=== PATIENT | female | born 1970 | race Caucasian/White ===

== ENCOUNTER 2017-08-18 21:54 | Inpatient (IN) | payer OTHER ==
[~2017-08-18] VITALS: Ht 160 cm; Wt 75.2 kg
[~2017-08-18 21:54] MED LIST: GLC/500 PO; GLIP5TAB11 PO; IBUP-103 PO; METH4PAK PO
[2017-08-18] MEDS ORDERED: MoRPHine SULFATE 4 MG/ML 1 ML CARP\\VIAL ONE (22:14)
[2017-08-18] MEDS ORDERED: SODIUM CHLORIDE 0.9% 1000ML 1,000 ML IV STA (22:14)
[2017-08-18] MEDS ORDERED: ASPIRIN 324 MG CHEW ONE (22:14)
[2017-08-18] MEDS ORDERED: ASPIRIN 81 MG CHEW PO STA (22:14)
[2017-08-18] MEDS ORDERED: MoRPHine SULFATE 4 MG/ML 1 ML CARP\\VIAL IV STA (22:14)
[2017-08-18] MEDS ORDERED: NITROGLYCERIN 0.4 MG SL PER TAB CHARGE ONE (22:15)
[2017-08-18] MEDS ORDERED: NITROGLYCERIN 0.4 MG SL PER TAB CHARGE SL PRN ×2 (22:15→23:45)
[2017-08-18] MEDS ORDERED: ONDANSETRON INJ 2 MG/ML 2 ML VIAL ONE ×2 (22:19→22:34)
--- NOTE | 2017-08-18 22:20 | EMERGENCY ROOM VISIT NOTE ---
History Report prepared by Donaldo: Elijah Alegre Under the Supervision of: Dr. Jerel Vines D.O. First contact with patient: 22:13 Chief Complaint: CHEST PAIN Stated Complaint: CHEST PAINS, VOMITTING History of Present Illness The patient is a 47 year old female who presents to the Emergency Room with complaints of worsening chest pain beginning 6 hours ago. She currently rates her discomfort a 10/10 in severity. The patient states she was making dinner when her pain began. She reports it slowly worsened throughout the night, and she became short of breath. The patient states she has a history of diabetes, hypertension, and smoking. The patient reports her father of a heart attack. She notes she did not take anything for her symptoms, and she is not allergic to anything. Source of History: patient Onset: 6 hours ago Position: chest Symptom Intensity: 10/10 Timing: worsening Associated Symptoms: + SOB Review of Systems See HPI for pertinent positives and negatives. A total of ten systems were reviewed and were otherwise negative. Past Medical & Surgical Medical Problems: (1) Diabetes (2) HTN (hypertension) Family History FH: heart attack FATHER Social History Smoking Status: Current Every Day Smoker Marital Status: single Housing Status: lives with family Current/Historical Medications Unable to Obtain Active Prescriptions or Reported Meds Allergies Coded Allergies: No Known Allergies (Unverified , 08/18/17) Physical Exam Vital Signs Date Time Temp Pulse Resp B/P (MAP) Pulse Ox O2 Delivery O2 Flow Rate FiO2 08/18/17 22:45 85 23 101/74 97 Nasal Cannula 2.0 08/18/17 22:40 84 21 110/70 97 Nasal Cannula 2.0 08/18/17 22:35 80 15 104/67 98 Nasal Cannula 2.0 08/18/17 22:30 83 15 139/73 98 Nasal Cannula 2.0 08/18/17 22:25 79 25 127/80 98 Nasal Cannula 2.0 08/18/17 22:23 83 25 121/95 99 Nasal Cannula 2.0 08/18/17 22:19 97 08/18/17 22:18 92 25 160/99 97 Nasal Cannula 2.0 08/18/17 22:17 98 Nasal Cannula 2.0 08/18/17 22:07 100 Room Air 08/18/17 22:07 100 Room Air 08/18/17 22:07 36.8 100 20 161/101 100 Room Air Physical Exam GENERAL: Awake, alert, well-appearing, moaning in distress. HENT: Normocephalic, atraumatic. Oropharynx unremarkable. EYES: Normal conjunctiva. Sclera non-icteric. NECK: Supple. No nuchal rigidity. FROM. No JVD. RESPIRATORY: Clear to auscultation. CARDIAC: Regular rate, normal rhythm. Extremities warm and well perfused. Pulses equal. ABDOMEN: Soft, non-distended. No tenderness to palpation. No rebound or guarding. No masses. RECTAL: Deferred. MUSCULOSKELETAL: Chest examination reveals no tenderness. The back is symmetrical on inspection without obvious abnormality. There is no CVA tenderness to palpation. No joint edema. LOWER EXTREMITIES: Calves are equal size bilaterally and non-tender. No edema. No discoloration. NEURO: Normal sensorium. No sensory or motor deficits noted. SKIN: No rash or jaundice noted. Medical Decision & Procedures ER Provider Diagnostic Interpretation: X-ray: Per my interpretation, radiologist review. CHEST ONE VIEW PORTABLE CLINICAL HISTORY: PORTABLE chest pain COMPARISON STUDY: No previous studies for comparison. FINDINGS: The bones soft tissues and hemidiaphragms are normal. The cardiomediastinal silhouette is normal. The lungs are clear. The pulmonary vasculature is normal. IMPRESSION: Negative chest. The above report was generated using voice recognition software. It may contain grammatical, syntax or spelling errors. Electronically signed by: Braulio Flores M.D. 08/18/2017 10:45 PM Dictated Date/Time: 08/18/2017 10:45 PM Laboratory Results 08/18/17 22:15 Red Blood Count 4.78, Mean Corpuscular Volume 82.8, Mean Corpuscular Hemoglobin 29.3, Mean Corpuscular Hemoglobin Concent 35.4, Mean Platelet Volume 10.1, Neutrophils (%) (Auto) 71.0, Lymphocytes (%) (Auto) 23.9, Monocytes (%) (Auto) 3.9, Eosinophils (%) (Auto) 0.7, Basophils (%) (Auto) 0.2, Neutrophils # (Auto) 9.61, Lymphocytes # (Auto) 3.24, Monocytes # (Auto) 0.53, Eosinophils # (Auto) 0.10, Basophils # (Auto) 0.03 08/18/17 22:15 Test 08/18/17 22:14 08/18/17 22:15 08/18/17 22:23 08/18/17 22:25 White Blood Count 13.55 K/uL (4.8-10.8) Red Blood Count 4.78 M/uL (4.2-5.4) Hemoglobin 14.0 g/dL (12.0-16.0) Hematocrit 39.6 % (37-47) Mean Corpuscular Volume 82.8 fL (80-100) Mean Corpuscular Hemoglobin 29.3 pg (25-34) Mean Corpuscular Hemoglobin Concent 35.4 g/dl (32-36) Platelet Count 271 K/uL (130-400) Mean Platelet Volume 10.1 fL (7.4-10.4) Neutrophils (%) (Auto) 71.0 % Lymphocytes (%) (Auto) 23.9 % Monocytes (%) (Auto) 3.9 % Eosinophils (%) (Auto) 0.7 % Basophils (%) (Auto) 0.2 % Neutrophils # (Auto) 9.61 K/uL (1.4-6.5) Lymphocytes # (Auto) 3.24 K/uL (1.2-3.4) Monocytes # (Auto) 0.53 K/uL (0.11-0.59) Eosinophils # (Auto) 0.10 K/uL (0-0.5) Basophils # (Auto) 0.03 K/uL (0-0.2) RDW Standard Deviation 38.0 fL (36.4-46.3) RDW Coefficient of Variation 12.7 % (11.5-14.5) Immature Granulocyte % (Auto) 0.3 % Immature Granulocyte # (Auto) 0.04 K/uL (0.00-0.02) Nucleated RBC Absolute Count (auto) 0.02 K/uL (0-0) Nucleated Red Blood Cells % 0.1 % Prothrombin Time 10.0 SECONDS (9.0-12.0) Prothromb Time International Ratio 0.9 (0.9-1.1) Activated Partial Thromboplast Time 25.3 SECONDS (21.0-31.0) Partial Thromboplastin Ratio 1.0 Est Creatinine Clear Calc Drug Dose 69.3 ml/min Estimated GFR () 82.1 Estimated GFR (Non- 70.8 BUN/Creatinine Ratio 12.7 (10-20) Calcium Level 9.3 mg/dl (8.5-10.1) Magnesium Level 2.0 mg/dl (1.8-2.4) Total Bilirubin 0.2 mg/dl (0.2-1) Direct Bilirubin < 0.1 mg/dl (0-0.2) Aspartate Amino Transf (AST/SGOT) 8 U/L (15-37) Alanine Aminotransferase (ALT/SGPT) 20 U/L (12-78) Alkaline Phosphatase 149 U/L (45-117) Total Creatine Kinase 64 U/L (26-192) Creatine Kinase MB 1.2 ng/ml (0.5-3.6) Creatine Kinase MB Ratio 1.9 (0-3.0) Total Protein 8.4 gm/dl (6.4-8.2) Albumin 3.7 gm/dl (3.4-5.0) Lipase 159 U/L (73-393) Bedside Troponin I 0.050 ng/ml (0-0.045) Bedside Hemoglobin 15.0 g/dl (12.0-16.0) Bedside Hematocrit 44 % (37-47) Bedside Sodium 135 mEq/L (135-144) Bedside Potassium 3.9 mEq/L (3.3-5.0) Bedside Chloride 95 mEq/L (101-112) Bedside Total CO2 28 mEq/l (24-31) Anion Gap 18.0 mmol/L (16-25) Bedside Blood Urea Nitrogen 12 mg/dl (7-18) Bedside Creatinine 0.7 mg/dl (0.6-1.3) Bedside Glucose (other) 421 mg/dl (70-99) Bedside Ionized Calcium (Brian) 1.16 mmol/l (1.12-1.32) Test 08/18/17 23:00 Laboratory results reviewed by me Medications Administered Medications (Trade) Dose Ordered Sig/Russ Route Start Time Stop Time Status Last Admin Dose Admin Sodium Chloride 1,000 ml @ 999 mls/hr Q1H1M STAT IV 08/18/17 22:14 08/18/17 23:14 DC 08/18/17 22:14 999 MLS/HR Morphine Sulfate (MoRPHine SULFATE INJ) 4 mg STK-MED ONCE .ROUTE 08/18/17 22:14 08/18/17 22:15 DC 08/18/17 22:14 4 MG Aspirin (Aspirin Chew) 324 mg STK-MED ONCE .ROUTE 08/18/17 22:14 08/18/17 22:15 DC 08/18/17 22:14 324 MG Nitroglycerin (Nitrostat Tab) 1.2 mg STK-MED ONCE .ROUTE 08/18/17 22:15 08/18/17 22:16 DC 08/18/17 22:15 1.2 MG Nitroglycerin (Nitrostat Tab) 0.4 mg PRN PRN SL 08/18/17 22:15 09/17/17 22:14 08/18/17 22:27 0.4 MG Ondansetron HCl (Zofran Inj) 4 mg STK-MED ONCE .ROUTE 08/18/17 22:19 08/18/17 22:20 DC 08/18/17 22:23 4 MG Miscellaneous Information (Nursing Verbal Med Order) 1 ea ONE ONCE N/A 08/18/17 22:30 08/18/17 22:31 DC 08/18/17 22:28 1 EA Heparin Sodium (Porcine) (Heparin Iv Bolus) 10,000 unit STK-MED ONCE .ROUTE 08/18/17 22:34 08/18/17 22:35 DC 08/18/17 22:34 8,000 UNIT Ondansetron HCl (Zofran Inj) 4 mg STK-MED ONCE .ROUTE 08/18/17 22:34 08/18/17 22:35 DC 08/18/17 22:36 4 MG Midazolam HCl (Versed Inj) 2 mg STK-MED ONCE .ROUTE 08/18/17 22:34 08/18/17 22:35 DC 08/18/17 22:34 1 MG Fentanyl Citrate (Fentanyl Inj) 100 mcg STK-MED ONCE .ROUTE 08/18/17 22:34 08/18/17 22:35 DC 08/18/17 22:34 25 MCG ECG Indication: chest pain Rate (beats per minute): 83 Rhythm: normal sinus Findings: ST elevation (precordial leads), other (reciprocal changes in leads II, III, and AVF: consistent with anteroseptal [place]) ED Course 2212: The patient was evaluated in room A01. A complete history and physical exam was performed. 2214 Ordered Morphine Sulfate 4mg IV, Aspirin 324 mg PO, Sodium Chloride 1000 ml @ 999 mls/hr IV 2215: Ordered Nitroglycerin 0.4mg SL, Nitroglycerin 1.2mg SL 221: Ordered Ondansetron HCl 4mg IV. Reevaluated the patient. Her pain is still as severe as before. 223: I discussed the patient's case with Dr. Olvera, Cardiology. He will evaluate to the patient. 223: Ordered Ondansetron HCl 4mg IV 2258: I discussed the patient's case with Dr. Reed [facility]. The patient will be evaluated for further management and care. Medical Decision Differential diagnoses include but are not limited to; angina, acute coronary syndrome, acute [place], thoracic dissection, anxiety. STEMI alert was called, case is discussed with Dr. Olvera will take the patient cardiac labor and delivery registered nurse. Patient was given aspirin nitroglycerin morphine and Zofran. Patient continued have 10 out of 10 pain has an EKG is consistent with anteroseptal [place]. This case was also discussed with the [facility] for admission Consults Time Called: 2216 Consulting Physician: Dr. Olvera, Cardiology Returned Call: [phone] I discussed the patient's case with Dr. Olvera Cardiology. He will evaluate to the patient. Additional Consults: Time Called: 2240 Consulted Physician: Dr. Reed [facility] Returned Call: [phone] Additional Comments: I discussed the patient's case with Dr. Reed [facility]. The patient will be evaluated for further management and care. Impression Primary Impression: Acute myocardial infarction Critical Care I have personally spent greater than 35 minutes of critical care time in the direct management of this patient. This includes bedside care, interpretation of diagnostic studies, and testing, discussion with consultants, patient, and family members, and other required patient management activities. This 35 minutes is in excess of all separately billable procedures. Scribe Attestation The scribe's documentation has been prepared under my direction and personally reviewed by me in its entirety. I confirm that the note above accurately reflects all work, treatment, procedures, and medical decision making performed by me. Departure Information Dispostion Being Evaluated By Hospitalist Prescriptions Unable to Obtain Active Prescriptions or Reported Meds Referrals Scar Ricks D.O. (PCP) Patient Instructions My [facility]
[2017-08-18] MEDS ORDERED: NURSING VERBAL MED ORDER ONE (22:30)
[2017-08-18 22:31] LABS: BASO % 0.2 %; BASO ABS # 0.03 K/uL (0-0.2); EOS % 0.7 %; HEMATOCRIT 39.6 % (37-47); IG# 0.04 K/uL (0.00-0.02); LYMPH % 23.9 %; LYMPH ABS # 3.24 K/uL (1.2-3.4); MEAN CELL VOLUME 82.8 fL (80-100); MEAN CORPUSCULAR HEMOGLOBIN 29.3 pg (25-34); MEAN CORPUSCULAR HGB CONC 35.4 g/dl (32-36); MEAN PLATELET VOLUME 10.1 fL (7.4-10.4); MONO % 3.9 %; MONO ABS # 0.53 K/uL (0.11-0.59); NEUT ABS # 9.61 K/uL (1.4-6.5); NUCLEATED RED BLOOD CELL ABS 0.02 K/uL (0-0); PLATELET COUNT 271 K/uL (130-400); RED CELL DISTRIBUTION WIDTH CV 12.7 % (11.5-14.5); WHITE BLOOD COUNT 13.55 K/uL (4.8-10.8)
[2017-08-18] MEDS ORDERED: NITROGLYCERIN/D5W 100MCG/ML 20ML SYR ONE (22:33)
[2017-08-18] MEDS ORDERED: NiCARDipine HCL INJ 2.5 MG/ML 10 ML AMP ONE (22:33)
[2017-08-18] MEDS ORDERED: FENTANYL CITRATE INJ 50 MCG/1 ML 2 ML VIAL ONE (22:34)
[2017-08-18] MEDS: HEPARIN SOD (PORCINE) 1000 UNIT/ML 10 ML VIAL ONE ×2 (22:34→23:23)
[2017-08-18] MEDS ORDERED: MIDAZOLAM HCL 1 MG/ML 2ML VIAL ONE (22:34)
[2017-08-18 22:38] LABS: ISTAT CREATININE 0.7 mg/dl (0.6-1.3); ISTAT IONIZED CALCIUM 1.16 mmol/l (1.12-1.32); ISTAT POTASSIUM 3.9 mEq/L (3.3-5.0)
[2017-08-18 22:42] LABS: INR 0.9 (0.9-1.1); PTT PATIENT 25.3 SECONDS (21.0-31.0)
--- NOTE | 2017-08-18 22:47 | DIAGNOSTIC IMAGING REPORT ---
CHEST ONE VIEW PORTABLE CLINICAL HISTORY: PORTABLE chest pain COMPARISON STUDY: No previous studies for comparison. FINDINGS: The bones soft tissues and hemidiaphragms are normal. The cardiomediastinal silhouette is normal. The lungs are clear. The pulmonary vasculature is normal. IMPRESSION: Negative chest. The above report was generated using voice recognition software. It may contain grammatical, syntax or spelling errors. Electronically signed by: Braulio Flores M.D. 08/18/2017 10:45 PM Dictated Date/Time: 08/18/2017 10:45 PM
--- NOTE | 2017-08-18 22:50 | Procedure Note ---
Pre-Mod Sedation Assessment General Date of Moderate Sedation: Aug 18, 2017. Vital Signs: Vital Signs Past 12 Hours Date Time Temp Pulse Resp B/P (MAP) Pulse Ox O2 Delivery O2 Flow Rate FiO2 08/18/17 22:23 83 25 121/95 99 Nasal Cannula 2.0 08/18/17 22:19 97 08/18/17 22:18 92 25 160/99 97 Nasal Cannula 2.0 08/18/17 22:17 98 Nasal Cannula 2.0 08/18/17 22:07 100 Room Air 08/18/17 22:07 100 Room Air 08/18/17 22:07 36.8 100 20 161/101 100 Room Air Review Cardiovascular: regular rate, rhythm, no edema Abdomen: normal bowel sounds, non tender Lungs: chest non-tender, lungs clear Airway Class: III Pre-Sedation Airway Assessment Oral Cavity: WNL Able to Visualize Vocal Cords: No Short Thick Neck: No Hx of Sleep Apnea: No Smoking Status: Current Every Day Smoker Mallampati Classification: Class III ASA Classification: Class IV Procedure Planning Contraindications-for Mod Sed: None Yes Notes The planned sedation has been discussed with the patient and consent obtained. I have identified the patient, determined the appropriateness of sedation and have assessed the patient immediately prior to the procedure. All medicine(s) and interventions are by my order.
[2017-08-18 23:02] LABS: ALBUMIN 3.7 gm/dl (3.4-5.0); ALKALINE PHOSPHATASE 149 U/L (45-117); ALT/SGPT 20 U/L (12-78); AST/SGOT 8 U/L (15-37); BLOOD UREA NITROGEN 12 mg/dl (7-18); CALCIUM 9.3 mg/dl (8.5-10.1); CARBON DIOXIDE 27 mmol/L (21-32); CKMB 1.2 ng/ml (0.5-3.6); CREATININE 0.95 mg/dl (0.60-1.20); GLUCOSE 426 mg/dl (70-99); LIPASE 159 U/L (73-393); POTASSIUM 3.9 mmol/L (3.5-5.1); SODIUM 133 mmol/L (136-145); TOTAL PROTEIN 8.4 gm/dl (6.4-8.2)
[2017-08-18] MEDS ORDERED: TICAGRELOR 90 MG TAB PO ONE (23:34)
[2017-08-18] MEDS ORDERED: ONDANSETRON INJ 2 MG/ML 2 ML VIAL IV PRN (23:45)
[2017-08-18] MEDS ORDERED: SODIUM CHLORIDE 0.9% 1000ML 1,000 ML IV SCH (23:45)
[2017-08-18] MEDS ORDERED: ACETAMINOPHEN 325 MG TAB PO PRN (23:45)
[2017-08-18 23:56] VITALS: BP 127/81; PULSE 92; O2SAT 96; BMI 28.5
--- NOTE | 2017-08-18 23:58 | NUR ---
A/I&D: PT ADMITTED TO ICU S/P HEART ALERT TO ICU 107. EKG OBTAINED, PT REPORTS CP IMPROVED. PRIMARY RN AND PA AT BEDSIDE. FAMILY COMPLETING PAPERWORK. MONITOR ATTACHED, VITAL SIGNS STABLE. D/C PLANS TO BE DETERMINED
[2017-08-18 23:59] VITALS: BP 127/81; PULSE 92; O2SAT 96
[2017-08-19] VITALS (47 sets, daily range): BP systolic 63–128; BP diastolic 22–82; PULSE 67–98; TEMP 36.5–36.8; O2SAT 92–99; BMI 28.9
[2017-08-19] MEDS ORDERED: INSULIN IV INFUSION PROTOCOL STA (00:01)
--- NOTE | 2017-08-19 00:03 | Critical Care Consultation ---
Critical Care Consultation Date of Consultation: Aug 19, 2017. Attending Physician: Dr. Brennan Graves Reason for Consultation: Heart Alert, 1 CR to LAD History of Present Illness Attending Physician: Dr. Maggi Campbellclementina Cotter is a 47yo female with a history of smoking, HTN, and poorly controlled DM who presented to the ED with 10/10 chest pain since making dinner about 6 hrs prior to arrival. Pt stated she had felt strange all day with an upset stomach; she describes as a "ball right here"; here being in the epigastric area. She stated she began sweating but felt cold. She notes some tingling of her left arm, but didn't notice if much at the time. The pain intensified over the course of the night until she started to feel short of breath. Pt denied taking any medications to alleviate the pain as she thought it had to do with something that she ate. She does report that her father at 72 of an NV. Pt was treated in the ED with morphine, 324mg ASA, Nitroglycerin and 1 L Normal Saline bolus. She complained of nausea and also received Zofran x 2 with little relief. EKG demonstrated ST elevations in the precordial leads with reciprocal changes in II, III, & AVF. Troponin was bumped at 0.05 and pt was taken to crime lab analyst by Dr. Olvera and received 1 CR stent for 100% occlusion to the proximal LAD. Pt was loaded with Brilinta and cath'd with a right radial approach. No complications with the procedure were reported to me per Dr. Olvera. Pt arrived in the unit with only continued complaints of upset stomach. She denied chest pain, pressure, or palpitations. Pt states she follows with a of [place]. She states that she had previously been treated for her DM with Metformin and then later with insulin during a . She currently takes nothing for either her DM or HTN. Pt states she continues to smoke 1 -2 cigarettes per day. Pt denied change in vision, lightheadedness, or headache. She denies recent illness, malaise, or current fever. She does continue to feel cold, requiring multiple blankets and having chills. She denies cough, dyspnea, shortness of breath, continuing chest pain, or palpitations. She continues with epigastric pain without vomiting. She denies changes in urine or bowel habits. Past Medical/Surgical History Medical Problems: AMI (acute myocardial infarction) Diabetes HTN (hypertension) Tobacco Abuse Surgical Hx: Cholecystectomy Tooth Extraction (Dentures) Family History FH: congestive heart failure MOTHER FH: heart attack FATHER ( 72 AMI) Hypertension FATHER Kidney disease MOTHER Social History Smoking Status: Current Every Day Smoker (1 -2 cigs/ day x 15 yrs) Smokeless Tobacco Use: No Alcohol Use: none Drug Use: none Marital Status: single Housing Status: lives with family Allergies Coded Allergies: No Known Allergies (Unverified , 08/18/17) Home Medications Unable to Obtain Active Prescriptions or Reported Meds Current Inpatient Medications Current Inpatient Medications Medications (Trade) Dose Ordered Sig/Russ Route Start Time Stop Time Status Last Admin Dose Admin Nitroglycerin (Nitrostat Tab) 0.4 mg PRN PRN SL 08/18/17 22:15 09/17/17 22:14 08/18/17 22:27 0.4 MG Nitroglycerin (Nitrostat Tab) 0.4 mg UD PRN SL 08/18/17 23:45 09/17/17 23:44 UNV Sodium Chloride 1,000 ml @ 125 mls/hr Q8H IV 08/18/17 23:45 08/19/17 07:44 UNV Ondansetron HCl (Zofran Inj) 4 mg Q6H PRN IV 08/18/17 23:45 09/17/17 23:44 UNV Aspirin (Ecotrin Tab) 81 mg QAM PO 08/19/17 09:00 09/18/17 08:59 UNV Atorvastatin Calcium (Lipitor Tab) 80 mg QAM PO 08/19/17 09:00 09/18/17 08:59 UNV Metoprolol Tartrate (Lopressor Tab) 12.5 mg Q12 PO 08/19/17 09:00 09/18/17 08:59 UNV Lisinopril (Zestril Tab) 5 mg QAM PO 08/19/17 09:00 09/18/17 08:59 UNV Acetaminophen (Tylenol Tab) 650 mg Q4H PRN PO 08/18/17 23:45 09/17/17 23:44 UNV Ticagrelor (Brilinta Tab) 90 mg BID PO 08/19/17 09:00 12/7/17 08:59 UNV Review of Systems 12 systems reviewed and negative other than previously mentioned in the HPI. Physical Exam Date Time Temp Pulse Resp B/P (MAP) Pulse Ox O2 Delivery O2 Flow Rate FiO2 08/18/17 23:50 74 16 118/75 (89) 98 Room Air 08/18/17 23:45 72 16 119/78 (92) 98 Room Air 08/18/17 23:35 70 16 111/87 (95) 98 Room Air 08/18/17 22:45 85 23 101/74 97 Nasal Cannula 2.0 08/18/17 22:40 84 21 110/70 97 Nasal Cannula 2.0 08/18/17 22:35 80 15 104/67 98 Nasal Cannula 2.0 08/18/17 22:30 83 15 139/73 98 Nasal Cannula 2.0 08/18/17 22:25 79 25 127/80 98 Nasal Cannula 2.0 08/18/17 22:23 83 25 121/95 99 Nasal Cannula 2.0 08/18/17 22:19 97 08/18/17 22:18 92 25 160/99 97 Nasal Cannula 2.0 08/18/17 22:17 98 Nasal Cannula 2.0 08/18/17 22:07 100 Room Air 08/18/17 22:07 100 Room Air 08/18/17 22:07 36.8 100 20 161/101 100 Room Air Vital Signs - as noted Laboratory Data - as noted Physical Exam: General - NAD, resting in bed Eyes - PERRL, EOMI No icterus, gaze conjugate ENT - Mucosa moist, no lesions or candidiasis Neck - Supple, trachea midline, no masses or lymphadenopathy, no JVD or bruits Lungs - No paradoxical chest wall movement, clear to auscultation bilaterally, no wheezes, rales, or rhonchi Heart - Reg rate and rhythm, No murmur, rubs, clicks, or gallops appreciated Abdomen - BS present, no bruits noted, tympanic to percussion, soft, nontender, nondistended, no organomegaly Extremities - No edema, pedal pulses intact Neuro - A&OX4 Strength extremities equal and appropriate bilaterally Reflexes: normal and equal CN:PERRL, EOMI, no facial asymmetry, uvula/tongue midline Laboratory Results Last 24 Hours Test 08/18/17 22:14 08/18/17 22:15 08/18/17 22:23 08/18/17 22:25 White Blood Count 13.55 K/uL Red Blood Count 4.78 M/uL Hemoglobin 14.0 g/dL Hematocrit 39.6 % Mean Corpuscular Volume 82.8 fL Mean Corpuscular Hemoglobin 29.3 pg Mean Corpuscular Hemoglobin Concent 35.4 g/dl Platelet Count 271 K/uL Mean Platelet Volume 10.1 fL Neutrophils (%) (Auto) 71.0 % Lymphocytes (%) (Auto) 23.9 % Monocytes (%) (Auto) 3.9 % Eosinophils (%) (Auto) 0.7 % Basophils (%) (Auto) 0.2 % Neutrophils # (Auto) 9.61 K/uL Lymphocytes # (Auto) 3.24 K/uL Monocytes # (Auto) 0.53 K/uL Eosinophils # (Auto) 0.10 K/uL Basophils # (Auto) 0.03 K/uL RDW Standard Deviation 38.0 fL RDW Coefficient of Variation 12.7 % Immature Granulocyte % (Auto) 0.3 % Immature Granulocyte # (Auto) 0.04 K/uL Nucleated RBC Absolute Count (auto) 0.02 K/uL Nucleated Red Blood Cells % 0.1 % Prothrombin Time 10.0 SECONDS Prothromb Time International Ratio 0.9 Activated Partial Thromboplast Time 25.3 SECONDS Partial Thromboplastin Ratio 1.0 Sodium Level 133 mmol/L Potassium Level 3.9 mmol/L Chloride Level 96 mmol/L Carbon Dioxide Level 27 mmol/L Anion Gap 10.0 mmol/L 18.0 mmol/L Blood Urea Nitrogen 12 mg/dl Creatinine 0.95 mg/dl Est Creatinine Clear Calc Drug Dose 69.3 ml/min Estimated GFR () 82.1 Estimated GFR (Non- 70.8 BUN/Creatinine Ratio 12.7 Random Glucose 426 mg/dl Calcium Level 9.3 mg/dl Magnesium Level 2.0 mg/dl Total Bilirubin 0.2 mg/dl Direct Bilirubin < 0.1 mg/dl Aspartate Amino Transf (AST/SGOT) 8 U/L Alanine Aminotransferase (ALT/SGPT) 20 U/L Alkaline Phosphatase 149 U/L Total Creatine Kinase 64 U/L Creatine Kinase MB 1.2 ng/ml Creatine Kinase MB Ratio 1.9 Total Protein 8.4 gm/dl Albumin 3.7 gm/dl Lipase 159 U/L Beta-Hydroxybutyric Acid 6.68 mg/dL Thyroid Stimulating Hormone (TSH) 0.819 uIu/ml Bedside Troponin I 0.050 ng/ml Bedside Hemoglobin 15.0 g/dl Bedside Hematocrit 44 % Bedside Sodium 135 mEq/L Bedside Potassium 3.9 mEq/L Bedside Chloride 95 mEq/L Bedside Total CO2 28 mEq/l Bedside Blood Urea Nitrogen 12 mg/dl Bedside Creatinine 0.7 mg/dl Bedside Glucose (other) 421 mg/dl Bedside Ionized Calcium (Brian) 1.16 mmol/l Test 08/18/17 23:10 Kaolin Activated Coagulation Time 235 SECONDS Diagnostic Results CHEST ONE VIEW PORTABLE CLINICAL HISTORY: PORTABLE chest pain COMPARISON STUDY: No previous studies for comparison. FINDINGS: The bones soft tissues and hemidiaphragms are normal. The cardiomediastinal silhouette is normal. The lungs are clear. The pulmonary vasculature is normal. IMPRESSION: Negative chest. The above report was generated using voice recognition software. It may contain grammatical, syntax or spelling errors. Electronically signed by: Braulio Flores M.D. 08/18/2017 10:45 PM Dictated Date/Time: 08/18/2017 10:45 PM Assessment & Plan (1) Tobacco abuse (2) AMI (acute myocardial infarction) (3) Diabetes (4) HTN (hypertension) Reason Critically Ill: Patient is an 47-year-old female who is transferred to the ICU s/p 1 CR to the Proximal LAD for STEMI. PLAN: Neuro: * Pain free currently; monitor for pain level and acute changes * A & O x 4, Without unilateral neuro changes Resp: * Supplemental O2 as needed, adq saturations on room air * Monitor on telemetry * 15 yr hx of smoking, order smoking cessation * Smoking Cessation Ordered * Nicoderm Patch ordered if needed CV: * Acute STEMI, Troponin 0.05 * Trend Troponin will continue to increase in setting of cardiac catheterization * 1 CR to the P. LAD * Repeat EKG with chest pain in in AM * ECHO ordered * Begin Post NV cardiac medications * Lisinopril, Atorvastatin, Metoprolol and ASA * Will require antiplatelet therapy * Continue Brilinta now; transition prior to discharge * Monitor on Telemetry Fluids/Renal: * NSS @ 125 currently * BUN/Cr: 12/0.95, Monitor Daily Labs * Replace Electrolytes per protocol * Monitor Urine Output ID: * WBC 13.55 * Afebrile, normotensive * No sign of infection. * Monitor Fever Curve GI/Nutrition: * NPO after midnight for AM labs * Then AHA/ DM 2 diet Heme: * H&H stable 15.0/44 * Coags WNL * Monitor daily labs Endocrine: * Accu-Checks per protocol, * Continue Lantus started by hospital team * Begin Insulin Infusion, Goal 140-180 * A1C Pending * TSH WNL CCT: 38 Minutes; This time is exclusive of all separately billable procedures. Thank you for involving us in the care of this patient. Please refer to Dr. Tay addendum for further recommendations. Call 911 and go to the Emergency Room if: * You have tightness or pain in your chest that does not go away with rest or Nitroglycerin * You are very short of breath even with rest Call your doctor if any of the following symptoms or problems start or get worse: * Shortness of breath or difficulty breathing * Wake up at night short of breath * Chest pain * Cough * Swelling of your hands, fee, or legs * More fatigued or tired with your normal activity * Palpitations - sudden fast heart beats WEIGHT * Weigh yourself every morning after using the bathroom. * Use the same scale. * Wear the same amount of clothing. * Write your weight down on your chart. * Call your doctor if you gain more than 2-3 pounds in 1-2 days. MEDICATIONS * Use this discharge instruction sheet for instructions. * Take your medications at the time your doctor ordered. * Do not skip a dose of your medicines. * If you miss a dose of medicine, take as soon as possible, but DO NOT DOUBLE A DOSE. * Read your medicine information when you get home. * Know all of the side effects of your medicine. * Call your doctor's office if you have any side effects. * Be sure all of your doctors know what medicine and herbs you take (including cold, flu, and herbal medicine). * Pain Medicine: If you do not get relief from your pain, please call your doctor for help. Take the following with you to your follow-up doctor appointments: * Weight Chart * Medication List * List of questions Do not drink excessive alcohol, beer or wine. Addendum: Reviewed her case with staff and examined and interviewed patient. Anterior NV with coronary intervention of the LAD. She is feeling better. Rx tolerated. Exam is stable. Insulin is being titrated. Routine post stent Rx in place. I have not additions/recommendations to add. Brady Tay MD
--- NOTE | 2017-08-19 00:06 | Cardiac Catheterization ---
Procedure Note Procedure Date Aug 18, 2017. Pre-Procedure Diagnosis STEMI AUC Score 9 Post-Procedure Diagnosis Severe CAD, Successful PCI, Normal Intracardiac Pressures Procedure(s) Performed Coronary Angiography, Left Heart Cath, LV Angiography, Drug Eluting Stent Fare Register Repairer Wade Flotation Tender Helper(s) Ori Estimated Blood Loss 15 Medication(s) Fentanyl, Heparin, Nicardipine, Nitroglycerin, Versed, Lidocaine 1% Ticagrelor Summary of Findings Indication: STEMI/Heart Alert Access: 6Fr Right Radial Artery Catheters: [place]; EBU 3.5 guide Findings: LM - Angiographically normal LAD - 100% occluded proximally; post-intervention - only luminal irregularities distally. Circumflex - Large caliber vessel which gives off large OM2. Distal segment small with focal 80-90% stenosis before L-PLB. Distal OM2 small with 90% focal stenosis. RCA - Dominant, moderate caliber, distal luminal irregularities. R-PDA small with moderate diffuse distal disease. LVEDP - 11 LV gram (limited) - LVEF 45%, 1+ MR -- PCI -- Antithrombotic therapy: Heparin, Ticagrelor Procedure: LM cannulated with EBU 3.5 guide Prowater wire passed across lesion into distal vessel Proximal LAD lesion predilated with 2.5 compliant balloon Dilated lesion stented with 3.0 x 18 Xience CR Stent post-dilated with 3.25 noncompliant balloon IC vasodilators administered for spasm Post procedure MARCO ANTONIO 3 flow, stent well expanded with minimal residual stenosis and no apparent cardiac complications. Arterial Closure: TR Band Summary: 1. Anterior STEMI/Occluded proximal LAD 2. Residual small multivessel coronary artery disease - 80-90% distal circumflex - 90% distal OM2 3. Low normal LV function. Normal intracardiac filling pressures. 4. Successful PCI of proximal LAD with 3.0 x 18 Xience CR (post-dilated with 3.25 NC balloon) Recommendations: Admit to ICU for continued monitoring Loaded with Ticagrelor 180mg in pipelines laborer Continue dual-antiplatelet therapy for at least 1 year. Likely switch to clopidogrel prior to discharge. Trend troponins until peak, Check Echo Start beta-migel/NELSON as BP allows High-dose statin Consult cardiac Rehab Medical management of residual CAD. Distal OM2, circumflex appear too small for stenting. Hemodynamics Rest Ao: 98/62/80 Final Ao: 108/57/84 LV: 103/11 Recommendations PCI without planned CABG Specimens None Radiation Exposure (mGy) 2051 Contrast (mls) 130 Fluids (cc crystalloids) 76 Drains None Anesthesia Moderate Procedural Complication(s) None Disposition ICU ACC Data Cardiac Status Clinical evaluation leading to the procedure CAD Presntation: STEMI STEMI or Non-STEMI: Symptom Onset Date/Time: 16:00 Anginal Classification: CCS IV Heart Failure: No, NYHA Class: CCS I Cardiogenic Shock w/in 24Hrs: No Cardiac Arrest w/in 24Hrs: No Imaging studies past 6 months: No Stress studies past 6 months: No Left Ventricular Angiography EF (%): 45% Mitral Regurgitation: 1+ Diagnostic Status: Emergency Closure Device Percutaneous Entry Location: Radial Closure Device: Radial Band Recommendations: PCI without planned CABG PCI Indication: Immediate PCI for STEMI First Noted: First EKG Lesion Segment Name: Proximal LAD Culprit Artery: Yes Stenosis Prior to Rx (%): 100% Chronic Total Occlusion: No IVUS: No FFR: No Pre-Procedure MARCO ANTONIO Flow: 0 Previously Treated Lesion: No Lesion Complexity: Non-High/Non-C Lesion Length (mm): 12 Thrombus Present: Yes Bifurcation Lesion: No Guidewire Across Lesion: Yes Guidewire: Stenosis Post-Procedure (%): 0 Post-Procedure MARCO ANTONIO Flow: 3 Device(s) Deployed: Yes Intraprocedure Events Significant Dissection: No Perforation: No
--- NOTE | 2017-08-19 00:07 | History and Physical ---
History & Physical Date & Time of Service: Aug 18, 2017 at 23:56 Chief Complaint: Chest Pains, Vomiting Primary Care Physician: Scar Ricks D.O. History of Present Illness Source: patient, hospital records, other 47 y/o F Hx DM, HTN, smoker - had intermittent central CP throughout day. Arrived in ER with persistent CP early trini. Initial EKG revealed ant elevations and a heart alert was called. Pt was whisked off to the produce laborer and diagnosed with a proximal LAD occlusion. This was successfully stented. She is presently recovering in the ICU. Denies CP or SOB - c/o some nausea. We are asked to assume management post-cath. It is noted on initial labs that she has had 2 consecutive POCs > 400. Past Medical/Surgical History Medical Problems: (1) Diabetes Status: Chronic (2) HTN (hypertension) Status: Chronic Family History FH: heart attack FATHER CAD Social History Smoking Status: Current Every Day Smoker Marital Status: single Allergies Coded Allergies: No Known Allergies (Unverified , 08/18/17) Home Medications Unable to Obtain Active Prescriptions or Reported Meds Review of Systems Constitutional: No fever, No chills, No sweats Eyes: No worsening of vision ENT: No hearing loss, No unusual epistaxis, No nasal symptoms Respiratory: + shortness of breath, No cough, No sputum, No wheezing Cardiovascular: + chest pain (resolved), No orthopnea, No PND Abdomen: No pain, No nausea, No vomiting Musculoskeletal: No joint pain Genitourinary - Female: No dysuria, No urinary frequency Neurologic: No memory loss Psychiatric: No depression symptoms Endocrine: No fatigue Hematologic / Lymphatic: No abnormal bleeding/bruising Integumentary: No rash Allergic / Immunologic: No environmental allergies Physical Exam Vital Signs Date Time Temp Pulse Resp B/P (MAP) Pulse Ox O2 Delivery O2 Flow Rate FiO2 08/18/17 23:50 74 16 118/75 (89) 98 Room Air 08/18/17 23:45 72 16 119/78 (92) 98 Room Air 08/18/17 23:35 70 16 111/87 (95) 98 Room Air 08/18/17 22:45 85 23 101/74 97 Nasal Cannula 2.0 08/18/17 22:40 84 21 110/70 97 Nasal Cannula 2.0 08/18/17 22:35 80 15 104/67 98 Nasal Cannula 2.0 08/18/17 22:30 83 15 139/73 98 Nasal Cannula 2.0 08/18/17 22:25 79 25 127/80 98 Nasal Cannula 2.0 08/18/17 22:23 83 25 121/95 99 Nasal Cannula 2.0 08/18/17 22:19 97 08/18/17 22:18 92 25 160/99 97 Nasal Cannula 2.0 08/18/17 22:17 98 Nasal Cannula 2.0 08/18/17 22:07 100 Room Air 08/18/17 22:07 100 Room Air 08/18/17 22:07 36.8 100 20 161/101 100 Room Air General Appearance: WD/WN, no apparent distress, + pertinent finding (Pale, middle-aged F - no distress.) Head: normocephalic Eyes: normal inspection ENT: normal ENT inspection, pharynx normal Neck: supple, no JVD Respiratory/Chest: chest non-tender, lungs clear, normal breath sounds Cardiovascular: regular rate, rhythm, no edema, no gallop, no JVD, no murmur, normal peripheral pulses Abdomen/GI: normal bowel sounds, non tender, soft Back: normal inspection, no CVA tenderness, no muscle spasm, normal range of motion Extremities/Musculoskelatal: normal inspection, no calf tenderness Neurologic/Psych: hyperbaric technician II-XII nml as tested, no motor/sensory deficits, alert, oriented x 3 Skin: normal color, warm/dry, no rash Diagnostics Laboratory Results Results Past 24 Hours Test 08/18/17 22:14 08/18/17 22:15 08/18/17 22:23 08/18/17 22:25 Range/Units White Blood Count 13.55 4.8-10.8 K/uL Red Blood Count 4.78 4.2-5.4 M/uL Hemoglobin 14.0 12.0-16.0 g/dL Hematocrit 39.6 37-47 % Mean Corpuscular Volume 82.8 80-100 fL Mean Corpuscular Hemoglobin 29.3 25-34 pg Mean Corpuscular Hemoglobin Concent 35.4 32-36 g/dl Platelet Count 271 130-400 K/uL Mean Platelet Volume 10.1 7.4-10.4 fL Neutrophils (%) (Auto) 71.0 % Lymphocytes (%) (Auto) 23.9 % Monocytes (%) (Auto) 3.9 % Eosinophils (%) (Auto) 0.7 % Basophils (%) (Auto) 0.2 % Neutrophils # (Auto) 9.61 1.4-6.5 K/uL Lymphocytes # (Auto) 3.24 1.2-3.4 K/uL Monocytes # (Auto) 0.53 0.11-0.59 K/uL Eosinophils # (Auto) 0.10 0-0.5 K/uL Basophils # (Auto) 0.03 0-0.2 K/uL RDW Standard Deviation 38.0 36.4-46.3 fL RDW Coefficient of Variation 12.7 11.5-14.5 % Immature Granulocyte % (Auto) 0.3 % Immature Granulocyte # (Auto) 0.04 0.00-0.02 K/uL Nucleated RBC Absolute Count (auto) 0.02 0-0 K/uL Nucleated Red Blood Cells % 0.1 % Prothrombin Time 10.0 9.0-12.0 SECONDS Prothromb Time International Ratio 0.9 0.9-1.1 Activated Partial Thromboplast Time 25.3 21.0-31.0 SECONDS Partial Thromboplastin Ratio 1.0 Sodium Level 133 136-145 mmol/L Potassium Level 3.9 3.5-5.1 mmol/L Chloride Level 96 98-107 mmol/L Carbon Dioxide Level 27 21-32 mmol/L Anion Gap 10.0 18.0 16-25 mmol/L Blood Urea Nitrogen 12 7-18 mg/dl Creatinine 0.95 0.60-1.20 mg/dl Est Creatinine Clear Calc Drug Dose 69.3 ml/min Estimated GFR () 82.1 Estimated GFR (Non- 70.8 BUN/Creatinine Ratio 12.7 10-20 Random Glucose 426 70-99 mg/dl Calcium Level 9.3 8.5-10.1 mg/dl Magnesium Level 2.0 1.8-2.4 mg/dl Total Bilirubin 0.2 0.2-1 mg/dl Direct Bilirubin < 0.1 0-0.2 mg/dl Aspartate Amino Transf (AST/SGOT) 8 15-37 U/L Alanine Aminotransferase (ALT/SGPT) 20 12-78 U/L Alkaline Phosphatase 149 45-117 U/L Total Creatine Kinase 64 26-192 U/L Creatine Kinase MB 1.2 0.5-3.6 ng/ml Creatine Kinase MB Ratio 1.9 0-3.0 Total Protein 8.4 6.4-8.2 gm/dl Albumin 3.7 3.4-5.0 gm/dl Lipase 159 73-393 U/L Beta-Hydroxybutyric Acid 6.68 0.2-2.81 mg/dL Thyroid Stimulating Hormone (TSH) 0.819 0.300-4.500 uIu/ml Bedside Troponin I 0.050 0-0.045 ng/ml Bedside Hemoglobin 15.0 12.0-16.0 g/dl Bedside Hematocrit 44 37-47 % Bedside Sodium 135 135-144 mEq/L Bedside Potassium 3.9 3.3-5.0 mEq/L Bedside Chloride 95 101-112 mEq/L Bedside Total CO2 28 24-31 mEq/l Bedside Blood Urea Nitrogen 12 7-18 mg/dl Bedside Creatinine 0.7 0.6-1.3 mg/dl Bedside Glucose (other) 421 70-99 mg/dl Bedside Ionized Calcium (Brian) 1.16 1.12-1.32 mmol/l EKG Initial EKG with ant elevations / STEMI Impression Assessment and Plan 47 y/o F Hx DM, HTN, smoker - had intermittent central CP throughout day. Arrived in ER with persistent CP early trini. Initial EKG revealed ant elevations and a heart alert was called. Pt was whisked off to the produce laborer and diagnosed with a proximal LAD occlusion. This was successfully stented. She is presently recovering in the ICU. Denies CP or SOB - c/o some nausea. We are asked to assume management post-cath. It is noted on initial labs that she has had 2 consecutive POCs > 400. 1) STEMI - post single CR to prox LAD - Placed on Brilinta, ASA, Statin, full- dose Heparin per cardio 2) DM - hyperglycemia without DKA - sliding scale applied - Lantus provided 3) HTN - cont B migel - Statin Full code - Full dose Heparin Total time for this admit including review of labs, meds, imaging, EKG - discussion with pt and bed bug exterminator - 30 min Level of Care Critical Care Resuscitation Status FULL RESUSCITATION VTE Prophylaxis VTE Risk Assessment Done? Y/N: Yes Risk Level: Moderate Given or contraindicated: Other Anticoagulation
[2017-08-19] MEDS ORDERED: LANTUS PER UNIT CHARGE SC STA (00:15)
[2017-08-19] MEDS ORDERED: MODERATE STRESS LEVEL ONE (00:15)
[2017-08-19] MEDS ORDERED: INSULIN PROTOCOL GOAL RANGE ONE (00:15)
[2017-08-19] MEDS ORDERED: GLUCAGON FOR INJ 1 MG VIAL SQ PRN (00:30)
[2017-08-19] MEDS ORDERED: GLUCOSE 10 TABS/TUBE PO PRN (00:30)
[2017-08-19] MEDS ORDERED: GLUCOSE 40% GEL 15 GM TUBE PO PRN (00:30)
[2017-08-19] MEDS ORDERED: DEXTROSE 50% 50 ML SYR IV PRN (00:30)
--- NOTE | 2017-08-19 00:46 | CARDIOLOGY CONSULTATION ---
DATE OF CONSULTATION: 08/18/2017 REASON FOR CONSULTATION: STEMI/heart alert. REFERRING PHYSICIAN: Dr. Arevalo in the ED. HISTORY OF PRESENT ILLNESS: Mrs. Cotter is a pleasant 47-year-old woman with a history of poorly controlled type 2 diabetes, tobacco abuse who presented today with more than 5 hours of persistent chest pain, and found to have anterior ST elevations on presenting EKG. The patient states she was in her usual state of health up until about 4:00 p.m. on 08/18/2017 when developed substernal chest pain. This pain gradually progressed and was associated with nausea and vomiting. The pain became severe 07/22 and presented to the ED. Upon arrival to the ED, approximately 10:00, the patient was hemodynamically stable. Initial EKG showed ST elevations in V1 and V2 with reciprocal ST depressions in leads 3 and AVF. She received morphine, Zofran and aspirin in ED and a heart alert was activated. In the lab support tech, coronary angiography via the right radial artery showed an occluded proximal LAD. This was treated with 1 drug-eluting stent with good angiographic result. She was noted to have severe residual disease in the distal OM2 and her distal circumflex. These vessels were small and thought not amenable to coronary stenting. PAST MEDICAL HISTORY: Type 2 diabetes on oral medications, reportedly poorly controlled per family. HOME MEDICATIONS: Unknown at time of interview. FAMILY HISTORY: Questionable family history of coronary artery disease in her father. SOCIAL HISTORY: She smokes vaporized device daily. She is single but lives with her partner for more than 9 years. ALLERGIES: No known drug allergies. REVIEW OF SYSTEMS: Not completed in an emergent setting. PHYSICAL EXAMINATION: VITAL SIGNS: Temperature 36.8, pulse 83, blood pressure 125/95. Satting 99% on 2 liters. GENERAL: The patient appeared in acute distress on presentation and was more comfortable post procedure. HEENT: Sclerae anicteric. Oropharynx is clear. LUNGS: Clear to auscultation bilaterally. HEART: Tachycardic, but regular with no appreciable murmurs. ABDOMEN: Soft, obese, nontender. EXTREMITIES: Warm with no significant lower extremity edema. She had intact distal pulses including 2+ radial pulses bilaterally. SKIN: Showed no rashes or lesions. NEUROLOGIC: Grossly nonfocal. PSYCHIATRIC: Alert, oriented and appropriate. LABORATORY DATA: Sodium was 135, potassium 3.9, BUN was 12, creatinine 0.7. Point of care glucose was 421. Point of care troponin was 0.05. White blood cell count 13.5, hemoglobin 14, platelets of 271. UA pending. Chest x-ray showed no acute cardiopulmonary process. IMPRESSION AND PLAN: 1. Anterior ST elevation myocardial infarction, status post primary percutaneous coronary intervention with 1 drug-eluting stent. 2. Residual small vessel coronary artery disease. 3. Poorly controlled diabetes/hyperglycemia. 4. Questionable hypertension. 5. Tobacco use. Mrs. Cotter is here with more than 5 hours of chest pain, found to have an anterior ST elevation and an occluded proximal LAD. She was treated with primary PCI with successful revascularization of her LAD. Post-procedure she was largely chest pain free and hemodynamically and electrically stable. Going forward, the patient will be admitted to the ICU for additional monitoring and diabetes management. She was loaded with ticagrelor in the lab support tech and we will plan to continue on dual antiplatelet therapy for at least the next year. Likely switch to clopidogrel prior to discharge. We will plan to start on metoprolol, lisinopril and high dose atorvastatin. We will trend her troponins until it peak and check an echocardiogram tomorrow. We will continue to follow along the patient while in the hospital. Thank you for consultation.
[2017-08-19] MEDS ORDERED: NovoLIN-R BOLUS FROM BAG IV ONE (01:15)
[2017-08-19] MEDS ORDERED: INSULIN REGULAR 250 UNITS in SODIUM CHLORIDE 0.9% 250ML 250 ML IV SCH (01:30)
--- NOTE | 2017-08-19 02:50 | NUR ---
A- 0001 DR MONTENEGRO AND SUE KOHLI AWARE OF BLOOD SUGAR 418/422. - 30 UNITS LANTUS GIVEN ORDERED. 0030 PT C/O MIDSTERNAL TO UPPER ABD PRESSURE 3/10 - DR MONTES HERE AND MADE AWARE. ~0130 INSULIN GTT STARTED AT 1.8ML/HR AND BOLUS OF 2ML - UNABLE TO BOLUS VIA PUMP - PHARMACY AWARE AND 2 ML INSULIN BOLUS SENT. PT INSTRUCTED ON S/S HYPOGLYCEMIA. TR BAND SITE BEING DEFLATED. SITE IS CLEAR. NO BLEEDING OR OOZING. 0230 BLOOD SUGAR 389 - INSULIN GTT TO 2.2 ML/HR. PT STATES MIDSTERNAL TO UPPER ABD PRESSURE IS 1/10. DENIES N/V. TR BAND SITE INTACT.
--- NOTE | 2017-08-19 04:36 | NUR ---
0330 CSBG 317 - INSULIN GTT TO 2.6ML/HR - NO CHANGE IN STATUS. TR BAND DEFLATED. SITE INTACT, NO BLEEDING. BIOCLUSSIVE W/ 2X2 APPLIED. 0430 CSBG 289 - INSULIN GTT TO 3.1NL/HR - NO CHANGE IN STATUS.
--- NOTE | 2017-08-19 05:53 | NUR ---
A- 0530 CSBG 255 - INSULIN GTT AT 3.1ML/HR - PT IS RESTING QUIETLY. R RADIAL TR BAND SITE INTACT W/ BIOCLUSSIVE AND 2X2, NO BLEEDING FROM SITE. NO CHANGE IN STATUS.
[2017-08-19 06:25] LABS: BASO % 0.1 %; BASO ABS # 0.01 K/uL (0-0.2); HEMATOCRIT 35.8 % (37-47); HEMOGLOBIN 12.5 g/dL (12.0-16.0); IG# 0.04 K/uL (0.00-0.02); LYMPH % 12.9 %; LYMPH ABS # 1.92 K/uL (1.2-3.4); MEAN CELL VOLUME 82.5 fL (80-100); MEAN CORPUSCULAR HEMOGLOBIN 28.8 pg (25-34); MEAN CORPUSCULAR HGB CONC 34.9 g/dl (32-36); MEAN PLATELET VOLUME 9.9 fL (7.4-10.4); MONO % 3.3 %; MONO ABS # 0.49 K/uL (0.11-0.59); NEUT % 83.4 %; NEUT ABS # 12.39 K/uL (1.4-6.5); PLATELET COUNT 233 K/uL (130-400); RED CELL DISTRIBUTION WIDTH CV 12.7 % (11.5-14.5); RED CELL DISTRIBUTION WIDTH SD 38.6 fL (36.4-46.3); WHITE BLOOD COUNT 14.85 K/uL (4.8-10.8)
[2017-08-19 06:25] LABS: HEMOGLOBIN A1C 13.3 % (4.5-5.6)
--- NOTE | 2017-08-19 06:41 | NUR ---
A-0630 CSBG 209 - INSULIN GTT AT 3.1 ML/HR. PT RESTING QUIETLY. NO COMPLAINTS VOICED.
[2017-08-19] MEDS ORDERED: INSULIN ASPART 100 UNITS/ML 3 ML PEN SC SCH (06:45)
[2017-08-19 07:01] LABS: CALCIUM 8.2 mg/dl (8.5-10.1); CREATININE 0.63 mg/dl (0.60-1.20); POTASSIUM 3.8 mmol/L (3.5-5.1)
[2017-08-19 07:27] LABS: PHOSPHORUS 3.2 mg/dl (2.5-4.9)
--- NOTE | 2017-08-19 07:30 | NUR ---
A: PT RESTING IN BED. PT ASSESSMENT CHARTED. PT IN NO DISTRESS. PT NO COMPLAINTS. PT DENIES PAIN. PT DENIES SOB. PT REPORTING NON RATEABLE, NONRADIATING CHEST PRESSURE. PT BREAKFAST HELD UNTIL SEEN BY MD. WILL CONTINUE TO MONITOR .
[2017-08-19] MEDS: NICOTINE 7 MG/24 HR TDSY TD SCH (09:00)
[2017-08-19] MEDS: INSULIN ASPART 100 UNITS/ML 3 ML PEN SC SCH ×4 (09:00→20:04)
[2017-08-19] MEDS: TICAGRELOR 90 MG TAB PO SCH ×2 (09:00→20:06)
[2017-08-19] MEDS: INSULIN GLARGINE SOLOSTAR 100 UNITS/ML 3 ML PEN SC SCH ×2 (09:14→20:09)
--- NOTE | 2017-08-19 09:21 | ECHOCARDIOGRAM REPORT ---
*NOTICE TO RECEIVING REPUBLICAN AGENCY This information is strictly Confidential and protected under [place] law. [place] law prohibits you from making any further disclosure of this information unless further disclosure is expressly permitted by the written consent of the person to whom it pertains or is authorized by law. A general authorization for the release of medical or other information is not sufficient for this purpose. Hospital accepts no responsibility if the information is made available to any other person, INCLUDING THE PATIENT. Interpretation Summary * Name: ENRIQUETA ETIENNE Study Date: 08/19/2017 07:26 AM BP: 100/66 mmHg * [facility] HR: 74 * : 1970 (M/d/yyyy) Gender: Female Height: 63 in * Age: 47 yrs Ethnicity: [place] Weight: 160 lb * Ordering Physician: Mario Olvera * Referring Physician: Self, Referred * Performed By: Katie Burrell RCS * * Reason For Study: AMI * BSA: 1.8 m2 * -- Conclusions -- * 1. Normal LV size and wall thickness. * 2. LVEF 40-45%. Severe hypokinesis involving mid anterior, anteroseptum and septal thornton. Apical akinesis. * 3. Normal RV size and function. * 4. No significant valvular pathology. * 5. Normal estimated PA pressure. Est RA 8 mmHg. * 6. No prior studies for comparison. Procedure Details * A complete two-dimensional transthoracic echocardiogram was performed (2D, M-mode, Doppler and color flow Doppler). Left Ventricle * The left ventricle is grossly normal size. * There is normal left ventricular wall thickness. * Ejection Fraction = 40-45%. * Severe hypokinesis involving mid anterior, anteroseptum and septal thornton. Apical akinesis. Right Ventricle * The right ventricle is grossly normal size. * The right ventricular systolic function is normal as assessed by tricuspid annular plane systolic excursion (TAPSE) (normal >1.5 cm). Atria * The left atrial size is normal. * Right atrial size is normal. * No ASD detected; PFO is not assessed. Mitral Valve * The mitral valve is grossly normal. * There is no mitral valve stenosis. * There is trace mitral regurgitation. Tricuspid Valve * The tricuspid valve is not well visualized, but is grossly normal. * There is no tricuspid stenosis. * There is trace tricuspid regurgitation. Aortic Valve * The aortic valve opens well. * The aortic valve is trileaflet. * No hemodynamically significant valvular aortic stenosis. * There is no significant aortic regurgitation. Pulmonic Valve * The pulmonary valve is inadequately visualized, but the Doppler data is adequate for interpretation. * There is no pulmonic valvular stenosis. * Trace pulmonic valvular regurgitation. Great Vessels * The aortic root and proximal ascending aorta are normal sized. Pericardium/Pleural * There is no pericardial effusion. Great Vessels * IVC < 2.1, <50% change with respiration. Est RA 8 mmHg. * There is no evidence of pulmonary hypertension. The PA systolic pressure is less than 36 mmHg. MMode 2D Measurements and Calculations IVSd 0.95 cm IVSs 1.1 cm LVIDd 4.0 cm LVIDs 2.9 cm LVPWd 0.89 cm LVPWs 1.4 cm IVS/LVPW 1.1 FS 26.9 % EDV(Teich) 70.1 ml ESV(Teich) 32.9 ml EF(Teich) 53.1 % EDV(cubed) 64.1 ml ESV(cubed) 25.0 ml EF(cubed) 61.0 % % IVS thick 17.1 % % LVPW thick 55.0 % LV mass(C)d 113.5 grams LV mass(C)dI 64.5 grams/m\S\2 LV mass(C)s 112.4 grams LV mass(C)sI 63.9 grams/m\S\2 SV(Teich) 37.2 ml SI(Teich) 21.1 ml/m\S\2 SV(cubed) 39.1 ml SI(cubed) 22.2 ml/m\S\2 Ao root diam 2.6 cm Ao root area 5.1 cm\S\2 ACS 1.8 cm LA dimension 3.1 cm LA/Ao 1.2 LVOT diam 1.8 cm LVOT area 2.5 cm\S\2 LVAd ap4 32.4 cm\S\2 LVLd ap4 7.4 cm EDV(MOD-sp4) 114.3 ml EDV(sp4-el) 120.2 ml LVAs ap4 22.2 cm\S\2 LVLs ap4 6.6 cm ESV(MOD-sp4) 61.4 ml ESV(sp4-el) 63.0 ml EF(MOD-sp4) 46.3 % EF(sp4-el) 47.6 % LVAd ap2 28.5 cm\S\2 LVLd ap2 7.2 cm EDV(MOD-sp2) 90.8 ml EDV(sp2-el) 95.2 ml LVAs ap2 19.2 cm\S\2 LVLs ap2 6.3 cm ESV(MOD-sp2) 47.9 ml ESV(sp2-el) 50.1 ml EF(MOD-sp2) 47.2 % EF(sp2-el) 47.4 % LVLd %diff -2.97 % EDV(MOD-bp) 102.9 ml LVLs %diff -6.05 % ESV(MOD-bp) 54.7 ml EF(MOD-bp) 46.8 % SV(MOD-sp4) 52.9 ml SI(MOD-sp4) 30.1 ml/m\S\2 SV(MOD-sp2) 42.9 ml SI(MOD-sp2) 24.4 ml/m\S\2 SV(MOD-bp) 48.2 ml SI(MOD-bp) 27.4 ml/m\S\2 SV(sp4-el) 57.2 ml SI(sp4-el) 32.5 ml/m\S\2 SV(sp2-el) 45.1 ml SI(sp2-el) 25.6 ml/m\S\2 Doppler Measurements and Calculations MV E max attila 68.5 cm/sec MV A max attila 87.4 cm/sec MV E/A 0.78 MV P1/2t max attila 72.5 cm/sec MV P1/2t 100.2 msec MVA(P1/2t) 2.2 cm\S\2 MV dec slope 211.9 cm/sec\S\2 MV dec time 0.21 sec Ao V2 max 100.2 cm/sec Ao max PG 4.0 mmHg Ao max PG (full) 0.88 mmHg ALEX(V,A) 2.2 cm\S\2 ALEX(V,D) 2.2 cm\S\2 LV V1 max PG 3.1 mmHg LV V1 max 88.4 cm/sec PA V2 max 72.5 cm/sec PA max PG 2.1 mmHg
--- NOTE | 2017-08-19 09:25 | NUR ---
A; PT NAUSEA. PT VERY POOR APPETITE. INSULIN DRIP CHARTED. PT ASSESSMENT UNCHANGED. PT IN NO DISTRESS.
[2017-08-19] MEDS ORDERED: INFLUENZA ADMINISTRATION CHARGE ONE (10:00)
[2017-08-19] MEDS ORDERED: PNEUMOCOCCAL POLYSACCHARIDES 25 MCG/0.5 ML VIAL/SYR IM. ONE (10:00)
[2017-08-19] MEDS ORDERED: PNEUMOCOCCAL ADMINISTRATION CHARGE ONE (10:00)
[2017-08-19] MEDS ORDERED: INFLUENZA VIRUS QUAD VACCINE 0.5 ML SYR IM. ONE (10:00)
--- NOTE | 2017-08-19 10:09 | Cardiology Follow-Up ---
Subjective Subjective Date of Service: Aug 19, 2017. Pt evaluation today including: conversation w/ patient, physical exam, chart review, lab review, review of studies, review of inpatient medication list Additional Details: No chest pain or shortness of breath this AM Still nauseated. No pain at access site. Tele reviewed -- no events overnight. Review of Systems Constitutional: No fever ENT: No hearing loss Respiratory: No cough Cardiac: No chest pain Abdomen: + nausea Heme: No abnormal bleeding/bruising Endo: No fatigue Skin: No rash Objective Vital Signs Last Vital Signs Documentation Date Time Temp Pulse Resp B/P (MAP) Pulse Ox O2 Delivery O2 Flow Rate FiO2 08/19/17 09:26 36.7 84 16 105/66 (79) 98 Nasal Cannula 2.0 Physical Exam: General Appearance: no apparent distress Neck: supple, no JVD Respiratory/Chest: chest non-tender, lungs clear, normal breath sounds Cardiovascular: regular rate, rhythm, no murmur Abdomen: normal bowel sounds, soft Extremities: no pedal edema, no calf tenderness, + pertinent finding (right radial artery - no hematoma, ecchymosis. Intact distal sensation. ) Neurologic/Psychiatric: alert, normal mood/affect, oriented x 3 Skin: normal color, warm/dry Assessment and Plan 1. Anterior STEMI s/p PPCI with CR to proximal LAD 2. Residual small vessel CAD 3. Poorly controlled DM/hyperglycemia 4. Hypertension Chest pain free, hemodynamically and electrically stable. LAD distribution wall motion on echo. LVEF 40-45%. No clinical signs of heart failure No access site complications. -- Continue to monitor in ICU on telemetry, trend troponin's until peak -- Continue ASA/Ticagrelor --> will switch to plavix day of discharge. -- Start NELSON/Beta-migel today. -- High-intensity statin -- medical management residual CAD. Will follow. Medications: Current Inpatient Medications Medications (Trade) Dose Ordered Sig/Russ Route Start Time Stop Time Status Last Admin Dose Admin Nitroglycerin (Nitrostat Tab) 0.4 mg UD PRN SL 08/18/17 23:45 09/17/17 23:44 Ondansetron HCl (Zofran Inj) 4 mg Q6H PRN IV 08/18/17 23:45 09/17/17 23:44 08/19/17 09:11 4 MG Aspirin (Ecotrin Tab) 81 mg QAM PO 08/19/17 09:00 09/18/17 08:59 Atorvastatin Calcium (Lipitor Tab) 80 mg QAM PO 08/19/17 09:00 09/18/17 08:59 Metoprolol Tartrate (Lopressor Tab) 12.5 mg Q12 PO 08/19/17 09:00 09/18/17 08:59 Lisinopril (Zestril Tab) 5 mg QAM PO 08/19/17 09:00 09/18/17 08:59 Acetaminophen (Tylenol Tab) 650 mg Q4H PRN PO 08/18/17 23:45 09/17/17 23:44 Ticagrelor (Brilinta Tab) 90 mg BID PO 08/19/17 09:00 09/18/17 08:59 Glucose (Glucose 40% Gel) 15-30 GRAMS 15 GRAMS... UD PRN PO 08/19/17 00:30 09/18/17 00:29 Glucose (Glucose Chew Tab) 4-8 Tablets 4 Tabl... UD PRN PO 08/19/17 00:30 09/18/17 00:29 Dextrose (Dextrose 50% 50ML Syringe) 25-50ML OF 50% DW IV FOR... UD PRN IV 08/19/17 00:30 09/18/17 00:29 Glucagon (Glucagon Inj) 1 mg UD PRN SQ 08/19/17 00:30 09/18/17 00:29 Insulin Aspart (novoLOG ASPART) SLIDING SCALE PCHS SC 08/19/17 09:00 09/18/17 08:59 Nicotine (Nicoderm Cq 7 Mg Patch) 1 patch QAM TD 08/19/17 09:00 09/18/17 08:59 Miscellaneous (Remove Nicoderm Patch) 1 ea HS N/A 08/19/17 21:00 09/18/17 20:59 Insulin Human Regular 250 units/ Sodium Chloride 252.5 ml @ 0 mls/hr Q24H IV 08/19/17 01:30 09/18/17 01:29 08/19/17 01:53 1.8 MLS/HR Insulin Glargine (Lantus Solostar Pen) 10 units BID SC 08/19/17 09:00 09/18/17 08:59 08/19/17 09:14 10 UNITS Influenza Virus Vaccine Quadrival (Flucelvax Quad Vaccine) 0.5 ml ONCE ONCE IM. 08/19/17 10:00 08/19/17 10:01 UNV Pneumococcal Polysaccharide Vaccine (Pneumovax-23 Inj) 25 mcg ONCE ONCE IM. 08/19/17 10:00 08/19/17 10:01 UNV Lab Results: 08/19/17 06:09 Red Blood Count 4.34, Mean Corpuscular Volume 82.5, Mean Corpuscular Hemoglobin 28.8, Mean Corpuscular Hemoglobin Concent 34.9, Mean Platelet Volume 9.9, Neutrophils (%) (Auto) 83.4, Lymphocytes (%) (Auto) 12.9, Monocytes (%) (Auto) 3.3, Eosinophils (%) (Auto) 0.0, Basophils (%) (Auto) 0.1, Neutrophils # (Auto) 12.39, Lymphocytes # (Auto) 1.92, Monocytes # (Auto) 0.49, Eosinophils # (Auto) 0.00, Basophils # (Auto) 0.01 08/19/17 06:09 Test 08/18/17 22:15 08/18/17 22:23 08/18/17 22:25 08/18/17 23:10 Nucleated RBC Absolute Count (auto) 0.02 K/uL (0-0) Nucleated Red Blood Cells % 0.1 % Prothrombin Time 10.0 SECONDS (9.0-12.0) Prothromb Time International Ratio 0.9 (0.9-1.1) Activated Partial Thromboplast Time 25.3 SECONDS (21.0-31.0) Partial Thromboplastin Ratio 1.0 Estimated Average Glucose 335 mg/dl Hemoglobin A1c 13.3 % (4.5-5.6) Total Bilirubin 0.2 mg/dl (0.2-1) Direct Bilirubin < 0.1 mg/dl (0-0.2) Aspartate Amino Transf (AST/SGOT) 8 U/L (15-37) Alanine Aminotransferase (ALT/SGPT) 20 U/L (12-78) Alkaline Phosphatase 149 U/L (45-117) Total Creatine Kinase 64 U/L (26-192) Creatine Kinase MB 1.2 ng/ml (0.5-3.6) Creatine Kinase MB Ratio 1.9 (0-3.0) Total Protein 8.4 gm/dl (6.4-8.2) Albumin 3.7 gm/dl (3.4-5.0) Lipase 159 U/L (73-393) Beta-Hydroxybutyric Acid 6.68 mg/dL (0.2-2.81) Thyroid Stimulating Hormone (TSH) 0.819 uIu/ml (0.300-4.500) Bedside Troponin I 0.050 ng/ml (0-0.045) Bedside Hemoglobin 15.0 g/dl (12.0-16.0) Bedside Hematocrit 44 % (37-47) Bedside Sodium 135 mEq/L (135-144) Bedside Potassium 3.9 mEq/L (3.3-5.0) Bedside Chloride 95 mEq/L (101-112) Bedside Total CO2 28 mEq/l (24-31) Bedside Blood Urea Nitrogen 12 mg/dl (7-18) Bedside Creatinine 0.7 mg/dl (0.6-1.3) Bedside Glucose (other) 421 mg/dl (70-99) Bedside Ionized Calcium (Brian) 1.16 mmol/l (1.12-1.32) Kaolin Activated Coagulation Time 235 SECONDS (94-140) Test 08/19/17 06:09 08/19/17 09:54 White Blood Count 14.85 K/uL (4.8-10.8) Red Blood Count 4.34 M/uL (4.2-5.4) Hemoglobin 12.5 g/dL (12.0-16.0) Hematocrit 35.8 % (37-47) Mean Corpuscular Volume 82.5 fL (80-100) Mean Corpuscular Hemoglobin 28.8 pg (25-34) Mean Corpuscular Hemoglobin Concent 34.9 g/dl (32-36) Platelet Count 233 K/uL (130-400) Mean Platelet Volume 9.9 fL (7.4-10.4) Neutrophils (%) (Auto) 83.4 % Lymphocytes (%) (Auto) 12.9 % Monocytes (%) (Auto) 3.3 % Eosinophils (%) (Auto) 0.0 % Basophils (%) (Auto) 0.1 % Neutrophils # (Auto) 12.39 K/uL (1.4-6.5) Lymphocytes # (Auto) 1.92 K/uL (1.2-3.4) Monocytes # (Auto) 0.49 K/uL (0.11-0.59) Eosinophils # (Auto) 0.00 K/uL (0-0.5) Basophils # (Auto) 0.01 K/uL (0-0.2) RDW Standard Deviation 38.6 fL (36.4-46.3) RDW Coefficient of Variation 12.7 % (11.5-14.5) Immature Granulocyte % (Auto) 0.3 % Immature Granulocyte # (Auto) 0.04 K/uL (0.00-0.02) Anion Gap 8.0 mmol/L (3-11) Est Creatinine Clear Calc Drug Dose 105.2 ml/min Estimated GFR () 122.9 Estimated GFR (Non- 106.1 BUN/Creatinine Ratio 19.6 (10-20) Calcium Level 8.2 mg/dl (8.5-10.1) Phosphorus Level 3.2 mg/dl (2.5-4.9) Magnesium Level 2.0 mg/dl (1.8-2.4) Troponin I 84.400 ng/ml (0-0.045) Triglycerides Level 175 mg/dl (0-150) Cholesterol Level 233 mg/dl (0-200) HDL Cholesterol 56 mg/dl LDL Cholesterol, Calculated 142 mg/dl VLDL Cholesterol, Calculated 35 mg/dl Cholesterol/HDL Ratio 4.2 Bedside Glucose 149 mg/dl (70-90) Date/Time Source Procedure Growth Status 08/19/17 00:00 Nasal MRSA DNA Surveillance Screen - Final Specimen Negative for MRSA by DNA Probe Complete
--- NOTE | 2017-08-19 11:00 | NUR ---
A: PT RESTING IN BED. PT ASSESSMENT CHARTED. PT IN NO DISTRESS. PT NO COMPLAINTS. PT DENIES NAUSEA. PT IN NO DISTRESS. WILL CONTINUE TO MONITOR.
--- NOTE | 2017-08-19 11:41 | NUR ---
Consult received re: Diabetic diet education/poor Diabetic control. Please refer to linked assessment Addendum: 08/19/17 at [address] Amended: Links added.
[2017-08-19] MEDS: ATORVASTATIN 40 MG TAB PO SCH (12:08)
[2017-08-19] MEDS: ASPIRIN 81 MG ECTAB PO SCH (12:08)
[2017-08-19] MEDS: METOPROLOL TARTRATE 25 MG TAB PO SCH ×2 (12:08→20:07)
--- NOTE | 2017-08-19 12:08 | Progress Note ---
Subjective Date of Service: Aug 19, 2017. Subjective Pt evaluation today including: conversation w/ patient, conversation w/ family , physical exam, chart review, lab review, review of studies, conversation w/ consultant teacher, review of inpatient medication list Sitting up in bed eating lunch, no chest pain, no complaining, on insulin drip because of hyperglycemia Review of Systems Constitutional: No fever, No chills, No sweats, No weight loss, No weakness, No fatigue, No problem reported Eyes: No worsening of vision, No eye pain, No redness, No discharge, No diplopia ENT: No hearing loss, No unusual epistaxis, No nasal symptoms, No sore throat, No tinnitus, No dental problems, No trouble swallowing Respiratory: No cough, No sputum, No wheezing, No shortness of breath, No dyspnea on exertion, No dyspnea at rest, No hemoptysis Cardiac: No chest pain, No orthopnea, No PND, No edema, No claudication, No palpitations Abdomen: No pain, No nausea, No vomiting, No diarrhea, No constipation Musculoskeletal: No joint pain, No muscle pain, No swelling, No calf pain Female : No dysuria, No urinary frequency, No hematuria, No incontinence, No abnormal vaginal bleeding, No vaginal discharge Neurologic: No memory loss, No paralysis, No weakness, No numbness/tingling, No vertigo, No balance problems Psychiatric: No depression symptoms, No anhedonism, No anxiety, No insomnia, No substance abuse Heme: No abnormal bleeding/bruising, No clotting problems, No swollen lymph nodes, No night sweats Endo: No fatigue, No excessive thirst, No excessive urination Skin: No rash, No itch, No new/changing skin lesions, No color change, No bleeding Objective Vital Signs Date Time Temp Pulse Resp B/P (MAP) Pulse Ox O2 Delivery O2 Flow Rate FiO2 08/19/17 11:15 36.5 81 16 104/68 (80) 98 Nasal Cannula 2.0 08/19/17 11:15 Nasal Cannula 2.0 08/19/17 09:26 36.7 84 16 105/66 (79) 98 Nasal Cannula 2.0 08/19/17 07:30 36.7 72 16 115/77 (90) 98 Nasal Cannula 2.0 08/19/17 07:30 Nasal Cannula 2.0 08/19/17 05:31 74 16 100/66 (77) 97 08/19/17 05:00 86 20 120/82 (95) 98 08/19/17 04:30 79 13 103/66 (78) 97 08/19/17 04:00 98 Nasal Cannula 2.0 08/19/17 04:00 85 20 102/66 (78) 97 08/19/17 03:30 36.7 80 13 109/69 (82) 98 08/19/17 03:00 75 12 101/63 (76) 97 08/19/17 02:35 90 20 111/66 (81) 98 Nasal Cannula 2.0 08/19/17 02:10 79 13 112/70 (84) 96 08/19/17 02:01 90 22 120/82 (95) 95 08/19/17 01:50 77 15 112/69 (83) 95 08/19/17 01:40 88 20 121/76 (91) 97 08/19/17 01:30 75 12 104/73 (83) 95 08/19/17 01:21 73 13 105/70 (82) 95 08/19/17 01:11 72 14 117/74 (88) 94 08/19/17 01:05 72 13 92 08/19/17 01:01 36.5 75 11 119/78 (92) 95 08/19/17 00:37 79 16 128/82 (97) 93 Room Air 08/19/17 00:21 86 18 127/77 (94) 98 Room Air 08/18/17 23:59 92 22 127/81 (96) 96 Room Air 08/18/17 23:56 Room Air 08/18/17 23:56 92 22 127/81 (96) 96 Room Air 08/18/17 23:56 92 22 127/81 (96) 96 Room Air 08/18/17 23:50 74 16 118/75 (89) 98 Room Air 08/18/17 23:45 72 16 119/78 (92) 98 Room Air 08/18/17 23:35 70 16 111/87 (95) 98 Room Air 08/18/17 22:45 85 23 101/74 97 Nasal Cannula 2.0 08/18/17 22:40 84 21 110/70 97 Nasal Cannula 2.0 08/18/17 22:35 80 15 104/67 98 Nasal Cannula 2.0 08/18/17 22:30 83 15 139/73 98 Nasal Cannula 2.0 08/18/17 22:25 79 25 127/80 98 Nasal Cannula 2.0 08/18/17 22:23 83 25 121/95 99 Nasal Cannula 2.0 08/18/17 22:19 97 08/18/17 22:18 92 25 160/99 97 Nasal Cannula 2.0 08/18/17 22:17 98 Nasal Cannula 2.0 08/18/17 22:07 100 Room Air 08/18/17 22:07 100 Room Air 08/18/17 22:07 36.8 100 20 161/101 100 Room Air Physical Exam General Appearance: WD/WN, no apparent distress Eyes: normal inspection, PERRL, EOMI, sclerae normal ENT: normal ENT inspection, hearing grossly normal, pharynx normal Neck: supple, no adenopathy, thyroid normal, no JVD, no carotid bruits, trachea midline Respiratory/Chest: chest non-tender, lungs clear, normal breath sounds, no respiratory distress, no accessory muscle use Cardiovascular: regular rate, rhythm, no edema, no gallop, no JVD, no murmur Abdomen: normal bowel sounds, non tender, soft, no organomegaly, no pulsatile mass Extremities: normal range of motion, non-tender, normal inspection, no pedal edema, no calf tenderness, normal capillary refill, pelvis stable Neurologic/Psychiatric: transitional living specialist II-XII nml as tested, no motor/sensory deficits, alert, normal mood/affect, oriented x 3 Skin: normal color, warm/dry, no rash, + pertinent finding (right wrist cath area no obvious tender, pulse good capillary refill was normal, no color changes ) Lymphatic: no adenopathy Laboratory Results Last 24 Hours Test 08/18/17 22:15 08/18/17 22:23 08/18/17 22:25 08/18/17 23:10 White Blood Count 13.55 K/uL Red Blood Count 4.78 M/uL Hemoglobin 14.0 g/dL Hematocrit 39.6 % Mean Corpuscular Volume 82.8 fL Mean Corpuscular Hemoglobin 29.3 pg Mean Corpuscular Hemoglobin Concent 35.4 g/dl Platelet Count 271 K/uL Mean Platelet Volume 10.1 fL Neutrophils (%) (Auto) 71.0 % Lymphocytes (%) (Auto) 23.9 % Monocytes (%) (Auto) 3.9 % Eosinophils (%) (Auto) 0.7 % Basophils (%) (Auto) 0.2 % Neutrophils # (Auto) 9.61 K/uL Lymphocytes # (Auto) 3.24 K/uL Monocytes # (Auto) 0.53 K/uL Eosinophils # (Auto) 0.10 K/uL Basophils # (Auto) 0.03 K/uL RDW Standard Deviation 38.0 fL RDW Coefficient of Variation 12.7 % Immature Granulocyte % (Auto) 0.3 % Immature Granulocyte # (Auto) 0.04 K/uL Nucleated RBC Absolute Count (auto) 0.02 K/uL Nucleated Red Blood Cells % 0.1 % Prothrombin Time 10.0 SECONDS Prothromb Time International Ratio 0.9 Activated Partial Thromboplast Time 25.3 SECONDS Partial Thromboplastin Ratio 1.0 Sodium Level 133 mmol/L Potassium Level 3.9 mmol/L Chloride Level 96 mmol/L Carbon Dioxide Level 27 mmol/L Anion Gap 10.0 mmol/L 18.0 mmol/L Blood Urea Nitrogen 12 mg/dl Creatinine 0.95 mg/dl Est Creatinine Clear Calc Drug Dose 69.3 ml/min Estimated GFR () 82.1 Estimated GFR (Non- 70.8 BUN/Creatinine Ratio 12.7 Random Glucose 426 mg/dl Estimated Average Glucose 335 mg/dl Hemoglobin A1c 13.3 % Calcium Level 9.3 mg/dl Magnesium Level 2.0 mg/dl Total Bilirubin 0.2 mg/dl Direct Bilirubin < 0.1 mg/dl Aspartate Amino Transf (AST/SGOT) 8 U/L Alanine Aminotransferase (ALT/SGPT) 20 U/L Alkaline Phosphatase 149 U/L Total Creatine Kinase 64 U/L Creatine Kinase MB 1.2 ng/ml Creatine Kinase MB Ratio 1.9 Total Protein 8.4 gm/dl Albumin 3.7 gm/dl Lipase 159 U/L Beta-Hydroxybutyric Acid 6.68 mg/dL Thyroid Stimulating Hormone (TSH) 0.819 uIu/ml Bedside Troponin I 0.050 ng/ml Bedside Hemoglobin 15.0 g/dl Bedside Hematocrit 44 % Bedside Sodium 135 mEq/L Bedside Potassium 3.9 mEq/L Bedside Chloride 95 mEq/L Bedside Total CO2 28 mEq/l Bedside Blood Urea Nitrogen 12 mg/dl Bedside Creatinine 0.7 mg/dl Bedside Glucose (other) 421 mg/dl Bedside Ionized Calcium (Brian) 1.16 mmol/l Kaolin Activated Coagulation Time 235 SECONDS Test 08/19/17 00:13 08/19/17 02:33 08/19/17 03:35 08/19/17 04:30 Bedside Glucose 422 mg/dl 389 mg/dl 317 mg/dl 289 mg/dl Test 08/19/17 05:38 08/19/17 06:09 08/19/17 06:34 08/19/17 08:24 Bedside Glucose 255 mg/dl 209 mg/dl 144 mg/dl White Blood Count 14.85 K/uL Red Blood Count 4.34 M/uL Hemoglobin 12.5 g/dL Hematocrit 35.8 % Mean Corpuscular Volume 82.5 fL Mean Corpuscular Hemoglobin 28.8 pg Mean Corpuscular Hemoglobin Concent 34.9 g/dl Platelet Count 233 K/uL Mean Platelet Volume 9.9 fL Neutrophils (%) (Auto) 83.4 % Lymphocytes (%) (Auto) 12.9 % Monocytes (%) (Auto) 3.3 % Eosinophils (%) (Auto) 0.0 % Basophils (%) (Auto) 0.1 % Neutrophils # (Auto) 12.39 K/uL Lymphocytes # (Auto) 1.92 K/uL Monocytes # (Auto) 0.49 K/uL Eosinophils # (Auto) 0.00 K/uL Basophils # (Auto) 0.01 K/uL RDW Standard Deviation 38.6 fL RDW Coefficient of Variation 12.7 % Immature Granulocyte % (Auto) 0.3 % Immature Granulocyte # (Auto) 0.04 K/uL Sodium Level 136 mmol/L Potassium Level 3.8 mmol/L Chloride Level 104 mmol/L Carbon Dioxide Level 24 mmol/L Anion Gap 8.0 mmol/L Blood Urea Nitrogen 12 mg/dl Creatinine 0.63 mg/dl Est Creatinine Clear Calc Drug Dose 105.2 ml/min Estimated GFR () 122.9 Estimated GFR (Non- 106.1 BUN/Creatinine Ratio 19.6 Random Glucose 227 mg/dl Calcium Level 8.2 mg/dl Phosphorus Level 3.2 mg/dl Magnesium Level 2.0 mg/dl Troponin I 84.400 ng/ml Triglycerides Level 175 mg/dl Cholesterol Level 233 mg/dl HDL Cholesterol 56 mg/dl LDL Cholesterol, Calculated 142 mg/dl VLDL Cholesterol, Calculated 35 mg/dl Cholesterol/HDL Ratio 4.2 Test 08/19/17 09:18 08/19/17 09:36 08/19/17 09:54 Bedside Glucose 112 mg/dl 137 mg/dl 149 mg/dl Assessment and Plan 47 y/o F Hx DM, HTN, smoker was admitted on 08/19/2017 because of acute STEMI Per report , patient had intermittent central CP throughout day. Initial EKG revealed ant elevations and a heart alert was called. LHC found proximal LAD occlusion, and was stented. STEMI - post single CR to prox LAD Continue on Brilinta, ASA, Statin, full-dose Heparin per cardio Uncontrolled DM with hyperglycemia without DKA., On insulin drip and diabetic education, possible home with rosana HTN - cont B migel - Statin Full code - Full dose Heparin Discussed with patient and family about condition and care plan answer all the questions Continued [facility] stay due to: multiple IV medications needed Discharge planning: home
[2017-08-19] MEDS: LISINOPRIL 5 MG TAB PO SCH (12:09)
--- NOTE | 2017-08-19 14:25 | NUR ---
DIABETES Pt identified for elevated BG > 300mg/dl via BG report and elevated A1c > 7%. Consult also received for diabetes education. BG 426 on admit. Insulin drip was initiated. A1c 13.3% (eAG 335). Current Meds: Lantus 10units BID (30units was given last PM) and Novolog 1:7 plus CF:20 with BG goal of 140-180. Insulin drip continues to infuse- infusing @ 1.4units/hr. BG values trended down slowly overnight. BG values [phone] today. Please see [facility]: Inpatient Teaching Record (note pad icon) for additional information. Addendum: 08/19/17 at [address] Amended: Links added.
--- NOTE | 2017-08-19 14:54 | NUR ---
Pastoral Care, initial visit with pt and several family members. Pt has no taoism affiliation. Pt adjusting to diagnosis, expresses gratitude for progress, says, "I still have a long way to go." I introduced our service, offered spiritual and emotional support, and assured her of my continuing availability.
[2017-08-19] MEDS ORDERED: [UNRECOGNIZED DRUG - REMARK] ONE (15:00)
--- NOTE | 2017-08-19 15:30 | NUR ---
A: PT RESTING IN BED. PT ASSESSMENT CHARTED. PT IN NO DISTRESS. PT NO COMPLAINTS. PT IN NO DISTRESS. INSULIN DRIP D/C AT 1500. WILL CONTINUE TO MONITOR.
--- NOTE | 2017-08-19 17:10 | NUR ---
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 Delong I phone the [facility] ([phone]) to inquire about copay cost of Lantus Solostar Pen and Novolog Aspart Insulin Pen. The pharmacist runs "dummy scripts" and tells me the copay for Lantus Solostar 30 day supply is $1 and the Novolog Insulin Pen 30 day supply is also $1.
--- NOTE | 2017-08-19 17:55 | NUR ---
A; PT ASSESSMENT CHARTED. PT IN NO DISTRESS. PT NO COMPLAINTS. PT DENIES PAIN. PT DENIES SOB.
--- NOTE | 2017-08-19 20:00 | NUR ---
PT ASSESSMENT COMPLETE. SEE EMR FOR DETAILS. PT RESTING IN BED. VSS. PT DENIES PAIN/SOB. DOES C/O OF STOMACH FEELING "UNCOMFORTABLE", BUT DENIES NAUSEA, NO PAIN NOTED WITH PALPATION. DRESSING TO RIGHT WRIST CATH SITE DRY AND INTACT. PULSES PALPABLE. PT EDUCATION PROVIDED ON DIABETES. PT ABLE TO STATE NORMAL BLOOD SUGARS AND WHAT TO DO FOR LOW AND HIGH BLOOD GLUCOSE LEVELS. PT ALSO ADMINISTERED OWN LANTUS. PT CARE PROVIDED. CALL ROSE WITHIN REACH. WILL CONTINUE TO MONITOR.
[2017-08-19] MEDS: DOCUSATE SODIUM 100 MG CAP PO SCH (21:30)
--- NOTE | 2017-08-19 22:00 | NUR ---
PT ASSESSMENT COMPLETES. SEE EMR FOR DETAILS. PT RESTING IN BED. PT CARE PROVIDED. VSS. CALL ROSE WITHIN REACH. WILL CONTINUE TO MONITOR.
[2017-08-20] VITALS (29 sets, daily range): BP systolic 73–107; BP diastolic 47–73; PULSE 54–96; TEMP 36.6–36.9; O2SAT 95–99; BMI 29.1
--- NOTE | 2017-08-20 00:01 | NUR ---
PT ASSESSMENT COMPLETE. SEE EMR FOR DETAILS. PT RESTING IN BED. VSS. OFFERS NO COMPLAINTS. NO S/S OF DISTRESS NOTED. CALL ROSE WITHIN REACH. WILL CONTINUE TO MONITOR
--- NOTE | 2017-08-20 02:12 | NUR ---
WHILE ROUNDING ON PT, SHE STATED THAT SHE WAS HAVING CHEST PRESSURE. SHE DENIES PAIN. SHE ALSO C/O FEELING "A LITTLE SOB". EKG OBTAINED, SUE FLETCHER AWARE. STAT REPEAT TROPONIN ORDERED. WILL CONTINUE TO MONITOR.
[2017-08-20 03:05] LABS: BASO % 0.1 %; BASO ABS # 0.01 K/uL (0-0.2); EOS % 0.9 %; EOS ABS # 0.11 K/uL (0-0.5); HEMATOCRIT 34.1 % (37-47); HEMOGLOBIN 11.7 g/dL (12.0-16.0); IG# 0.03 K/uL (0.00-0.02); LYMPH % 26.9 %; LYMPH ABS # 3.23 K/uL (1.2-3.4); MEAN CELL VOLUME 84.2 fL (80-100); MEAN CORPUSCULAR HEMOGLOBIN 28.9 pg (25-34); MEAN CORPUSCULAR HGB CONC 34.3 g/dl (32-36); MEAN PLATELET VOLUME 9.8 fL (7.4-10.4); MONO % 6.7 %; NEUT % 65.1 %; NEUT ABS # 7.81 K/uL (1.4-6.5); PLATELET COUNT 208 K/uL (130-400); RED CELL DISTRIBUTION WIDTH CV 13.2 % (11.5-14.5); WHITE BLOOD COUNT 11.99 K/uL (4.8-10.8)
[2017-08-20 03:40] LABS: CALCIUM 8.1 mg/dl (8.5-10.1); CREATININE 0.63 mg/dl (0.60-1.20); POTASSIUM 3.3 mmol/L (3.5-5.1)
[2017-08-20 04:06] LABS: PHOSPHORUS 3.8 mg/dl (2.5-4.9)
--- NOTE | 2017-08-20 04:12 | NUR ---
PT ASSESSMENT COMPLETE. SEE EMR FOR DETAILS. PT RESTING IN BED. VSS. PT STATES THAT CHEST PRESSURE "FEELS BETTER". POTASSIUM LEVEL LOW, REPLACED WITH PO PER ORDERS. TROPONIN TRENDING DOWN. CALL ROSE WITHIN REACH. WILL CONTINUE TO MONITOR.
[2017-08-20] MEDS: POTASSIUM CHLORIDE 10 MEQ TABCR PO SCH ×3 (05:59→13:54)
--- NOTE | 2017-08-20 06:09 | NUR ---
PT RESTING IN BED. VSS. DENIES PAIN. C/O FEELING "TIRED" AND STATES SHE JUST WANTS TO SLEEP. REFUSED AM CARE AT THIS TIME. CALL ROSE WITHIN REACH. WILL CONTINUE TO MONITOR.
--- NOTE | 2017-08-20 07:30 | NUR ---
A: PT RESTING IN BED. PT ASSESSMENT CHARTED. PT IN NO DISTRESS. PT NO COMPLAINTS. PT DENIES PAIN. PT REPORTS FATIGUE AND GENERALIZED WEAKNESS. LOW BP NOTED. WILL CONTINUE TO MONITOR.
[2017-08-20] MEDS: METOPROLOL TARTRATE 25 MG TAB PO SCH ×3 (07:59→21:01)
[2017-08-20] MEDS: LISINOPRIL 5 MG TAB PO SCH (07:59)
[2017-08-20] MEDS: NICOTINE 7 MG/24 HR TDSY TD SCH (07:59)
[2017-08-20] MEDS: ASPIRIN 81 MG ECTAB PO SCH (08:01)
[2017-08-20] MEDS: ATORVASTATIN 40 MG TAB PO SCH (08:01)
[2017-08-20] MEDS: TICAGRELOR 90 MG TAB PO SCH ×2 (08:02→21:02)
[2017-08-20] MEDS: INSULIN ASPART 100 UNITS/ML 3 ML PEN SC SCH ×4 (08:06→21:00)
[2017-08-20] MEDS: INSULIN GLARGINE SOLOSTAR 100 UNITS/ML 3 ML PEN SC SCH ×2 (08:07→21:00)
[2017-08-20] MEDS: DOCUSATE SODIUM 100 MG CAP PO SCH ×2 (08:34→21:01)
--- NOTE | 2017-08-20 09:00 | NUR ---
A: UPDATE TO DR. MONTES. ADVSIED OF CP PRESSURE LAST NIGHT. ADVISED OF LOW BP.
--- NOTE | 2017-08-20 09:30 | NUR ---
A: PT OOB TO BATHROOM AND TO CHAIR. PT NO COMPLAINTS. PT DENIES PAIN. PT DENIES CP/PRESSURE. PT BP IN LEFT ARM LOWER THAN RIGHT ARM. VS CHARTED.
--- NOTE | 2017-08-20 10:35 | Critical Care Progress Note ---
Critical Care Progress Note Date of Service Aug 20, 2017. ICU Day ICU Day Number: [address] Tay Subjective Patient feeling well this morning. Describes intermittent chest discomfort overnight, associated with SOB, but no diaphoresis, nausea/vomiting, palpitations, and discomfort was not similar to pain prior to admission. Symptoms subsided naturally. Patient complaining also of pressure in abdomen present since admission without change. She had nausea but this resolved with anti-emetic. She still has diminished appetite, but is otherwise tolerating diet slowly. She has not had a bowel movement but denies feeling constipated. She is voiding without issue. With regards to her blood pressure, she denies feeling dizzy or lightheaded and but states she has significant fatigue. She was out of bed yesterday, but has not been out of bed today. Management plans were discussed with patient. Objective GENERAL: alert, well appearing, sitting in bed, no acute distress, non-toxic HEAD: NC/AT EYES: Normal sclera and conjunctiva OROPHARYNX: No exudate, no erythema. Lips, buccal mucosa, and tongue normal and mucous membranes are moist NECK: Supple, no adenopathy, non-tender LUNGS: Clear to auscultation. Normal chest wall mechanics, good air entry. No crepitations, crackles, or wheezes. No reproducible chest wall tenderness. HEART: RRR, S1 and S2 normal, no murmurs appreciated ABDOMEN: Soft, non-tender, not distended, normo-active bowel sounds, no masses, no rebound or guarding. SKIN: Warm, pink, dry. No erythema, rashes, or bruising. EXTREMITIES: Grossly normal. Moving all 4 limbs, strength 5/5. No pitting edema. Calves supple. NEURO: Alert, Ox3. No focal deficits. Normal speech. PSYCH: Mood and affect appropriate. Current SOFA Score SOFA Score Response (Comments) Value Platelets (x10) > 150 0 Bilirubin (mg/dL) < 1.2 0 Iuka Coma Score 15 0 Level of Hypotension MAP less than 70 1 Creatinine (mg/dL) < 1.2 0 Total 1 Assessment & Plan Reason Critically Ill: Patient is an 47-year-old female who is transferred to the ICU s/p 1 CR to the proximal LAD for STEMI. PLAN: Neuro: * Pain free currently; monitor for pain level and acute changes * A & Ox3, neurologically intact Resp: * Supplemental O2 as needed, saturating well on room air * Monitor on telemetry * 15 yr hx of smoking: smoking cessation ordered, NicoDerm patch ordered if needed CV: * Acute STEMI s/p 1xDES to proximal LAD * Echo shows LVEF 40-45% with severe hypokinesis involving mid anterior, anteroseptum and septal thornton. Apical akinesis. No significant valvular pathology * Troponin continuing to trend downwards * Repeat EKG with chest pain in in AM * ECHO ordered * Continue post KS cardiac medications * Atorvastatin, Metoprolol and ASA. * Continue antiplatelet therapy * Continue Brilinta now; transition prior to discharge * Hypotension * Lisinopril held today. Continue to monitor * Monitor on Telemetry GI/Nutrition: * AHA/ DM 2 diet * Hatch of pantoprazole 40mg daily * Zofran PRN nausea Fluids/Renal: * IVF discontinued * BUN/Cr: 11/0.63 * K+ low - replete and recheck BMP in PM * Monitor urine output ID: * WBC 11.55 * Afebrile, no sign of infection. * Monitor fever curve Heme: * H&H stable, mild leukocytosis, Coags WNL * Trend CBC Endocrine: * Patient not on any diabetic medication at home. HbA1c 13.3. * Accu-Checks per protocol * Continue Lantus 10mg BID with Novolog coverage * Continue diabetic education * TSH WNL VTE PPx Resident Physician Supervision Note: I was present with Dr. Hall during the history and exam. I discussed the case with the resident and agree with the findings and plan as documented in the note. Any exceptions or clarifications are listed here: [None] Documented By: Brady Tay Consults & Procedures Consultants: Cardiology Body Builder Procedures: Cardiac catheterization 08/18 Data Medications: Current Inpatient Medications Medications (Trade) Dose Ordered Sig/Russ Route Start Time Stop Time Status Last Admin Dose Admin Nitroglycerin (Nitrostat Tab) 0.4 mg UD PRN SL 08/18/17 23:45 09/17/17 23:44 Ondansetron HCl (Zofran Inj) 4 mg Q6H PRN IV 08/18/17 23:45 09/17/17 23:44 08/19/17 09:11 4 MG Aspirin (Ecotrin Tab) 81 mg QAM PO 08/19/17 09:00 09/18/17 08:59 11/8/17 08:01 81 MG Atorvastatin Calcium (Lipitor Tab) 80 mg QAM PO 08/19/17 09:00 09/18/17 08:59 08/20/17 08:01 80 MG Metoprolol Tartrate (Lopressor Tab) 12.5 mg Q12 PO 08/19/17 09:00 09/18/17 08:59 08/20/17 08:36 12.5 MG Lisinopril (Zestril Tab) 5 mg QAM PO 08/19/17 09:00 09/18/17 08:59 08/19/17 12:09 5 MG Acetaminophen (Tylenol Tab) 650 mg Q4H PRN PO 08/18/17 23:45 09/17/17 23:44 Ticagrelor (Brilinta Tab) 90 mg BID PO 08/19/17 09:00 09/18/17 08:59 08/20/17 08:02 90 MG Glucose (Glucose 40% Gel) 15-30 GRAMS 15 GRAMS... UD PRN PO 08/19/17 00:30 09/18/17 00:29 Glucose (Glucose Chew Tab) 4-8 Tablets 4 Tabl... UD PRN PO 08/19/17 00:30 09/18/17 00:29 Dextrose (Dextrose 50% 50ML Syringe) 25-50ML OF 50% DW IV FOR... UD PRN IV 08/19/17 00:30 09/18/17 00:29 Glucagon (Glucagon Inj) 1 mg UD PRN SQ 08/19/17 00:30 09/18/17 00:29 Nicotine (Nicoderm Cq 7 Mg Patch) 1 patch QAM TD 08/19/17 09:00 09/18/17 08:59 Miscellaneous (Remove Nicoderm Patch) 1 ea HS N/A 08/19/17 21:00 09/18/17 20:59 Insulin Glargine (Lantus Solostar Pen) 10 units BID SC 08/19/17 09:00 09/18/17 08:59 08/20/17 08:07 10 UNITS Insulin Aspart (novoLOG ASPART) SLIDING SCALE G... ACHS SC 08/19/17 16:00 09/18/17 15:59 08/20/17 08:06 6 UNITS Docusate Sodium (coLACE CAP) 100 mg BID PO 08/19/17 21:00 09/18/17 20:59 08/20/17 08:34 100 MG Potassium Chloride (Klor-Con M10) 20 meq Q4H PO 08/20/17 05:45 08/20/17 13:46 08/20/17 08:36 20 MEQ Vital Signs: Date Time Temp Pulse Resp B/P (MAP) Pulse Ox O2 Delivery O2 Flow Rate FiO2 08/20/17 07:25 36.6 90 16 88/53 (65) 97 Room Air 2.0 08/20/17 07:25 Room Air 2.0 08/20/17 06:01 76 16 85/56 (66) 97 Room Air 08/20/17 05:00 77 16 99/52 (68) 96 08/20/17 04:01 36.7 71 15 82/49 (60) 96 Room Air 08/20/17 04:00 Room Air 08/20/17 03:01 87 21 89/58 (68) 98 Room Air 08/20/17 02:12 83 20 86/53 (64) 99 08/20/17 02:00 77 15 73/49 (57) 95 08/20/17 01:00 74 16 75/47 (56) 97 08/20/17 00:01 36.7 75 17 83/59 (67) 96 Room Air 08/19/17 23:59 Room Air 08/19/17 23:01 73 16 85/56 (66) 96 Room Air 08/19/17 21:01 85 17 107/55 (72) 96 Room Air 08/19/17 20:01 36.8 88 13 110/58 (75) 97 Room Air 08/19/17 20:00 Room Air 08/19/17 17:54 36.7 89 18 92/65 (74) 98 Room Air 08/19/17 17:01 89 20 92/65 (71) 99 08/19/17 17:00 86 17 99 08/19/17 16:01 67 15 80/55 (64) 96 08/19/17 16:00 67 15 95 08/19/17 15:22 Nasal Cannula 2.0 08/19/17 15:20 36.7 71 18 91/62 (72) 98 Nasal Cannula 2.0 08/19/17 15:01 77 19 97/62 (65) 97 08/19/17 15:01 77 19 97/62 (65) 97 08/19/17 15:00 75 19 98 08/19/17 15:00 75 19 98 08/19/17 14:00 81 17 112/72 (78) 98 08/19/17 14:00 36.7 71 16 112/72 (85) 98 Nasal Cannula 2.0 08/19/17 13:00 88 21 107/67 (89) 99 08/19/17 12:01 85 19 109/65 (83) 98 08/19/17 12:00 81 16 98 08/19/17 11:41 90 24 117/74 (79) 99 08/19/17 11:23 80 16 111/74 (78) 97 08/19/17 11:15 36.5 81 16 104/68 (80) 98 Nasal Cannula 2.0 08/19/17 11:15 Nasal Cannula 2.0 08/19/17 11:02 98 17 63/22 (26) 97 08/19/17 11:00 80 17 97 08/19/17 10:57 84 17 104/68 (73) 98 Laboratory Results: Last 24 Hours Test 08/19/17 11:00 08/19/17 11:53 08/19/17 12:49 08/19/17 13:48 Bedside Glucose 166 mg/dl 153 mg/dl 218 mg/dl Troponin I 85.700 ng/ml Test 08/19/17 13:55 08/19/17 14:54 08/19/17 16:16 08/19/17 18:00 Bedside Glucose 271 mg/dl 224 mg/dl 188 mg/dl Urine Color YELLOW Urine Appearance CLEAR Urine pH 5.5 Urine Specific [place] 1.025 Urine Protein NEG Urine Glucose (UA) 3+ Urine Ketones NEG Urine Occult Blood NEG Urine Nitrite NEG Urine Bilirubin NEG Urine Urobilinogen NEG Urine Leukocyte Esterase NEG Test 08/19/17 20:01 08/19/17 21:58 08/20/17 02:50 08/20/17 06:25 Bedside Glucose 164 mg/dl 106 mg/dl Troponin I 55.600 ng/ml 43.600 ng/ml White Blood Count 11.99 K/uL Red Blood Count 4.05 M/uL Hemoglobin 11.7 g/dL Hematocrit 34.1 % Mean Corpuscular Volume 84.2 fL Mean Corpuscular Hemoglobin 28.9 pg Mean Corpuscular Hemoglobin Concent 34.3 g/dl Platelet Count 208 K/uL Mean Platelet Volume 9.8 fL Neutrophils (%) (Auto) 65.1 % Lymphocytes (%) (Auto) 26.9 % Monocytes (%) (Auto) 6.7 % Eosinophils (%) (Auto) 0.9 % Basophils (%) (Auto) 0.1 % Neutrophils # (Auto) 7.81 K/uL Lymphocytes # (Auto) 3.23 K/uL Monocytes # (Auto) 0.80 K/uL Eosinophils # (Auto) 0.11 K/uL Basophils # (Auto) 0.01 K/uL RDW Standard Deviation 40.0 fL RDW Coefficient of Variation 13.2 % Immature Granulocyte % (Auto) 0.3 % Immature Granulocyte # (Auto) 0.03 K/uL Sodium Level 141 mmol/L Potassium Level 3.3 mmol/L Chloride Level 106 mmol/L Carbon Dioxide Level 28 mmol/L Anion Gap 7.0 mmol/L Blood Urea Nitrogen 11 mg/dl Creatinine 0.63 mg/dl Est Creatinine Clear Calc Drug Dose 105.2 ml/min Estimated GFR () 122.9 Estimated GFR (Non- 106.1 BUN/Creatinine Ratio 16.9 Random Glucose 102 mg/dl Calcium Level 8.1 mg/dl Phosphorus Level 3.8 mg/dl Magnesium Level 2.0 mg/dl Resident Tracking Resident Involvement: Resident Care Provided Care Provided: Adult [facility] Medicine
[2017-08-20] MEDS ORDERED: PANTOprazole SOD 40 MG TAB PO ONE (10:44)
--- NOTE | 2017-08-20 10:52 | NUR ---
DIABETES: Pt seen on f/u for uncontrolled DM. Pt wants to be scheduled for endo appt in [facility] & CDE obtained a Dec appt w/ ADRIAN for her. See DM network & DM discharge interventions for details. Addendum: 08/20/17 at 1054 by Katie Guzman RN Amended: Links added.
--- NOTE | 2017-08-20 11:04 | NUR ---
A: PT RESTING IN CHAIR. PT NO COMPLAINTS. PT REPORTED EARLIER, BRIEF VERTIGO WHEN STANDING. PT DENIES VERTIOG AT REST IN SEATED POSITION. PT ASSESSMENT CHARTED. WILL CONTINUE TO MONITOR.
--- NOTE | 2017-08-20 11:11 | NUR ---
DIABETES discharge suggestions: Click on icon for details. Addendum: 08/20/17 at 1112 by Katie Guzman RN Amended: Links added.
--- NOTE | 2017-08-20 13:34 | NUR ---
A: PT SLEEPING IN BED. PT NO COMPLAINTS. PT IN NO DISTRESS. PT DENIES PAIN. PT DENIES SOB. PT ASSESSMENT UNCHANGED. AWAITING TELE BD TO OPEN.
[2017-08-20 14:12] LABS: CALCIUM 8.6 mg/dl (8.5-10.1); CREATININE 0.88 mg/dl (0.60-1.20); POTASSIUM 4.1 mmol/L (3.5-5.1)
--- NOTE | 2017-08-20 15:00 | NUR ---
Patient assessment completed at this time. Patient resting comfortably in bed without complaints of pain. See EMR for complete assessment details. Sinus rhythm on the monitor. No chest pain. Lungs clear. Shortness of breath. Right radial cath site is covered with a 2x2 and Tegaderm. Dressing is dry and intact with no signs of a hematoma or ecchymosis. Voids, but verbalizes that urine is dark and has a foul odor to it. Right Antecubital IV site. Bed in low position. 2 side rails up. Call zhao within reach. Patient agrees to ring for assistance. Continue to monitor patient.
--- NOTE | 2017-08-20 16:00 | NUR ---
Patient up to bathroom at this time. Patient voided and is currently sitting in bedside chair for supper. Continue to monitor patient.
--- NOTE | 2017-08-20 16:05 | Hospitalist Progress Note ---
Hospitalist Progress Note Date of Service Aug 20, 2017. (Shereen Hurt CRNP) Subjective Pt evaluation today including: conversation w/ patient, physical exam, chart review, lab review, review of inpatient medication list Voiding: no voiding problems Ms. Cotter is feeling better this morning, she did have some chest pain over the night. She is not short of breath and has had no further chest pain today. She is eating well. She feels a pressure in her abdomen but attributes this to muscle fatigue from all of the vomiting around the PA. ROS Constitutional: no chills, aches, sweats or fever Respiratory: no sob,cough, sputum, or wheezing Cardiac: no chest pain, palpitations, edema, orthopnea or lightheadedness GI: no abdominal pain, nausea, vomiting, diarrhea or constipation : no dysuria or hesitancy Extremities: no joint pain or weakness Skin: no rash (Shereen Hurt CRNP) Medications Medications Administered Medications (Trade) Dose Ordered Sig/Russ Route Start Time Stop Time Status Last Admin Dose Admin Sodium Chloride 1,000 ml @ 999 mls/hr Q1H1M STAT IV 08/18/17 22:14 08/18/17 23:14 DC 08/18/17 22:14 999 MLS/HR Morphine Sulfate (MoRPHine SULFATE INJ) 4 mg STK-MED ONCE .ROUTE 08/18/17 22:14 08/18/17 22:15 DC 08/18/17 22:14 4 MG Aspirin (Aspirin Chew) 324 mg STK-MED ONCE .ROUTE 08/18/17 22:14 08/18/17 22:15 DC 08/18/17 22:14 324 MG Nitroglycerin (Nitrostat Tab) 1.2 mg STK-MED ONCE .ROUTE 08/18/17 22:15 08/18/17 22:16 DC 08/18/17 22:15 1.2 MG Nitroglycerin (Nitrostat Tab) 0.4 mg PRN PRN SL 08/18/17 22:15 08/19/17 00:17 DC 08/18/17 22:27 0.4 MG Ondansetron HCl (Zofran Inj) 4 mg STK-MED ONCE .ROUTE 08/18/17 22:19 08/18/17 22:20 DC 08/18/17 22:23 4 MG Miscellaneous Information (Nursing Verbal Med Order) 1 ea ONE ONCE N/A 08/18/17 22:30 08/18/17 22:31 DC 08/18/17 22:28 1 EA Heparin Sodium (Porcine) (Heparin Iv Bolus) 10,000 unit STK-MED ONCE .ROUTE 08/18/17 22:34 08/18/17 22:35 DC 08/18/17 23:23 10,000 UNIT Ondansetron HCl (Zofran Inj) 4 mg STK-MED ONCE .ROUTE 08/18/17 22:34 08/18/17 22:35 DC 08/18/17 22:36 4 MG Midazolam HCl (Versed Inj) 2 mg STK-MED ONCE .ROUTE 08/18/17 22:34 08/18/17 22:35 DC 08/18/17 22:34 1 MG Fentanyl Citrate (Fentanyl Inj) 100 mcg STK-MED ONCE .ROUTE 08/18/17 22:34 08/18/17 22:35 DC 08/18/17 22:34 25 MCG Ticagrelor (Brilinta Tab) 180 mg STK-MED ONCE PO 08/18/17 23:34 08/18/17 23:35 DC 08/18/17 23:34 180 MG Sodium Chloride 1,000 ml @ 125 mls/hr Q8H IV 08/18/17 23:45 08/19/17 07:44 DC 08/19/17 01:08 125 MLS/HR Ondansetron HCl (Zofran Inj) 4 mg Q6H PRN IV 08/18/17 23:45 09/17/17 23:44 08/19/17 09:11 4 MG Aspirin (Ecotrin Tab) 81 mg QAM PO 08/19/17 09:00 09/18/17 08:59 08/20/17 08:01 81 MG Atorvastatin Calcium (Lipitor Tab) 80 mg QAM PO 08/19/17 09:00 09/18/17 08:59 08/20/17 08:01 80 MG Metoprolol Tartrate (Lopressor Tab) 12.5 mg Q12 PO 08/19/17 09:00 09/18/17 08:59 08/20/17 08:36 12.5 MG Lisinopril (Zestril Tab) 5 mg QAM PO 08/19/17 09:00 12/7/17 08:59 08/19/17 12:09 5 MG Ticagrelor (Brilinta Tab) 90 mg BID PO 08/19/17 09:00 09/18/17 08:59 08/20/17 08:02 90 MG Insulin Glargine (Lantus Per Unit) 30 units ONE STAT AL 08/19/17 00:15 08/19/17 00:16 DC 08/19/17 01:09 30 UNITS Insulin Human Regular (Insulin IV Infusion Protocol) 1 ea NOW STAT N/A 08/19/17 00:01 08/19/17 01:19 DC 08/19/17 00:01 1 EA Insulin Aspart (novoLOG ASPART) SLIDING SCALE [facility] 08/19/17 09:00 08/19/17 15:00 DC 08/19/17 12:14 3 UNITS Miscellaneous (Insulin Protocol Goal Range (Other)) 1 ea ONE ONCE N/A 08/19/17 00:15 08/19/17 01:19 DC 08/19/17 00:15 1 EA Miscellaneous (Insulin Protocol Moderate Stress Level) 1 ea ONE ONCE N/A 08/19/17 00:15 08/19/17 01:19 DC 08/19/17 00:15 1 EA Insulin Human Regular (NovoLIN R BOLUS FROM BAG) 2 unit ONE ONCE IV 08/19/17 01:15 08/19/17 01:16 DC 08/19/17 01:15 2 UNIT Insulin Human Regular 250 units/ Sodium Chloride 252.5 ml @ 0 mls/hr Q24H IV 08/19/17 01:30 08/19/17 15:00 DC 08/19/17 01:53 1.8 MLS/HR Insulin Glargine (Lantus Solostar Pen) 10 units BID AL 08/19/17 09:00 09/18/17 08:59 08/20/17 08:07 10 UNITS Miscellaneous (Stop Order) 1 ea TODAY@1500 ONCE N/A 08/19/17 15:00 08/19/17 15:01 DC 08/19/17 14:58 1 EA Insulin Aspart (novoLOG ASPART) SLIDING SCALE G... ACHS AL 08/19/17 16:00 09/18/17 15:59 08/20/17 12:33 11 UNITS Docusate Sodium (coLACE CAP) 100 mg BID PO 08/19/17 21:00 09/18/17 20:59 08/20/17 08:34 100 MG Potassium Chloride (Klor-Con M10) 20 meq Q4H PO 08/20/17 05:45 08/20/17 13:46 DC 08/20/17 13:54 20 MEQ Pantoprazole Sodium (Protonix Tab) 40 mg 1044 ONCE PO 08/20/17 10:44 08/20/17 10:48 DC 08/20/17 12:15 40 MG (Shereen Hurt, ADRIAN) Objective Vital Signs Date Time Temp Pulse Resp B/P (MAP) Pulse Ox O2 Delivery O2 Flow Rate FiO2 08/20/17 13:33 36.7 89 16 83/58 (66) 97 Room Air 08/20/17 11:00 36.7 86 16 87/53 (64) 97 Room Air 08/20/17 11:00 Room Air 08/20/17 11:00 83 18 97/54 (68) 97 08/20/17 10:30 88 27 87/53 (64) 96 08/20/17 10:00 91 24 84/53 (63) 96 08/20/17 09:43 96 12 83/48 (60) 99 08/20/17 09:41 54 18 95/61 (72) 08/20/17 09:01 96 23 91/73 (79) 98 08/20/17 09:00 93 16 96 08/20/17 08:31 84 17 104/51 (68) 96 08/20/17 08:30 83 17 96 08/20/17 08:00 Room Air 08/20/17 08:00 89 15 87/56 (66) 96 08/20/17 07:31 87 19 87/55 (66) 97 08/20/17 07:30 88 21 96 08/20/17 07:25 36.6 90 16 88/53 (65) 97 Room Air 2.0 08/20/17 07:25 Room Air 2.0 08/20/17 07:14 86 15 88/53 (65) 97 08/20/17 07:13 86 22 89/52 (64) 97 08/20/17 07:11 94 20 /51 (34) 98 08/20/17 07:00 79 18 93/58 (70) 96 08/20/17 06:01 76 16 85/56 (66) 97 Room Air 08/20/17 05:00 77 16 99/52 (68) 96 08/20/17 04:01 36.7 71 15 82/49 (60) 96 Room Air 08/20/17 04:00 Room Air 08/20/17 03:01 87 21 89/58 (68) 98 Room Air 08/20/17 02:12 83 20 86/53 (64) 99 08/20/17 02:00 77 15 73/49 (57) 95 08/20/17 01:00 74 16 75/47 (56) 97 08/20/17 00:01 36.7 75 17 83/59 (67) 96 Room Air 08/19/17 23:59 Room Air 08/19/17 23:01 73 16 85/56 (66) 96 Room Air 08/19/17 21:01 85 17 107/55 (72) 96 Room Air 08/19/17 20:01 36.8 88 13 110/58 (75) 97 Room Air 08/19/17 20:00 Room Air 08/19/17 17:54 36.7 89 18 92/65 (74) 98 Room Air 08/19/17 17:01 89 20 92/65 (71) 99 08/19/17 17:00 86 17 99 08/19/17 16:01 67 15 80/55 (64) 96 08/19/17 16:00 67 15 95 (Shereen Hurt CRNP) Physical Exam Notes: General: no distress Eyes: normal inspection, PERLL Respiratory: chest non tender, clear to auscultation, normal breath sounds, no respiratory distress, no accessory muscle use Cardiac: regular rate and rhythm, no rub or gallop, no murmur, no edema, no jvd GI/: active bowel sounds, no abd pain or tenderness, soft, non distended Extremities: normal range of motion, normal strength, non tender Neuro/Psych: alert and oriented x 3, normal mood and affect Skin: normal color, dry (Shereen Hurt CRNP) Laboratory Results Last 24 Hours Test 08/19/17 16:16 08/19/17 18:00 08/19/17 20:01 08/19/17 21:58 Bedside Glucose 188 mg/dl 164 mg/dl Urine Color YELLOW Urine Appearance CLEAR Urine pH 5.5 Urine Specific [place] 1.025 Urine Protein NEG Urine Glucose (UA) 3+ Urine Ketones NEG Urine Occult Blood NEG Urine Nitrite NEG Urine Bilirubin NEG Urine Urobilinogen NEG Urine Leukocyte Esterase NEG Troponin I 55.600 ng/ml Test 08/20/17 02:50 08/20/17 06:25 08/20/17 10:50 08/20/17 13:41 White Blood Count 11.99 K/uL Red Blood Count 4.05 M/uL Hemoglobin 11.7 g/dL Hematocrit 34.1 % Mean Corpuscular Volume 84.2 fL Mean Corpuscular Hemoglobin 28.9 pg Mean Corpuscular Hemoglobin Concent 34.3 g/dl Platelet Count 208 K/uL Mean Platelet Volume 9.8 fL Neutrophils (%) (Auto) 65.1 % Lymphocytes (%) (Auto) 26.9 % Monocytes (%) (Auto) 6.7 % Eosinophils (%) (Auto) 0.9 % Basophils (%) (Auto) 0.1 % Neutrophils # (Auto) 7.81 K/uL Lymphocytes # (Auto) 3.23 K/uL Monocytes # (Auto) 0.80 K/uL Eosinophils # (Auto) 0.11 K/uL Basophils # (Auto) 0.01 K/uL RDW Standard Deviation 40.0 fL RDW Coefficient of Variation 13.2 % Immature Granulocyte % (Auto) 0.3 % Immature Granulocyte # (Auto) 0.03 K/uL Sodium Level 141 mmol/L 138 mmol/L Potassium Level 3.3 mmol/L 4.1 mmol/L Chloride Level 106 mmol/L 104 mmol/L Carbon Dioxide Level 28 mmol/L 28 mmol/L Anion Gap 7.0 mmol/L 6.0 mmol/L Blood Urea Nitrogen 11 mg/dl 17 mg/dl Creatinine 0.63 mg/dl 0.88 mg/dl Est Creatinine Clear Calc Drug Dose 105.2 ml/min 75.5 ml/min Estimated GFR () 122.9 90.0 Estimated GFR (Non- 106.1 77.7 BUN/Creatinine Ratio 16.9 18.8 Random Glucose 102 mg/dl 159 mg/dl Calcium Level 8.1 mg/dl 8.6 mg/dl Phosphorus Level 3.8 mg/dl Magnesium Level 2.0 mg/dl Troponin I 43.600 ng/ml 26.400 ng/ml Bedside Glucose 106 mg/dl 218 mg/dl (Shereen Hurt CRNP) Assessment and Plan 47 y/o F Hx DM, HTN, smoker here for emergent catheterization for anterior STEMI STEMI/ HTN - post single CR to prox LAD - Placed on Brilinta, ASA, Statin, - she will need to switch to plavix for discharge per cardiology - Troponins peaked at 85, trending back down - metoprolol, NELSON DM - hyperglycemia without DKA - A1c 13.3 - insulin drip off - sliding scale and lantus - diabetes education Current smoker - nicotine patch - smoking cessation education Full code DVT prophylaxis - Aspirin (Shereen Hurt CRNP) HADOOP CONSULTANT Physician Supervision Note: I interviewed and examined the patient. Discussed with Shereen Hurt HADOOP CONSULTANT and agree with findings and plan as documented in the note. Any exceptions or clarifications are listed here: None 47year-old avid female presented with ST elevation PA did proceed to cardiac catheterization where she'll drug-eluting stent applied her left anterior descending artery in early mornings of August 20 she had some chest pain has had none since Vitals are reviewed showing low blood pressure cardiac exam is regular lungs are clear extremity without edema ST elevated PA status post intervention will continue antiplatelet agents including Plavix at discharge beta migel NELSON inhibitor Diabetic care seems to be intact patient has good understanding of her diabetic care She has no arrhythmias overnight no further chest pain she'll likely be discharged home with close follow-up with outpatient providers Documented By: Trev Watson (Trev Watson M.D.)
--- NOTE | 2017-08-20 17:48 | NUR ---
Dr. parsons into see patient. No new orders.
--- NOTE | 2017-08-20 18:32 | Cardiology Follow-Up ---
Subjective Subjective Date of Service: Aug 20, 2017. Pt evaluation today including: conversation w/ patient, conversation w/ family , physical exam, chart review, lab review, review of studies, review of inpatient medication list Additional Details: Feeling well this evening. Denies chest pain. Mild abdominal fullness. Tolerating meals. Improved nausea. Tele reviewed -- no events Review of Systems Constitutional: No fever, No chills, No sweats, No weight loss, No weakness, No fatigue, No problem reported Eyes: No worsening of vision, No eye pain, No redness, No discharge, No diplopia ENT: No hearing loss, No unusual epistaxis, No nasal symptoms, No sore throat, No tinnitus, No dental problems, No trouble swallowing Respiratory: No cough, No sputum, No wheezing, No shortness of breath, No dyspnea on exertion, No dyspnea at rest, No hemoptysis Cardiac: No chest pain, No orthopnea, No PND, No edema, No claudication, No palpitations Abdomen: No pain, No nausea, No vomiting, No diarrhea, No constipation Musculoskeletal: No joint pain, No muscle pain, No swelling, No calf pain Female : No dysuria, No urinary frequency, No hematuria, No incontinence, No abnormal vaginal bleeding, No vaginal discharge Neurologic: No memory loss, No paralysis, No weakness, No numbness/tingling, No vertigo, No balance problems Psychiatric: No depression symptoms, No anhedonism, No anxiety, No insomnia, No substance abuse Heme: No abnormal bleeding/bruising, No clotting problems, No swollen lymph nodes, No night sweats Endo: No fatigue, No excessive thirst, No excessive urination Skin: No rash, No itch, No new/changing skin lesions, No color change, No bleeding Objective Vital Signs Last Vital Signs Documentation Date Time Temp Pulse Resp B/P (MAP) Pulse Ox O2 Delivery O2 Flow Rate FiO2 08/20/17 16:00 Room Air 08/20/17 15:10 36.8 94 19 99/63 (75) 98 08/20/17 07:25 2.0 Physical Exam: General Appearance: no apparent distress ENT: normal ENT inspection Neck: no JVD Respiratory/Chest: lungs clear, normal breath sounds Cardiovascular: regular rate, rhythm, no edema, no murmur Abdomen: normal bowel sounds, non tender, soft Extremities: normal inspection, no pedal edema, no calf tenderness, + pertinent finding (no right radial artery access site complications. ) Neurologic/Psychiatric: alert, normal mood/affect, oriented x 3 Skin: normal color, warm/dry, no rash, + pertinent finding (right wrist cath area no obvious tender, pulse good capillary refill was normal, no color changes ) Assessment and Plan 1. Anterior STEMI s/p PPCI with CR to proximal LAD 2. Residual small vessel CAD 3. Mild to moderate LV dysfunction. 4. Poorly controlled DM/hyperglycemia 5. Hypotension Remains chest pain free. Troponin peaked. Well perfused without congestion on exam. Blood sugars improved off insulin drip. -- Continue ASA/Ticagrelor --> will switch to plavix day of discharge. -- Continue current beta-migel -- Agree with holding NELSON for now. Will attempt to start as an outpatient if BP remains low. -- High-intensity statin -- medical management residual CAD From a cardiac standpoint if stable overnight possible discharge tomorrow. Continued [facility] stay due to: multiple IV medications needed Discharge planning: home
--- NOTE | 2017-08-20 20:00 | NUR ---
PT ASSESSMENT COMPLETE. SEE EMR FOR DETAILS. VSS. PT OFFERS NO COMPLAINTS. CALL ROSE WITHIN REACH. WILL CONTINUE TO MONITOR.
[2017-08-21] VITALS (7 sets, daily range): BP systolic 87–116; BP diastolic 54–67; PULSE 77–94; TEMP 36.7–36.9; O2SAT 96–98; BMI 29.1
--- NOTE | 2017-08-21 00:01 | NUR ---
PT ASSESSMENT COMPLETE. SEE EMR FOR DETAILS. VSS. PT OFFERS NO COMPLAINTS. CALL ROSE WITHIN REACH. WILL CONTINUE TO MONITOR.
--- NOTE | 2017-08-21 04:00 | NUR ---
PT ASSESSMENT COMPLETE. SEE EMR FOR DETAILS. VSS. PT OFFERS NO COMPLAINTS. CALL ROSE WITHIN REACH. WILL CONTINUE TO MONITOR.
[2017-08-21 05:32] LABS: BASO % 0.1 %; BASO ABS # 0.01 K/uL (0-0.2); EOS % 1.1 %; HEMATOCRIT 33.4 % (37-47); HEMOGLOBIN 11.3 g/dL (12.0-16.0); IG# 0.01 K/uL (0.00-0.02); LYMPH % 30.5 %; LYMPH ABS # 2.89 K/uL (1.2-3.4); MEAN CORPUSCULAR HEMOGLOBIN 28.8 pg (25-34); MEAN CORPUSCULAR HGB CONC 33.8 g/dl (32-36); MONO % 6.3 %; NEUT % 61.9 %; NEUT ABS # 5.86 K/uL (1.4-6.5); PLATELET COUNT 195 K/uL (130-400); RED CELL DISTRIBUTION WIDTH SD 40.2 fL (36.4-46.3); WHITE BLOOD COUNT 9.47 K/uL (4.8-10.8)
[2017-08-21 05:53] LABS: CALCIUM 8.4 mg/dl (8.5-10.1); CREATININE 0.63 mg/dl (0.60-1.20); POTASSIUM 3.8 mmol/L (3.5-5.1)
[2017-08-21] MEDS: INSULIN ASPART 100 UNITS/ML 3 ML PEN SC SCH ×4 (07:47→20:39)
[2017-08-21] MEDS: INSULIN GLARGINE SOLOSTAR 100 UNITS/ML 3 ML PEN SC SCH ×2 (07:48→20:57)
--- NOTE | 2017-08-21 08:00 | NUR ---
A/ID NOTE: PATIENT FULLY ASSESSED SEE EMR, VSS. PATIENT TOLERATING MEALS. PATIENT UP INDEPENDENTLY IN ROOM. BSG 95 THIS MORNING. PATIENT DENIES PAIN, RIGHT WRIST SITE DRESSING DRY AND INTACT. POSSIBLE DISCHARGE LATER TODAY.
[2017-08-21] MEDS: DOCUSATE SODIUM 100 MG CAP PO SCH ×2 (08:05→20:56)
[2017-08-21] MEDS: ATORVASTATIN 40 MG TAB PO SCH (08:05)
[2017-08-21] MEDS: LISINOPRIL 5 MG TAB PO SCH (08:05)
[2017-08-21] MEDS: ASPIRIN 81 MG ECTAB PO SCH (08:05)
[2017-08-21] MEDS: METOPROLOL TARTRATE 25 MG TAB PO SCH ×2 (08:05→20:56)
[2017-08-21] MEDS: PANTOprazole SOD 40 MG TAB PO SCH (08:05)
[2017-08-21] MEDS: NICOTINE 7 MG/24 HR TDSY TD SCH (08:06)
[2017-08-21] MEDS: TICAGRELOR 90 MG TAB PO SCH ×2 (08:06→20:56)
--- NOTE | 2017-08-21 10:23 | Discharge Instructions ---
Discharge Instructions Date of Service Aug 21, 2017. Admission Reason for Admission: Acute Myocardial Infarction Discharge Discharge Diagnosis / Problem: ST Elevation Myocardial Infarction Discharge Goals Goal(s): Improve disease control, Diagnostic testing Activity Recommendations Activity Limitations: per Instructions/Follow-up section ACTIVITY RECOMMENDATIONS following your heart catheterization: Excess manipulation of the RIGHT wrist should be avoided for the next 24-48 hours. * No lifting over 2 pounds (approximately a 1/2 gallon of milk) with the utilized arm for 24 hours. * Keep the site of the procedure covered with a bandage for 24 hours. * You may shower at this time. However, do not take a tub bath or submerge the puncture site in water for the next 3 days. * Do not operate any motorized equipment until cleared by your eye doctor. SPECIAL CARE INSTRUCTIONS: The site may be slightly bruised and sore following your procedure. Should any of the following occur, contact the Dr. who performed your procedure. 1. Redness/inflammation, swelling, chills, or fever, or colored drainage at procedure site within 3-7 days after your procedure. 2. Coldness, discoloration, ongoing numbness, severe pain, or swelling. Expect mild tingling of hand and tenderness at the puncture site for up to three days. If this persists beyond three days, or other symptoms develop, notify the Dr. who performed your procedure. BLEEDING: If the procedure site on your wrist begins to bleed, do not panic 1. Place 1 or 2 fingers firmly just slightly above the insertion site to stop the bleeding. You may be able to feel your pulse as you hold pressure. 2. Lift your finger after 5 minutes to see if the bleeding has stopped. 3. Once the bleeding has stopped, gently wipe the wrist area clean with a bandage. * If the bleeding from your wrist does not stop after 10 minutes, or if there is a large amount of bleeding or spurting, call 911 (do not drive yourself to the hospital). SKIN IRRITATION: * You may experience some redness and/or swelling in the area where radiation was administered. If any skin irritation occurs, please contact your family physician. . Instructions / Follow-Up Instructions / Follow-Up Activation of Emergency Medical System: Call 911, immediately, if you experience any of the following: Warning Signs and Symptoms of Stroke: * Sudden numbness or weakness of the face, arm or leg, especially on one side of the body * Sudden confusion, trouble speaking or understanding * Sudden trouble seeing in one or both eyes * Sudden trouble walking, dizziness, loss of balance or coordination * Sudden severe headache with no cause Do not delay calling 911 if you experience any warning signs or symptoms of a stroke. Delay in seeking medical attention may affect what treatments can be given to you. Risk Factors for Stroke: You can reduce your chances of stroke by working with your medical provider to adopt a healthy lifestyle. Some specific ways to lower your chance of stroke are: * If you are a smoker, now is the time to stop smoking cigarettes * If you are diabetic, improve the control of your blood sugars * Avoid excessive amounts of alcohol * Control high blood pressure * Lose weight if you are overweight * Be sure to lead an active lifestyle * Eat a healthy diet low in salt, cholesterol and fat You should know about other risk factors for stroke that you are unable to control. These include: * Age 55 years or older * Male gender * Certain racial groups: , or / * Family History of Stroke, Mini stroke or Heart Attack * Sickle Cell Disease Follow Up: It is important for you to keep your follow up appointments with your medical provider. Home Care: * Take your medications exactly as directed. Don't skip doses. * Remember that recovery after a heart attack takes time. Plan to rest for at lease 4-8 weeks while you recover. Then return to normal activity when your doctor says it's okay. * Ask your doctor about joining a heart rehabilitation program. * Tell your doctor if you are feeling depressed. Feelings of sadness are common after a heart attack, but it is important that you speak to someone if you are feeling overwhelmed by these feelings. * If you are having chest pain, call 911 for an ambulance. Do NOT drive yourself to the hospital. * Ask your family members to learn CPR. * Learn to take your own blood pressure and pulse. Keep a record of your results. Ask your doctor when you should seek emergency medical attention. He or she will tell you which blood pressure reading is dangerous. * Take your blood pressure daily and record a log. Lifestyle Changes: * Maintain a healthy weight. Get help to lose any extra pounds. * Cut back on salt. * Limit canned, dried, packaged, and fast foods. * Don't add salt to your food. * Season foods with herbs instead of salt when you cook. * Break the smoking habit. Enroll in a stop-smoking program to improve your chances of success. * Limit fatty foods. * Ask your doctor about having your lipid levels checked regularly. * Build up your activity according to your doctor's recommendation. * Ask your doctor when it's okay to resume sexual activity. * Try to manage stress. Follow Up: It is important for you to keep your follow up appointments with your medical provider. Please check your blood sugars in the morning and evening. Bring a log of your blood sugar values with you to your follow up visit. Call your doctor if your blood sugars are consistently outside of your goal range. Blood Glucose Goal * Before Meals 80-120 * After Meals Less than 160 When to Call Provider * Blood Sugar Less than 70 * Blood Sugar Greater 300 * Can't Keep Food Down * Can't Keep Fluids Down You have appt on 09/30 @ 10:30am in the [facility] office with ADRIAN Scott Call if need to cancel You have an appointment at [facility] today at [address] [place] [id number] Current Hospital Diet Patient's current hospital diet: AHA Diet (Heart Healthy), Diabetes Type 2 Diet Discharge Diet Recommended Diet: AHA Diet (Heart Healthy), Diabetes Type 2 Diet Procedures Procedures Performed: Cardiac catheterization, stent placement Pending Studies Studies pending at discharge: no Laboratory Results Hemoglobin A1c Test 08/18/17 22:15 Range/Units Estimated Average Glucose 335 mg/dl Hemoglobin A1c 13.3 H 4.5-5.6 % Lipid Panel Test 08/19/17 06:09 Range/Units Triglycerides Level 175 H 0-150 mg/dl Cholesterol Level 233 H 0-200 mg/dl HDL Cholesterol 56 mg/dl Cholesterol/HDL Ratio 4.2 LDL Cholesterol, Calculated 142 mg/dl Medical Emergencies . Who to Call and When: Medical Emergencies: If at any time you feel your situation is an emergency, please call 911 immediately. Call 911 immediately or go to your nearest Emergency Room if you experience any of the following: Warning Signs and Symptoms of a Heart Attack * Chest pain that is not relieved by medication * Shortness of breath . Non-Emergent Contact Non-Emergency issues call your: Primary Care Provider, Housing Court Judge Call Non-Emergent contact if: your pain is not controlled, your pain is worsening, your pain is unusual for you, your pain is concerning you, you have any medication questions . . "Provider Documentation" section prepared by Shereen Hurt. . AMI Core Measures Reason no ASA as I/P: Treatment provided - N/A Reason no ASA at D/C: Treatment provided - N/A Reason no statin as I/P: Treatment provided - N/A Reason no statin at D/C: Treatment provided - N/A VTE Core Measure Inpt VTE Proph given/why not?: Other Anticoagulation
[2017-08-21] MEDS ORDERED: INSDGIPEN SC (10:45)
[2017-08-21] MEDS ORDERED: FSTTS SC (10:45)
[2017-08-21] MEDS ORDERED: GLC/500 PO (10:45)
[2017-08-21] MEDS ORDERED: insu (10:45)
[2017-08-21] MEDS ORDERED: LPR25 PO (10:45)
[2017-08-21] MEDS ORDERED: CLOP1TAB5 PO (10:45)
[2017-08-21] MEDS ORDERED: CLOPIDOGREL BISULFATE 300 MG TAB PO STA (10:45)
[2017-08-21] MEDS ORDERED: NTRSLP4 SL (10:45)
[2017-08-21] MEDS ORDERED: LPT40 PO (10:45)
[2017-08-21] MEDS ORDERED: ASPI-320 PO (10:45)
[2017-08-21] MEDS ORDERED: LISI-730 PO (10:45)
--- NOTE | 2017-08-21 11:08 | Cardiology Follow-Up ---
Subjective Subjective Date of Service: Aug 21, 2017. Pt evaluation today including: conversation w/ patient, conversation w/ family , physical exam, chart review, lab review, review of studies, review of inpatient medication list Additional Details: Feeling well. No chest pain. No shortness of breath. Nausea improved. Tele reviewed -- no events. Review of Systems Constitutional: No fever, No chills, No sweats, No weight loss, No weakness, No fatigue, No problem reported Eyes: No worsening of vision, No eye pain, No redness, No discharge, No diplopia ENT: No hearing loss, No unusual epistaxis, No nasal symptoms, No sore throat, No tinnitus, No dental problems, No trouble swallowing Respiratory: No cough, No sputum, No wheezing, No shortness of breath, No dyspnea on exertion, No dyspnea at rest, No hemoptysis Cardiac: No chest pain, No orthopnea, No PND, No edema, No claudication, No palpitations Abdomen: No pain, No nausea, No vomiting, No diarrhea, No constipation Musculoskeletal: No joint pain, No muscle pain, No swelling, No calf pain Female : No dysuria, No urinary frequency, No hematuria, No incontinence, No abnormal vaginal bleeding, No vaginal discharge Neurologic: No memory loss, No paralysis, No weakness, No numbness/tingling, No vertigo, No balance problems Psychiatric: No depression symptoms, No anhedonism, No anxiety, No insomnia, No substance abuse Heme: No abnormal bleeding/bruising, No clotting problems, No swollen lymph nodes, No night sweats Endo: No fatigue, No excessive thirst, No excessive urination Skin: No rash, No itch, No new/changing skin lesions, No color change, No bleeding Objective Vital Signs Last Vital Signs Documentation Date Time Temp Pulse Resp B/P (MAP) Pulse Ox O2 Delivery O2 Flow Rate FiO2 08/21/17 08:00 36.7 91 19 99/57 (71) 96 Room Air 08/20/17 07:25 2.0 Physical Exam: General Appearance: no apparent distress ENT: normal ENT inspection Neck: no JVD Respiratory/Chest: lungs clear, normal breath sounds Cardiovascular: regular rate, rhythm, no edema, no murmur Abdomen: normal bowel sounds, non tender, soft Extremities: normal inspection, no pedal edema, no calf tenderness, + pertinent finding (no right radial artery access site complications. ) Neurologic/Psychiatric: alert, normal mood/affect, oriented x 3 Skin: normal color, warm/dry, no rash, + pertinent finding (right wrist cath area no obvious tender, pulse good capillary refill was normal, no color changes ) Assessment and Plan 1. Anterior STEMI s/p PPCI with CR to proximal LAD 2. Residual small vessel CAD 3. Mild to moderate LV dysfunction. 4. Poorly controlled DM/hyperglycemia 5. Hypotension Remains chest pain free. Feeling well. Well perfused without congestion on exam. Blood sugars stable From a cardiac standpoint OK for discharge today. -- Discharge on dual antiplatelet therapy with aspirin and Plavix. -- will need to be loaded with Plavix before she leaves--give 300 mg x1 prior to discharge then start 75 mg tomorrow -- Continue current beta-migel -- Continue current NELSON -- High-intensity statin -- medical management residual CAD Follow-up with me in 2-3 weeks [facility] Hospital Medicine/ICU team care Continued [facility] stay due to: multiple IV medications needed Discharge planning: home Medications: Current Inpatient Medications Medications (Trade) Dose Ordered Sig/Russ Route Start Time Stop Time Status Last Admin Dose Admin Nitroglycerin (Nitrostat Tab) 0.4 mg UD PRN SL 08/18/17 23:45 09/17/17 23:44 Ondansetron HCl (Zofran Inj) 4 mg Q6H PRN IV 08/18/17 23:45 09/17/17 23:44 08/19/17 09:11 4 MG Aspirin (Ecotrin Tab) 81 mg QAM PO 08/19/17 09:00 09/18/17 08:59 08/21/17 08:05 81 MG Atorvastatin Calcium (Lipitor Tab) 80 mg QAM PO 08/19/17 09:00 09/18/17 08:59 08/21/17 08:05 80 MG Metoprolol Tartrate (Lopressor Tab) 12.5 mg Q12 PO 08/19/17 09:00 09/18/17 08:59 08/21/17 08:05 12.5 MG Lisinopril (Zestril Tab) 5 mg QAM PO 08/19/17 09:00 09/18/17 08:59 08/21/17 08:05 5 MG Acetaminophen (Tylenol Tab) 650 mg Q4H PRN PO 08/18/17 23:45 09/17/17 23:44 Ticagrelor (Brilinta Tab) 90 mg BID PO 08/19/17 09:00 09/18/17 08:59 08/21/17 08:06 90 MG Glucose (Glucose 40% Gel) 15-30 GRAMS 15 GRAMS... UD PRN PO 08/19/17 00:30 09/18/17 00:29 Glucose (Glucose Chew Tab) 4-8 Tablets 4 Tabl... UD PRN PO 08/19/17 00:30 09/18/17 00:29 Dextrose (Dextrose 50% 50ML Syringe) 25-50ML OF 50% DW IV FOR... UD PRN IV 08/19/17 00:30 09/18/17 00:29 Glucagon (Glucagon Inj) 1 mg UD PRN SQ 08/19/17 00:30 09/18/17 00:29 Nicotine (Nicoderm Cq 7 Mg Patch) 1 patch QAM TD 08/19/17 09:00 09/18/17 08:59 Miscellaneous (Remove Nicoderm Patch) 1 ea HS N/A 08/19/17 21:00 09/18/17 20:59 08/20/17 21:03 1 EA Insulin Glargine (Lantus Solostar Pen) 10 units BID SC 08/19/17 09:00 09/18/17 08:59 08/21/17 07:48 10 UNITS Insulin Aspart (novoLOG ASPART) SLIDING SCALE G... ACHS SC 08/19/17 16:00 09/18/17 15:59 08/21/17 07:47 6 UNITS Docusate Sodium (coLACE CAP) 100 mg BID PO 08/19/17 21:00 09/18/17 20:59 08/21/17 08:05 100 MG Pantoprazole Sodium (Protonix Tab) 40 mg QAM PO 08/21/17 09:00 09/20/17 08:59 08/21/17 08:05 40 MG Lab Results: 08/21/17 05:08 Red Blood Count 3.93, Mean Corpuscular Volume 85.0, Mean Corpuscular Hemoglobin 28.8, Mean Corpuscular Hemoglobin Concent 33.8, Mean Platelet Volume 10.0, Neutrophils (%) (Auto) 61.9, Lymphocytes (%) (Auto) 30.5, Monocytes (%) (Auto) 6.3, Eosinophils (%) (Auto) 1.1, Basophils (%) (Auto) 0.1, Neutrophils # (Auto) 5.86, Lymphocytes # (Auto) 2.89, Monocytes # (Auto) 0.60, Eosinophils # (Auto) 0.10, Basophils # (Auto) 0.01 08/21/17 05:08 Test 08/20/17 13:41 08/20/17 20:51 08/21/17 05:08 Troponin I 26.400 ng/ml (0-0.045) Bedside Glucose 155 mg/dl (70-90) White Blood Count 9.47 K/uL (4.8-10.8) Red Blood Count 3.93 M/uL (4.2-5.4) Hemoglobin 11.3 g/dL (12.0-16.0) Hematocrit 33.4 % (37-47) Mean Corpuscular Volume 85.0 fL (80-100) Mean Corpuscular Hemoglobin 28.8 pg (25-34) Mean Corpuscular Hemoglobin Concent 33.8 g/dl (32-36) Platelet Count 195 K/uL (130-400) Mean Platelet Volume 10.0 fL (7.4-10.4) Neutrophils (%) (Auto) 61.9 % Lymphocytes (%) (Auto) 30.5 % Monocytes (%) (Auto) 6.3 % Eosinophils (%) (Auto) 1.1 % Basophils (%) (Auto) 0.1 % Neutrophils # (Auto) 5.86 K/uL (1.4-6.5) Lymphocytes # (Auto) 2.89 K/uL (1.2-3.4) Monocytes # (Auto) 0.60 K/uL (0.11-0.59) Eosinophils # (Auto) 0.10 K/uL (0-0.5) Basophils # (Auto) 0.01 K/uL (0-0.2) RDW Standard Deviation 40.2 fL (36.4-46.3) RDW Coefficient of Variation 13.0 % (11.5-14.5) Immature Granulocyte % (Auto) 0.1 % Immature Granulocyte # (Auto) 0.01 K/uL (0.00-0.02) Anion Gap 6.0 mmol/L (3-11) Est Creatinine Clear Calc Drug Dose 105.5 ml/min Estimated GFR () 122.9 Estimated GFR (Non- 106.1 BUN/Creatinine Ratio 23.8 (10-20) Calcium Level 8.4 mg/dl (8.5-10.1)
--- NOTE | 2017-08-21 12:00 | NUR ---
A NOTE: PATIENT SEND FOR MRI OF BRAIN. PATIENT STATED SHE HAD VISUAL CHANGES. STILL WAITING FOR RESULTS.
--- NOTE | 2017-08-21 12:34 | DIAGNOSTIC IMAGING REPORT ---
Brain MRI WITHOUT CONTRAST HISTORY: black spot left eye vision, numbness left hand TECHNIQUE: Utilizing 1.5 Araceli magnet axial DWI, sagittal T1 FLAIR, axial T2, and ADC maps of the brain were obtained without intravenous contrast. Additional sequences were unable to be obtained as the patient terminated the examination only. COMPARISON STUDY: None. FINDINGS: A 5 mm focus of restricted diffusion within the left cerebellar hemisphere and within the right occipital lobe consistent with acute infarcts. Small retention cysts within the floor the right maxillary sinus. The orbits are unremarkable. The mastoid air cells are clear. The major vascular flow-voids at the skull base are well-maintained. The ventricles and sulci are within normal limits for age. Scattered foci of T2 hyperintensity seen within the white matter of the supratentorial brain. There is no definite mass, hematoma, midline shift. The midline structures are intact. IMPRESSION: 1. Punctate acute infarcts seen within the left cerebellar hemisphere and right occipital lobe. 2. Scattered foci of T2 hyperintensity seen within the white matter of the supratentorial brain. This is slightly greater than expected for age. This could be due to microvascular ischemic change but may also be seen in the setting of multiple sclerosis, Lyme disease, or a vasculitis. 3. Of note, the patient was unable to complete the entire examination Electronically signed by: Candido Martinez M.D. 08/21/2017 12:33 PM Dictated Date/Time: 08/21/2017 12:25 PM
--- NOTE | 2017-08-21 12:39 | NUR ---
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 Tay Ricks TODAY at 4 pm in the [facility]. *This store is located at [address] [place] [address] in [place]. The phone number is [phone]. Please, follow up on FridayAugust 27 at 2:[address] Rodrigo Ricks. *If you need to change this appointment you can call his office at [phone]. Please, follow up at The [facility] Cardiology Office with Dr. Mario Olvera on FridaySeptember 02 at 11:00 am (arrive at 10:40 am). *This office is located in [address] of The [facility] building next to this [facility]. If you need to change this appointment you can call the office at [phone]." Addendum: 08/22/17 at 1353 by Lia Monzon SERV Follow up appointment made w/ neurology and info entered onto the AR instructions - "Please, follow up at The [facility] Neurology Office with Malathi Orozco PA-C on FridaySeptember 12 at 10:00 am (arrive 9:45 am). *This office is located in [address] of The [facility] at [address] in [place]. If you need to change this appointment you can call the office at [phone]."
[2017-08-21] MEDS ORDERED: PHARMACIST DISCHARGE MED REC CONSULT PRN (13:00)
[2017-08-21] MEDS ORDERED: LORAZEPAM 0.5 MG TAB PO SCH (14:30)
--- NOTE | 2017-08-21 14:30 | Hospitalist Progress Note ---
Hospitalist Progress Note Date of Service Aug 21, 2017. (Shereen Hurt ., ADRIAN) Subjective Pt evaluation today including: conversation w/ patient, physical exam, chart review, lab review, review of studies, conversation w/ financial sales consultant, review of inpatient medication list I was going over Ms. Cotter's discharge this morning when she mentioned she had a black spot in her left vision. She had also had some transient left hand numbness that had since resolved. Symptoms had started about five hours previous to her mentioning it. MRI showed two punctuate infarcts. ROS Constitutional: no chills, aches, sweats or fever Respiratory: no sob,cough, sputum, or wheezing Cardiac: no chest pain, palpitations, edema, orthopnea or lightheadedness GI: no abdominal pain, nausea, vomiting, diarrhea or constipation : no dysuria or hesitancy Extremities: see HPI Skin: no rash (Shereen Hurt .ADRIAN) Medications Medications Administered Medications (Trade) Dose Ordered Sig/Russ Route Start Time Stop Time Status Last Admin Dose Admin Sodium Chloride 1,000 ml @ 999 mls/hr Q1H1M STAT IV 08/18/17 22:14 08/18/17 23:14 DC 08/18/17 22:14 999 MLS/HR Morphine Sulfate (MoRPHine SULFATE INJ) 4 mg STK-MED ONCE .ROUTE 08/18/17 22:14 08/18/17 22:15 DC 08/18/17 22:14 4 MG Aspirin (Aspirin Chew) 324 mg STK-MED ONCE .ROUTE 08/18/17 22:14 08/18/17 22:15 DC 08/18/17 22:14 324 MG Nitroglycerin (Nitrostat Tab) 1.2 mg STK-MED ONCE .ROUTE 08/18/17 22:15 08/18/17 22:16 DC 08/18/17 22:15 1.2 MG Nitroglycerin (Nitrostat Tab) 0.4 mg PRN PRN SL 08/18/17 22:15 08/19/17 00:17 DC 08/18/17 22:27 0.4 MG Ondansetron HCl (Zofran Inj) 4 mg STK-MED ONCE .ROUTE 08/18/17 22:19 08/18/17 22:20 DC 08/18/17 22:23 4 MG Miscellaneous Information (Nursing Verbal Med Order) 1 ea ONE ONCE N/A 08/18/17 22:30 08/18/17 22:31 DC 08/18/17 22:28 1 EA Heparin Sodium (Porcine) (Heparin Iv Bolus) 10,000 unit STK-MED ONCE .ROUTE 08/18/17 22:34 08/18/17 22:35 DC 08/18/17 23:23 10,000 UNIT Ondansetron HCl (Zofran Inj) 4 mg STK-MED ONCE .ROUTE 08/18/17 22:34 08/18/17 22:35 DC 08/18/17 22:36 4 MG Midazolam HCl (Versed Inj) 2 mg STK-MED ONCE .ROUTE 08/18/17 22:34 08/18/17 22:35 DC 08/18/17 22:34 1 MG Fentanyl Citrate (Fentanyl Inj) 100 mcg STK-MED ONCE .ROUTE 08/18/17 22:34 08/18/17 22:35 DC 08/18/17 22:34 25 MCG Ticagrelor (Brilinta Tab) 180 mg STK-MED ONCE PO 08/18/17 23:34 08/18/17 23:35 DC 08/18/17 23:34 180 MG Sodium Chloride 1,000 ml @ 125 mls/hr Q8H IV 08/18/17 23:45 08/19/17 07:44 DC 08/19/17 01:08 125 MLS/HR Ondansetron HCl (Zofran Inj) 4 mg Q6H PRN IV 08/18/17 23:45 09/17/17 23:44 08/19/17 09:11 4 MG Aspirin (Ecotrin Tab) 81 mg QAM PO 08/19/17 09:00 09/18/17 08:59 08/21/17 08:05 81 MG Atorvastatin Calcium (Lipitor Tab) 80 mg QAM PO 08/19/17 09:00 09/18/17 08:59 08/21/17 08:05 80 MG Metoprolol Tartrate (Lopressor Tab) 12.5 mg Q12 PO 08/19/17 09:00 09/18/17 08:59 08/21/17 08:05 12.5 MG Lisinopril (Zestril Tab) 5 mg QAM PO 08/19/17 09:00 09/18/17 08:59 08/21/17 08:05 5 MG Ticagrelor (Brilinta Tab) 90 mg BID PO 08/19/17 09:00 08/21/17 13:44 DC 08/21/17 08:06 90 MG Insulin Glargine (Lantus Per Unit) 30 units ONE STAT SC 08/19/17 00:15 08/19/17 00:16 DC 08/19/17 01:09 30 UNITS Insulin Human Regular (Insulin IV Infusion Protocol) 1 ea NOW STAT N/A 08/19/17 00:01 08/19/17 01:19 DC 08/19/17 00:01 1 EA Insulin Aspart (novoLOG ASPART) SLIDING SCALE PCOSS HEALTH 08/19/17 09:00 08/19/17 15:00 DC 08/19/17 12:14 3 UNITS Miscellaneous (Insulin Protocol Goal Range (Other)) 1 ea ONE ONCE N/A 08/19/17 00:15 08/19/17 01:19 DC 08/19/17 00:15 1 EA Miscellaneous (Insulin Protocol Moderate Stress Level) 1 ea ONE ONCE N/A 08/19/17 00:15 08/19/17 01:19 DC 08/19/17 00:15 1 EA Miscellaneous (Remove Nicoderm Patch) 1 ea HS N/A 08/19/17 21:00 09/18/17 20:59 08/20/17 21:03 1 EA Insulin Human Regular (NovoLIN R BOLUS FROM BAG) 2 unit ONE ONCE IV 08/19/17 01:15 08/19/17 01:16 DC 08/19/17 01:15 2 UNIT Insulin Human Regular 250 units/ Sodium Chloride 252.5 ml @ 0 mls/hr Q24H IV 08/19/17 01:30 08/19/17 15:00 DC 08/19/17 01:53 1.8 MLS/HR Insulin Glargine (Lantus Solostar Pen) 10 units BID SC 08/19/17 09:00 09/18/17 08:59 08/21/17 07:48 10 UNITS Miscellaneous (Stop Order) 1 ea TODAY@1500 ONCE N/A 08/19/17 15:00 08/19/17 15:01 DC 08/19/17 14:58 1 EA Insulin Aspart (novoLOG ASPART) SLIDING SCALE G... ACHS SC 08/19/17 16:00 09/18/17 15:59 08/21/17 12:25 8 UNITS Docusate Sodium (coLACE CAP) 100 mg BID PO 08/19/17 21:00 09/18/17 20:59 08/21/17 08:05 100 MG Potassium Chloride (Klor-Con M10) 20 meq Q4H PO 08/20/17 05:45 08/20/17 13:46 DC 08/20/17 13:54 20 MEQ Pantoprazole Sodium (Protonix Tab) 40 mg QAM PO 08/21/17 09:00 09/20/17 08:59 08/21/17 08:05 40 MG Pantoprazole Sodium (Protonix Tab) 40 mg 1044 ONCE PO 08/20/17 10:44 08/20/17 10:48 DC 08/20/17 12:15 40 MG (Shereen Hurt CRNP) Objective Vital Signs Date Time Temp Pulse Resp B/P (MAP) Pulse Ox O2 Delivery O2 Flow Rate FiO2 08/21/17 12:00 Room Air 08/21/17 12:00 36.7 94 20 116/67 (83) 96 Room Air 08/21/17 08:00 36.7 91 19 99/57 (71) 96 Room Air 08/21/17 08:00 Room Air 08/21/17 04:04 36.8 90 16 91/58 (69) 96 Room Air 08/21/17 04:00 Room Air 08/20/17 23:59 Room Air 08/20/17 23:22 36.7 91 16 84/59 (67) 98 Room Air 08/20/17 21:10 36.9 94 17 107/68 (81) 96 Room Air 08/20/17 20:00 Room Air 08/20/17 16:00 Room Air 08/20/17 15:10 36.8 94 19 99/63 (75) 98 Room Air (Shereen Hurt CRNP) Physical Exam Notes: General: no distress Eyes: normal inspection, PERLL, normal visual hood, EOMI Respiratory: chest non tender, clear to auscultation, normal breath sounds, no respiratory distress, no accessory muscle use Cardiac: regular rate and rhythm, no rub or gallop, no murmur, no edema, no jvd GI/: active bowel sounds, no abd pain or tenderness, soft, non distended Extremities: normal range of motion, normal strength, non tender Neuro/Psych: alert and oriented x 3, normal mood and affect, equal bilateral strength, equal sensation Skin: normal color, dry (Shereen Hurt CRNP) Laboratory Results Last 24 Hours Test 08/20/17 16:01 08/20/17 20:51 08/21/17 05:08 08/21/17 11:24 Bedside Glucose 119 mg/dl 155 mg/dl 255 mg/dl White Blood Count 9.47 K/uL Red Blood Count 3.93 M/uL Hemoglobin 11.3 g/dL Hematocrit 33.4 % Mean Corpuscular Volume 85.0 fL Mean Corpuscular Hemoglobin 28.8 pg Mean Corpuscular Hemoglobin Concent 33.8 g/dl Platelet Count 195 K/uL Mean Platelet Volume 10.0 fL Neutrophils (%) (Auto) 61.9 % Lymphocytes (%) (Auto) 30.5 % Monocytes (%) (Auto) 6.3 % Eosinophils (%) (Auto) 1.1 % Basophils (%) (Auto) 0.1 % Neutrophils # (Auto) 5.86 K/uL Lymphocytes # (Auto) 2.89 K/uL Monocytes # (Auto) 0.60 K/uL Eosinophils # (Auto) 0.10 K/uL Basophils # (Auto) 0.01 K/uL RDW Standard Deviation 40.2 fL RDW Coefficient of Variation 13.0 % Immature Granulocyte % (Auto) 0.1 % Immature Granulocyte # (Auto) 0.01 K/uL Sodium Level 138 mmol/L Potassium Level 3.8 mmol/L Chloride Level 105 mmol/L Carbon Dioxide Level 27 mmol/L Anion Gap 6.0 mmol/L Blood Urea Nitrogen 15 mg/dl Creatinine 0.63 mg/dl Est Creatinine Clear Calc Drug Dose 105.5 ml/min Estimated GFR () 122.9 Estimated GFR (Non- 106.1 BUN/Creatinine Ratio 23.8 Random Glucose 95 mg/dl Calcium Level 8.4 mg/dl (Shereen Hurt CRNP) Assessment and Plan 47 y/o F Hx DM, HTN, smoker here for emergent catheterization for anterior STEMI. 08/21 developed spot in her left eye vision and transient left hand numbness. MRI showed two punctuate lesions in the right occipital and left cerebellar regions. STEMI/ HTN - post single CR to prox LAD - Placed on Brilinta, ASA, Statin, - she will need to switch to plavix for discharge per cardiology - Troponins peaked at 85, trending back down - metoprolol, NELSON - already administered this morning, will hold NELSON for tomorrow morning in attempt to keep pressures higher for post CVA perfusion CVA - MRI as above - Per neurology - carotid dopplers and MRA head - Per cardiology - repeat echo with bubble study - stroke protocol - PT/OT DM - hyperglycemia without DKA - A1c 13.3 - insulin drip off - sliding scale and lantus - will d/c with metformin and lantus - diabetes education Current smoker - nicotine patch - smoking cessation education Full code DVT prophylaxis - Aspirin (Shereen Hurt ., ADRIAN) MANAGER EVENT Physician Supervision Note: I interviewed and examined the patient. Discussed with Shereen Hurt MANAGER EVENT and agree with findings and plan as documented in the note. Any exceptions or clarifications are listed here: None Patient presented with an STEMI, status post drug-eluting stent to the LAD glucose intolerance and poor diabetic control. Prior to leaving she informed Shereen Hurt about visual impairment and some subjective arm weakness MRI confirms small stroke which likely embolic from catheterization procedure could also be from her diabetic disease. We'll have the patient remain in the hospital from continue monitoring neurologic consult and further vascular evaluation. Her current vital signs are stable Her subjective hand numbness has resolved bedside ophthalmologic interrogation is challenging sign cardiac exam is regular lungs are clear [place] imaging shows 2 distinct lesions which are consistent with an embolic source We'll patient remain in the hospital continue antiplatelet agents secondary risk modification and statin agents with the pending neurology consultation will eventually refer for outpatient ophthalmology both for her stroke visual field loss and diabetic eye care Documented By: Trev Watson (Trev Watson M.D.)
--- NOTE | 2017-08-21 15:11 | DIAGNOSTIC IMAGING REPORT ---
ULTRASOUND OF THE CAROTID ARTERIES CLINICAL HISTORY: Stroke. COMPARISON STUDY: No priors. TECHNIQUE: Real-time, grayscale, and color Doppler sonography of the carotid arteries is performed. Images are reviewed in the transverse and longitudinal planes. FINDINGS: The carotid arteries are patent bilaterally and demonstrate antegrade flow. There is minimal atherosclerotic plaque identified. Normal doppler arterial waveforms are seen throughout. Velocity measurements are listed below. Common carotid peak systolic velocity (cm/sec): RIGHT: 75 LEFT: 115 ICA proximal peak systolic velocity (cm/sec): RIGHT: 118 LEFT: 76 ICA mid peak systolic velocity (cm/sec): RIGHT: 103 LEFT: 104 ICA distal peak systolic velocity (cm/sec): RIGHT: 93 LEFT: 94 ICA/CC peak systolic ratio: RIGHT: 1.5 LEFT: 0.9 Antegrade flow was shown in the vertebral arteries. The external carotid arteries are patent. IMPRESSION: 1. There is no sonographic evidence of hemodynamically significant stenosis in the right or left carotid arterial system. 2. Antegrade flow is shown in the vertebral arteries. Electronically signed by: Rogelio De Santiago M.D. 08/21/2017 3:10 PM Dictated Date/Time: 08/21/2017 3:08 PM
--- NOTE | 2017-08-21 15:21 | NUR ---
DIABETES Diabetes Follow-up. BG 426 on admit. Insulin drip was initiated. Pt transitioned to SC insulin on 08/19. A1c 13.3% (eAG 335). Current Meds: Lantus 10units BID and Novolog 1:7 plus CF:20 with BG goal of 140-180. Fasting BG 95 this AM. BG 255 pre-lunch. No surprise as pt reports eating pancakes and cereal for breakfast. Other values [phone] yesterday. Please see [facility]: Inpatient Teaching Record (note pad icon) for additional info. OUTPATIENT RECOMMENDATIONS: 1. Lantus once daily in AM. 2. Metformin 500mg daily. Titrate by 500mg weekly, as tolerated, to goal of 1000mg BID. 3. Call PCP with persistent hyper/hypoglycemia. 4. Follow-up with Endo on 09/30. PRESCRIPTIONS NEEDED 1. OneTouch Verio test strips to SMBG 2x/day. 2. OneTouch Delica lancets to SMBG 2x/day. 3. BD Nilam insulin pen needles. Addendum: 08/21/17 at [address] Amended: Links added.
--- NOTE | 2017-08-21 15:24 | NUR ---
Case Management: Consult received as patient now for r/o CVA; Have met with patient at bedside. Patient is alert and oriented, resides at home with her significant other Tay and three children. Patient reports independence for all activities at baseline. She denies the use of home oxygen or assistive device. She also denies active services. Did discuss diabetes management with patient (diabetic education consultation was placed). Patient denies financial concerns regarding new medications and states that she feels she will be able to manage injections. Upon discharge patient plans to return home with self care and has denied all needs. Case management will follow.
--- NOTE | 2017-08-21 15:30 | NUR ---
A; PT RESTING IN BED. PT ASSESSMENT CHARTED. PT IN NO DISTRESS. PT NO COMPLAINTS. PT REPORTING BLACK DOT IN THE MIDDLE OF LEFT EYE. NIH SCORE IS A ZERO. WILL CONTINUE TO MONITOR .
[2017-08-21] MEDS ORDERED: PERFLUTREN LIPID MICROSPHERE (DEFINITY) IV ONE (15:32)
--- NOTE | 2017-08-21 17:20 | NUR ---
A: PT WENT FOR MRA. PRE-TREATMENT OF PO 0.5MG ATIVAN GIVEN.
--- NOTE | 2017-08-21 18:12 | ECHOCARDIOGRAM REPORT ---
*NOTICE TO RECEIVING DEMOCRAT AGENCY This information is strictly Confidential and protected under [place] law. [place] law prohibits you from making any further disclosure of this information unless further disclosure is expressly permitted by the written consent of the person to whom it pertains or is authorized by law. A general authorization for the release of medical or other information is not sufficient for this purpose. Hospital accepts no responsibility if the information is made available to any other person, INCLUDING THE PATIENT. Interpretation Summary * Name: ENRIQUETA ETIENNE Study Date: 08/21/2017 02:49 PM BP: 116/67 mmHg * Patient Location: .MSICU\S\E107\S\1 HR: 94 * : 1970 (M/d/yyyy) Gender: Female Height: 63 in * Age: 47 yrs Ethnicity: CA Weight: 164 lb * Ordering Physician: Shereen Hurt * Referring Physician: Self, Referred * Performed By: Crystal Coy RDCS * * Reason For Study: CEREBRAL ISCHEMIA/ EMBOLUS * BSA: 1.8 m2 * Mild left ventricular systolic dysfunction. * Apical akinesis of the left ventricle. Hypokinesis of the mid anterior, anterior septal, and anterior LV segments. * Normal right ventricular size and systolic function. * Normal chamber dimensions. * No significant valvular abnormalities. * No evidence of intracardiac shunt. * No conclusive evidence of a cardioembolic source. Procedure Details * A saline contrast injection was performed to assess for cardiac shunting. * The injection was performed through an intravenous line in the left arm. * The attending nurse who injected the saline contrast was HAMMAD GARCIA RN. * A total of 20 cc of agitated saline was given. * A contrast injection of Definity was performed to improve assessment of LV function. * Contrast was injected into an intravenous site in the left arm. * One vial of Definity ultrasound contrast was diluted in normal saline to a total volume of 10 ml. A total of '2' ml of solution was administered during imaging. * Lot # [id number] of Definity utilized for procedure. * Expiration date SEP 29. * The attending nurse who injected the contrast agent was HAMMAD GARCIA RN. Left Ventricle * The left ventricle is normal in size. * Apical echoes consistent with trabeculae are noted. Cannot rule out associated thrombi. * There is normal left ventricular wall thickness. * Ejection Fraction = 45-50%. * Left ventricular systolic function is mildly reduced. * There is apical akinesis. * Mid anterior, septal, and anteroseptal hypokinesis. Right Ventricle * The right ventricle is normal size. * The right ventricular systolic function is normal as assessed by tricuspid annular plane systolic excursion (TAPSE) (normal >1.5 cm). Atria * The left atrial size is normal. * Right atrial size is normal. * Injection of contrast documented no interatrial shunt. Mitral Valve * The mitral valve is normal. * There is no mitral valve stenosis. * There is no mitral regurgitation noted. Tricuspid Valve * The tricuspid valve is not well visualized, but is grossly normal. * There is no tricuspid stenosis. * Significant tricuspid regurgitation is absent. Aortic Valve * The aortic valve is trileaflet. * The aortic valve opens well. * Aortic stenosis is absent. * No aortic regurgitation is present. Pulmonic Valve * The pulmonic valve is not well visualized. * The pulmonary valve is inadequately visualized, but the Doppler data is adequate for interpretation. * There is no pulmonic valvular stenosis. * There is no pulmonic valvular regurgitation. Great Vessels * The aortic root is normal size. Pericardium/Pleural * There is no pericardial effusion. Great Vessels * Normal inferior vena cava diameter and respiratory variation suggests normal central venous pressure. MMode 2D Measurements and Calculations IVSd 1.0 cm IVSs 1.3 cm LVIDd 3.9 cm LVIDs 2.9 cm LVPWd 1.0 cm LVPWs 1.3 cm IVS/LVPW 0.97 FS 25.5 % EDV(Teich) 67.8 ml ESV(Teich) 33.3 ml EF(Teich) 50.8 % EDV(cubed) 61.4 ml ESV(cubed) 25.4 ml EF(cubed) 58.6 % % IVS thick 30.7 % % LVPW thick 28.8 % LV mass(C)d 128.0 grams LV mass(C)dI 72.0 grams/m\S\2 LV mass(C)s 124.7 grams LV mass(C)sI 70.1 grams/m\S\2 SV(Teich) 34.4 ml SI(Teich) 19.4 ml/m\S\2 SV(cubed) 36.0 ml SI(cubed) 20.3 ml/m\S\2 Ao root diam 2.7 cm Ao root area 5.8 cm\S\2 LA dimension 3.2 cm LA/Ao 1.2 LVAd ap4 29.1 cm\S\2 LVLd ap4 7.5 cm EDV(MOD-sp4) 95.5 ml EDV(sp4-el) 95.4 ml LVAs ap4 19.3 cm\S\2 LVLs ap4 6.1 cm ESV(MOD-sp4) 50.9 ml ESV(sp4-el) 51.9 ml EF(MOD-sp4) 46.7 % EF(sp4-el) 45.6 % LVAd ap2 27.9 cm\S\2 LVLd ap2 7.0 cm EDV(MOD-sp2) 94.6 ml EDV(sp2-el) 95.0 ml LVAs ap2 19.2 cm\S\2 LVLs ap2 6.2 cm ESV(MOD-sp2) 49.4 ml ESV(sp2-el) 50.4 ml EF(MOD-sp2) 47.8 % EF(sp2-el) 47.0 % LVLd %diff -8.11 % EDV(MOD-bp) 98.3 ml LVLs %diff 2.2 % ESV(MOD-bp) 50.5 ml EF(MOD-bp) 48.7 % SV(MOD-sp4) 44.6 ml SI(MOD-sp4) 25.1 ml/m\S\2 SV(MOD-sp2) 45.2 ml SI(MOD-sp2) 25.5 ml/m\S\2 SV(MOD-bp) 47.9 ml SI(MOD-bp) 26.9 ml/m\S\2 SV(sp4-el) 43.6 ml SI(sp4-el) 24.5 ml/m\S\2 SV(sp2-el) 44.7 ml SI(sp2-el) 25.1 ml/m\S\2 Doppler Measurements and Calculations MV E max attila 89.8 cm/sec MV A max attila 72.1 cm/sec MV E/A 1.2 MV dec time 0.18 sec Ao V2 max 108.7 cm/sec Ao max PG 4.7 mmHg Ao max PG (full) 0.26 mmHg LV V1 max PG 4.5 mmHg LV V1 max 105.7 cm/sec
--- NOTE | 2017-08-21 18:15 | DIAGNOSTIC IMAGING REPORT ---
MRA HEAD WITHOUT CONTRAST CLINICAL HISTORY: 47 years-old Female presenting with black spot in left visual field, concern for stroke, recent myocardial infarction. TECHNIQUE: MR angiography of the head was performed without the use of intravenous contrast using 3-D [id number] technique. 3-D volumetric and/or maximum intensity projection (MIP) images were subsequently reconstructed for review. IV contrast: None. COMPARISON: Correlation made to MR brain performed earlier the same day. FINDINGS: Anterior circulation demonstrates patent intracranial portions of the internal carotid arteries. Slight irregularity of the paraclinoid segment of the left internal carotid artery (series 3 image 106), which is felt to most likely be due to tortuosity in this region rather than a blister aneurysm. Bilateral ophthalmic arteries patent at their origins and proximal course. Bilateral anterior and middle cerebral arteries patent. Anterior communicating artery patent. Posterior circulation demonstrates a left dominant vertebral artery. Bilateral posterior inferior cerebellar arteries, anterior inferior cerebellar arteries, superior cerebellar arteries, and posterior cerebral arteries patent. Right posterior commuting artery aplastic. Patent left posterior commuting artery. No convincing evidence of aneurysm, significant stenosis, or focal vessel occlusion. IMPRESSION: 1. No significant stenosis, aneurysm, or focal vessel occlusion. Electronically signed by: Brady Pope M.D. 08/21/2017 6:14 PM Dictated Date/Time: 08/21/2017 6:06 PM
[2017-08-21] MEDS ORDERED: CLOPIDOGREL BISULFATE 300 MG TAB PO ONE (21:00)
--- NOTE | 2017-08-21 21:46 | NUR ---
A/ID: PT ARRIVED TO UNIT AROUND THIS TIME A ROOM CHANGE. ASSESSMENT COMPLETED SEE DOCUMENTATION FOR DETAILS. GOWN CHANGED AND MONITOR APPLIED. NIH COMPLETED AND WAS SCORED A 0. PT STATES SHE CAN STILL SEE THE "BLACK DOT" IN HER LEFT EYE. NO OTHER COMPLAINTS. CALL ROSE WITHIN REACH. PENDING DISCHARGE.
[2017-08-22] VITALS (8 sets, daily range): BP systolic 86–100; BP diastolic 61–67; PULSE 75–89; TEMP 36.6–36.8; O2SAT 93–100
--- NOTE | 2017-08-22 00:01 | NUR ---
A: NO ACUTE ASSESSMENT CHANGES, CALL ROSE WITHIN REACH.
--- NOTE | 2017-08-22 04:00 | NUR ---
A: NO ACUTE ASSESSMENT CHANGES, CALL ROSE WITHIN REACH.
--- NOTE | 2017-08-22 07:31 | NUR ---
Case Management: At baseline patient resides at home with her significant other Tay and three children. Patient reports independence for all activities at baseline. She denies the use of home oxygen or assistive device. She also denies active services. Did discuss diabetes management with patient (diabetic education consultation was placed). Patient denies financial concerns regarding new medications and states that she feels she will be able to manage injections. Upon discharge patient plans to return home with self care and has denied all needs. PT/OT orders now in place - will review recommendations when available. Patient moved to room 237-1. Unit mattress spring encaser to follow.
--- NOTE | 2017-08-22 08:00 | NUR ---
Pt resting in bed comfortably. A/O x4. Denies any issues. Sinus on monitor. Lungs clear on RA. Refer to EMR for pre parole counseling aide and vitals. Call zhao within reach. Will continue to monitor.
[2017-08-22] MEDS: ASPIRIN 81 MG ECTAB PO SCH (08:22)
[2017-08-22] MEDS: DOCUSATE SODIUM 100 MG CAP PO SCH (08:22)
[2017-08-22] MEDS: METOPROLOL TARTRATE 25 MG TAB PO SCH (08:23)
[2017-08-22] MEDS: ATORVASTATIN 40 MG TAB PO SCH (08:23)
[2017-08-22] MEDS: PANTOprazole SOD 40 MG TAB PO SCH (08:24)
[2017-08-22] MEDS: TICAGRELOR 90 MG TAB PO SCH (08:24)
[2017-08-22] MEDS: INSULIN ASPART 100 UNITS/ML 3 ML PEN SC SCH ×3 (08:27→17:38)
[2017-08-22] MEDS: INSULIN GLARGINE SOLOSTAR 100 UNITS/ML 3 ML PEN SC SCH (08:27)
[2017-08-22] MEDS: NICOTINE 7 MG/24 HR TDSY TD SCH (08:28)
[2017-08-22] MEDS ORDERED: CLOPIDOGREL BISULFATE 75 MG TAB PO SCH (09:00)
--- NOTE | 2017-08-22 09:19 | Neurology Consultation ---
Neurology Consultation Date of Consultation: Aug 22, 2017. Attending Physician: Rj Delong MD, PhD Primary Care Physician: Scar Ricks D.O. Reason for Consultation: Stroke History of Present Illness Source: patient, hospital records The patient is a 47-year-old female with a chief complaint of vision loss. The patient reports that she awoke yesterday morning and perceived a dark spot in her vision, with the left eye, inferomedially. This vision disturbance has persisted and has not significantly changed. She is not aware of any particular aggravating or mitigating factors. The patient also reports associated numbness of the entire left hand extending to the wrist that was present upon awakening yesterday morning. This particular symptom resolved within about 30 minutes. She does not recall experiencing any associated weakness or loss of dexterity of the hand. She does not recall experiencing any associated numbness of the face or leg. She denies headache, vertigo, or change in speech or swallowing. The patient had presented to the emergency department on August 18 with chest pain and was diagnosed with a myocardial infarction. She underwent cardiac catheterization and deployment of the stent to the left anterior descending artery. She has had a regular cardiac rhythm. Echocardiography reveals apical akinesis and hypokinesis of several left ventricular segments. Ejection fraction 45-50%. A definitive cardioembolic source could not be determined, however. I reviewed the images as well as the radiologist's interpretation of the brain MRI completed yesterday. There is evidence of an acute punctate infarct within the right occipital lobe, shah-white junction. There is a small acute infarct within the left cerebellar hemisphere as well. There is also evidence of chronic microvascular ischemic disease. A carotid ultrasound is unremarkable. An MRA of the head is unremarkable. The left vertebral artery is dominant. Family History Family history notable for coronary artery disease and DE in the father Social History Smoking Status: Current every day smoker Smokeless Tobacco Use: No Alcohol Use: none Drug Use: none Marital Status: single Housing Status: lives with family Allergies Coded Allergies: No Known Allergies (Unverified , 08/18/17) Current Inpatient Medications Current Inpatient Medications Medications (Trade) Dose Ordered Sig/Russ Route Start Time Stop Time Status Last Admin Dose Admin Nitroglycerin (Nitrostat Tab) 0.4 mg UD PRN SL 08/18/17 23:45 09/17/17 23:44 Ondansetron HCl (Zofran Inj) 4 mg Q6H PRN IV 08/18/17 23:45 09/17/17 23:44 08/19/17 09:11 4 MG Aspirin (Ecotrin Tab) 81 mg QAM PO 08/19/17 09:00 09/18/17 08:59 08/22/17 08:22 81 MG Atorvastatin Calcium (Lipitor Tab) 80 mg QAM PO 08/19/17 09:00 09/18/17 08:59 08/22/17 08:23 80 MG Metoprolol Tartrate (Lopressor Tab) 12.5 mg Q12 PO 08/19/17 09:00 09/18/17 08:59 08/22/17 08:23 12.5 MG Lisinopril (Zestril Tab) 5 mg QAM PO 08/19/17 09:00 09/18/17 08:59 Future Hold 08/21/17 08:05 5 MG Acetaminophen (Tylenol Tab) 650 mg Q4H PRN PO 08/18/17 23:45 09/17/17 23:44 Glucose (Glucose 40% Gel) 15-30 GRAMS 15 GRAMS... UD PRN PO 08/19/17 00:30 09/18/17 00:29 Glucose (Glucose Chew Tab) 4-8 Tablets 4 Tabl... UD PRN PO 08/19/17 00:30 09/18/17 00:29 Dextrose (Dextrose 50% 50ML Syringe) 25-50ML OF 50% DW IV FOR... UD PRN IV 08/19/17 00:30 09/18/17 00:29 Glucagon (Glucagon Inj) 1 mg UD PRN SQ 08/19/17 00:30 09/18/17 00:29 Nicotine (Nicoderm Cq 7 Mg Patch) 1 patch QAM TD 08/19/17 09:00 09/18/17 08:59 08/22/17 08:28 1 PATCH Miscellaneous (Remove Nicoderm Patch) 1 ea HS N/A 08/19/17 21:00 09/18/17 20:59 08/20/17 21:03 1 EA Insulin Glargine (Lantus Solostar Pen) 10 units BID SC 08/19/17 09:00 09/18/17 08:59 08/22/17 08:27 10 UNITS Insulin Aspart (novoLOG ASPART) SLIDING SCALE G... ACHS SC 08/19/17 16:00 09/18/17 15:59 08/22/17 08:27 3 UNITS Docusate Sodium (coLACE CAP) 100 mg BID PO 08/19/17 21:00 09/18/17 20:59 08/22/17 08:22 100 MG Pantoprazole Sodium (Protonix Tab) 40 mg QAM PO 08/21/17 09:00 09/20/17 08:59 08/22/17 08:24 40 MG Miscellaneous Information (Pharmacist Discharge Med Rec Consult) 1 ea UD PRN N/A 08/21/17 13:00 09/20/17 12:59 Ticagrelor (Brilinta Tab) 90 mg BID PO 08/21/17 21:00 09/20/17 20:59 08/22/17 08:24 90 MG Review of Systems Constitutional: No fever or chills Eyes: As per history of present illness ENT: No vertigo or hearing loss Cardiovascular no chest pain or palpitations at this time, otherwise as per history of present illness Respiratory: No coughing wheezing or shortness of breath Neurological: As per history of present illness Musculoskeletal: No myalgias or arthralgias A full 10 point review of systems was obtained from this patient with pertinent positives and negatives as described in history of present illness and otherwise listed above. All remaining systems reviewed and are negative. Physical Exam Vital Signs (Past 24 Hrs): Date Time Temp Pulse Resp B/P (MAP) Pulse Ox O2 Delivery O2 Flow Rate FiO2 08/22/17 08:04 36.6 88 18 86/61 (69) 93 Room Air 08/22/17 04:00 36.6 81 17 95/63 (74) 97 Room Air 08/22/17 04:00 Room Air 08/21/17 23:59 Room Air 08/21/17 23:28 80 98/66 (77) 08/21/17 23:25 36.9 77 16 92/54 (67) 98 Room Air 08/21/17 20:00 36.7 85 20 87/56 (66) 96 Room Air 08/21/17 20:00 Room Air 08/21/17 16:00 36.7 85 20 95/64 (74) 96 Room Air 08/21/17 16:00 Room Air 08/21/17 12:00 Room Air 08/21/17 12:00 36.7 94 20 116/67 (83) 96 Room Air The patient is a well-developed well-nourished middle-aged female. She is sitting up comfortably in bed. The patient is alert and oriented to person place and time. Recent and remote memory intact. Attention and concentration normal. Patient exhibits a normal spontaneous speech pattern and age appropriate fund of knowledge. Visual hood full to confrontation. Visual acuity normal. Pupils equal round reactive to light and accommodation. Eye movements normal. Facial sensation intact bilaterally. There is no facial droop or asymmetry. Hearing intact to finger rub bilaterally. Palate elevates to midline. Shoulder shrug strength intact. Tongue protrudes to midline. Sensory examination reveals a mild deficit to vibration at the ankles bilaterally. Other modalities including light touch, temperature, and proprioception are intact throughout. Deep tendon reflexes are diminished for the arms and legs in a symmetric fashion. Plantar responses downgoing bilaterally. There is no dysdiadochokinesia or dysmetria finger to nose or heel to l[place] bilaterally. Ophthalmoscopic examination reveals normal-appearing optic disks and posterior segments. No papilledema or hemorrhages. Carotid pulses normal bilaterally, no bruits to auscultation. Gait and station not tested due to safety concerns. Muscle strength and tone normal for the arms and legs bilaterally. No atrophy. No abnormal movements appreciated. Laboratory Results Past 24 Hours: Test 08/22/17 06:50 Bedside Glucose 110 mg/dl (70-90) Impression This is a 47-year-old female who awoke yesterday morning with a small inferomedial field loss to the left eye and associated numbness of the left hand. Her numbness has resolved although the visual field loss has persisted. A brain MRI completed yesterday does reveal a small, acute, punctate infarct within the right occipital lobe at the shah-white junction and another small acute punctate infarct within the left cerebellar hemisphere. I suspect her persistent visual field loss is related to the acute right occipital lobe infarct. However, I'm unable to completely exclude ischemic damage to the left retina. I do not find any evidence of ataxia or other signs on her neurological examination that would relate to the small acute left cerebellar infarct. The resolved left hand numbness may have been due to a resolved small ischemic focus within the right parietal lobe. There is no associated ischemic injury on MRI, however, that would explain this symptom. The etiology of this patient's acute embolic stroke is not completely certain. The event occurred several days after cardiac catheterization with deployment of the stent to the LAD in the context of myocardial infarction. She does have an akinetic apex and several hypokinetic left ventricular segments on echocardiography. The event could be considered either a complication of cardiac catheterization (although delayed) or possibly cardioembolic due to cardiac akinesia/hypokinesia with thrombus formation. However, a cardioembolic event seems to be the more likely of the 2 scenarios. Plan Case discussed with Dr. Olvera, cardiology. Given the probability that the recent embolic stroke is cardioembolic and due to akinesis/hypokinesis of the left ventricle, anticoagulation is recommended. This patient will need to have an outpatient evaluation with ophthalmology to more fully assess her retinas and visual hood. I've no further immediate recommendations. Please contact me if I may be of further assistance.
--- NOTE | 2017-08-22 09:56 | Cardiology Follow-Up ---
Subjective Subjective Date of Service: Aug 22, 2017. Pt evaluation today including: conversation w/ patient, conversation w/ family , physical exam, chart review, lab review, review of studies, conversation w/ vocational rehab consultant, review of inpatient medication list Additional Details: Feeling well. No chest pain. No shortness of breath overnight. Left hand numbness/weakness has improved. Still sees dark in visual field. No other new concerns Tele reviewed-sinus rhythm, no events overnight Review of Systems Constitutional: No fever, No chills, No sweats, No weight loss, No weakness, No fatigue, No problem reported Eyes: No worsening of vision, No eye pain, No redness, No discharge, No diplopia ENT: No hearing loss, No unusual epistaxis, No nasal symptoms, No sore throat, No tinnitus, No dental problems, No trouble swallowing Respiratory: No cough, No sputum, No wheezing, No shortness of breath, No dyspnea on exertion, No dyspnea at rest, No hemoptysis Cardiac: No chest pain, No orthopnea, No PND, No edema, No claudication, No palpitations Abdomen: No pain, No nausea, No vomiting, No diarrhea, No constipation Musculoskeletal: No joint pain, No muscle pain, No swelling, No calf pain Female : No dysuria, No urinary frequency, No hematuria, No incontinence, No abnormal vaginal bleeding, No vaginal discharge Neurologic: No memory loss, No paralysis, No weakness, No numbness/tingling, No vertigo, No balance problems Psychiatric: No depression symptoms, No anhedonism, No anxiety, No insomnia, No substance abuse Heme: No abnormal bleeding/bruising, No clotting problems, No swollen lymph nodes, No night sweats Endo: No fatigue, No excessive thirst, No excessive urination Skin: No rash, No itch, No new/changing skin lesions, No color change, No bleeding Objective Vital Signs Last Vital Signs Documentation Date Time Temp Pulse Resp B/P (MAP) Pulse Ox O2 Delivery O2 Flow Rate FiO2 08/22/17 08:04 36.6 88 18 86/61 (69) 93 Room Air 08/22/17 08:00 2.0 Physical Exam: General Appearance: no apparent distress ENT: normal ENT inspection Neck: no JVD Respiratory/Chest: lungs clear, normal breath sounds Cardiovascular: regular rate, rhythm, no edema, no murmur Abdomen: normal bowel sounds, non tender, soft Extremities: normal inspection, no pedal edema, no calf tenderness, + pertinent finding (no right radial artery access site complications. ) Neurologic/Psychiatric: alert, normal mood/affect, oriented x 3 Skin: normal color, warm/dry, no rash Assessment and Plan 1. Anterior STEMI s/p PPCI with CR to proximal LAD 2. Residual small vessel CAD 3. Apical akinesis LV dysfunction 4. Suspected cardioembolic CVA 5. Poorly controlled diabetes 6. Hypertension Patient transient left numbness/weakness yesterday and persistent visual field defect Brain MRI showed bilateral acute punctate infarcts Concern for cardioembolic source and LV thrombus in the setting apical akinesis/ LAD distribution wall motion abnormality Reviewed patient's echocardiogram from yesterday. No clear thrombus could not definitively rule out--> would recommend treating as if LV thrombus with anticoagulation. --plan to start Eliquis 5 milligrams b.i.d. likely for the next 3 months. --continue dual antiplatelet therapy--switch ticagrelor to clopidogrel, give 75 milligrams today --continue current beta-migel, high-intensity statin --in the setting of relatively low blood pressures, recent CVA okay to hold lisinopril. Will plan to restart at some point as an outpatient -- medical management residual CAD From a cardiac standpoint okay for discharge today and can follow-up with me in 2-3 weeks Continued [facility] stay due to: multiple IV medications needed Discharge planning: home Medications: Current Inpatient Medications Medications (Trade) Dose Ordered Sig/Russ Route Start Time Stop Time Status Last Admin Dose Admin Nitroglycerin (Nitrostat Tab) 0.4 mg UD PRN SL 08/18/17 23:45 09/17/17 23:44 Ondansetron HCl (Zofran Inj) 4 mg Q6H PRN IV 08/18/17 23:45 09/17/17 23:44 08/19/17 09:11 4 MG Aspirin (Ecotrin Tab) 81 mg QAM PO 08/19/17 09:00 09/18/17 08:59 08/22/17 08:22 81 MG Atorvastatin Calcium (Lipitor Tab) 80 mg QAM PO 08/19/17 09:00 09/18/17 08:59 08/22/17 08:23 80 MG Metoprolol Tartrate (Lopressor Tab) 12.5 mg Q12 PO 08/19/17 09:00 09/18/17 08:59 08/22/17 08:23 12.5 MG Lisinopril (Zestril Tab) 5 mg QAM PO 08/19/17 09:00 09/18/17 08:59 Future Hold 08/21/17 08:05 5 MG Acetaminophen (Tylenol Tab) 650 mg Q4H PRN PO 08/18/17 23:45 09/17/17 23:44 Glucose (Glucose 40% Gel) 15-30 GRAMS 15 GRAMS... UD PRN PO 08/19/17 00:30 09/18/17 00:29 Glucose (Glucose Chew Tab) 4-8 Tablets 4 Tabl... UD PRN PO 08/19/17 00:30 09/18/17 00:29 Dextrose (Dextrose 50% 50ML Syringe) 25-50ML OF 50% DW IV FOR... UD PRN IV 08/19/17 00:30 09/18/17 00:29 Glucagon (Glucagon Inj) 1 mg UD PRN SQ 08/19/17 00:30 09/18/17 00:29 Nicotine (Nicoderm Cq 7 Mg Patch) 1 patch QAM TD 08/19/17 09:00 09/18/17 08:59 08/22/17 08:28 1 PATCH Miscellaneous (Remove Nicoderm Patch) 1 ea HS N/A 08/19/17 21:00 09/18/17 20:59 08/20/17 21:03 1 EA Insulin Glargine (Lantus Solostar Pen) 10 units BID SC 08/19/17 09:00 09/18/17 08:59 08/22/17 08:27 10 UNITS Insulin Aspart (novoLOG ASPART) SLIDING SCALE G... ACHS SC 08/19/17 16:00 09/18/17 15:59 08/22/17 08:27 3 UNITS Docusate Sodium (coLACE CAP) 100 mg BID PO 08/19/17 21:00 09/18/17 20:59 08/22/17 08:22 100 MG Pantoprazole Sodium (Protonix Tab) 40 mg QAM PO 08/21/17 09:00 09/20/17 08:59 08/22/17 08:24 40 MG Miscellaneous Information (Pharmacist Discharge Med Rec Consult) 1 ea UD PRN N/A 08/21/17 13:00 09/20/17 12:59 Ticagrelor (Brilinta Tab) 90 mg BID PO 08/21/17 21:00 09/20/17 20:59 08/22/17 08:24 90 MG Lab Results: Test 08/22/17 06:50 Bedside Glucose 110 mg/dl (70-90)
[2017-08-22] MEDS ORDERED: APIXABAN 2.5 MG TAB PO ONE (11:30)
--- NOTE | 2017-08-22 12:52 | NUR ---
Pt resting in bed comfortably.A/O x4. Denies any issues. Sinus on monitor. Lungs clear on RA. 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 Will continue to monitor.
[2017-08-22] MEDS ORDERED: ASPI-320 PO (15:42)
[2017-08-22] MEDS ORDERED: LPT40 PO (15:42)
[2017-08-22] MEDS ORDERED: APIX1TAB3 PO (15:42)
[2017-08-22] MEDS ORDERED: GLC/500 PO (15:42)
[2017-08-22] MEDS ORDERED: LPR25 PO (15:42)
[2017-08-22] MEDS ORDERED: CLOP1TAB5 PO (15:42)
[2017-08-22] MEDS ORDERED: PANT40TA PO (15:47)
--- NOTE | 2017-08-22 16:10 | Discharge Summary ---
Discharge Summary Date of Service Aug 22, 2017. (Shereen Hurt CRNP) Discharge Summary Admission Date: Aug 18, 2017 at 23:50 Discharge Date: Aug 21, 2017 Discharge Disposition: Home Principal Diagnosis: STEMI, CVA Problems/Secondary Diagnoses: DMII Procedures: Carotid US IMPRESSION: 1. There is no sonographic evidence of hemodynamically significant stenosis in the right or left carotid arterial system. 2. Antegrade flow is shown in the vertebral arteries. Head MRA IMPRESSION: 1. No significant stenosis, aneurysm, or focal vessel occlusion. Brain MRI IMPRESSION: 1. Punctate acute infarcts seen within the left cerebellar hemisphere and right occipital lobe. 2. Scattered foci of T2 hyperintensity seen within the white matter of the supratentorial brain. This is slightly greater than expected for age. This could be due to microvascular ischemic change but may also be seen in the setting of multiple sclerosis, Lyme disease, or a vasculitis. 3. Of note, the patient was unable to complete the entire examination CXR IMPRESSION: Negative chest. (Shereen Hurt CRNP) Problems/Secondary Diagnoses: HTN hyperlipidemia acute systolic CHF 2nd to acute MN Procedures: echocardiogram #1: -- Conclusions -- * 1. Normal LV size and wall thickness. * 2. LVEF 40-45%. Severe hypokinesis involving mid anterior, anteroseptum and septal thornton. Apical akinesis. * 3. Normal RV size and function. * 4. No significant valvular pathology. * 5. Normal estimated PA pressure. Est RA 8 mmHg. * 6. No prior studies for comparison. echocardiogram #2: * Mild left ventricular systolic dysfunction. * Apical akinesis of the left ventricle. Hypokinesis of the mid anterior, anterior septal, and anterior LV segments. * Normal right ventricular size and systolic function. * Normal chamber dimensions. * No significant valvular abnormalities. * No evidence of intracardiac shunt. * No conclusive evidence of a cardioembolic source. cardiac catheterization - Mario Olvera MD Findings: LM - Angiographically normal LAD - 100% occluded proximally; post-intervention - only luminal irregularities distally. Circumflex - Large caliber vessel which gives off large OM2. Distal segment small with focal 80-90% stenosis before L-PLB. Distal OM2 small with 90% focal stenosis. RCA - Dominant, moderate caliber, distal luminal irregularities. R-PDA small with moderate diffuse distal disease. LVEDP - 11 LV gram (limited) - LVEF 45%, 1+ MR -- PCI -- Antithrombotic therapy: Heparin, Ticagrelor Procedure: LM cannulated with EBU 3.5 guide Prowater wire passed across lesion into distal vessel Proximal LAD lesion predilated with 2.5 compliant balloon Dilated lesion stented with 3.0 x 18 Xience CR Stent post-dilated with 3.25 noncompliant balloon IC vasodilators administered for spasm Post procedure MARCO ANTONIO 3 flow, stent well expanded with minimal residual stenosis and no apparent cardiac complications. (Phil Plaza MD) Medication Reconciliation New Medications: Apixaban (Eliquis) 5 Mg Tab 5 MG PO BID for 30 Days, #60 TAB Clopidogrel Bisulfate (Plavix) 75 Mg Tab 75 MG PO DAILY for 30 Days, #30 DOSE Glucostix Blood Test Strips (eMithilaHaat Ultra Control) 1 Ea Strp TU SC QID, #120 Metformin Hcl (Glucophage) 500 Mg Tab 500 MG PO BID for 30 Days, #60 DOSE Pantoprazole Sodium (Protonix) 40 Mg Tab 1 TAB PO DAILY for 30 Days, #30 TAB 5 Refills [insu] () Aspirin (Aspirin EC Low Dose) 81 Mg Ectab 81 MG PO QAM for 30 Days, #30 TABS Atorvastatin (Atorvastatin Calcium) 40 Mg Tab 80 MG PO QAM for 30 Days, #60 DOSE Insulin Glargine (Lantus Solostar) 100 Unit/Ml Inj 10 UNITS SC BID for 30 Days, #1 PEN 3 Refills Metoprolol Tartrate (Lopressor) 25 Mg Tab 12.5 MG PO Q12 for 30 Days, #30 DOSE Nitroglycerin (Nitrostat) 0.4 Mg/1 Tab Subl 0.4 MG SL UD PRN for Chest Pain for 30 Days, #1 BTL Discharge Exam ROS Eye: area of loss of vision in left eye Constitutional: no chills, aches, sweats or fever Respiratory: no sob,cough, sputum, or wheezing Cardiac: no chest pain, palpitations, edema, orthopnea or lightheadedness GI: no abdominal pain, nausea, vomiting, diarrhea or constipation : no dysuria or hesitancy Extremities: no joint pain or weakness Skin: no rash PE General: no distress Eyes: normal inspection, PERLL Respiratory: chest non tender, clear to auscultation, normal breath sounds, no respiratory distress, no accessory muscle use Cardiac: regular rate and rhythm, no rub or gallop, no murmur, no edema, no jvd GI/: active bowel sounds, no abd pain or tenderness, soft, non distended Extremities: normal range of motion, normal strength, non tender Neuro/Psych: alert and oriented x 3, normal mood and affect Skin: normal color, dry (Shereen Hurt CRNP) Hospital Course 47 y/o F Hx DM, HTN, smoker here for emergent catheterization for anterior STEMI. The morning of 08/21 she developed an area of visual loss and transient left hand numbness. A stroke alert was not called as patient was 5 hours out from last known well but neurology was consulted and case discussed. MRI showed two punctuate lesions in the right occipital and left cerebellar regions. STEMI/ HTN - post single CR to prox LAD 08/19 - Placed on metoprolol, Brilinta, ASA, Statin, switched to plavix from Brilinta for discharge - Troponins peaked at 85 - NELSON was held due to CVA, consider initiating at a later date CVA - Per neurology she was ordered carotid dopplers which did not show any areas of significant stenosis, and MRA which did not show any acute changes - We repeated echo with bubble study, no shunt or thrombus was found, however both neurology and cardiology agreed that it is likely a cardioembolic event stemming from akinesis that developed post MN rather than complication of cardiac catheterization. Because of this, anticoagulation was initiated with Eliquis 5 mg bid and she will likely need to continue for at least 3 months. There was no atrial fibrillation seen on telemetry during her stay. - stroke protocol - PT/OT DM - hyperglycemia without DKA - Patient apparently had not taken any diabetic medications for the last four or five years and presented with blood sugar near 400. She was briefly placed on an insulin drip. - A1c 13.3 - sliding scale and lantus while in patient - will d/c with metformin and lantus and she will see endocrinology in September - diabetes education provided Current smoker - nicotine patch - smoking cessation education provided Total Time Spent: Less than 30 minutes This includes examination of the patient, discharge planning, medication reconciliation, and communication with other providers. (Shereen Hurt CRNP) Attending Attestation & D/C note: Pt seen/examined, chart reviewed, discharge care plan d/w ADRIAN Hurt. I agree w/ the rosa components of her documentation. 47yo female with history of T2DM, HTN and hyperlipidemia who presented with STEMI. Culprit lesion was a 100% occluded proximal LAD. Dr. Mario Olvera, cardiology, performed her heart catheterization and successfully stented the LAD lesion with a drug-eluting stent. On the AM of 08/21/17 the patient mentioned a black "dot" in her visual field and transient left hand numbness. MRI brain showed 2 small, punctate strokes - left cerebellum & right occipital lobe. Her neuro exam was largely normal. Seen in consult by neurology who felt this was cardioembolic in origin likely in the setting of akinesis of the left ventricle from the recent MN. Systemic anticoagulation was recommended. Patient will d/c home on low-dose asa, plavix, beta migel, statin for her CAD. Eliquis 5mg BID was recommended due to the stroke. Because of high risk of GI bleeding PPI was recommended for GI prophylaxis. Discharge exam - gen - NAD eyes - visual hood full by direct confrontation neck - no JVD heart - RRR, s1, s2, no murmur lungs - CTA b/l abd - soft, NT ext - no edema neuro - strength 5/5 x 4 exts; speech normal; no facial droop She will f/u with her PCP, cardiology, and ophthomology after discharge. Phil Plaza MD of note- total discharge time was about 45 minutes (Phil Plaza MD) Discharge Instructions Please refer to the electronic Patient Visit Report (Discharge Instructions) for additional information. (Shereen Hrut CRNP) Follow-Up Dr. Tay Ricks at the [facility] Office on FridayAugust 27 at 12:30 pm. FridayAugust 27 at 2:[address] Rodrigo Ricks. [facility] Cardiology Office with Dr. Mario Olvera on FridaySeptember 02 at 11:00 am (arrive at 10:40 am). [facility] Neurology Office with Malathi Orozco PA-C on FridaySeptember 12 at 10:00 am (arrive 9:45 am). (Shereen Hurt CRNP) Additional Copies To Malathi Orozco; Mario Olvera MD; Scar Ricks D.O.
--- NOTE | 2017-08-22 16:37 | Pharmacy Progress Note ---
Pharmacist Stroke Counseling Date of Service Aug 22, 2017. Scope Pharmacy has been consulted to provide medication discharge counseling for this patient admitted with ischemic stroke/hemorrhagic stroke/ transient ischemic attack as per the Pharmacist Discharge Counseling for Stroke Patients Protocol. Medications on Discharge New Medications: Apixaban (Eliquis) 5 Mg Tab 5 MG PO BID for 30 Days, #60 TAB Clopidogrel Bisulfate (Plavix) 75 Mg Tab 75 MG PO DAILY for 30 Days, #30 DOSE Glucostix Blood Test Strips (Onetouch Ultra Control) 1 Ea Strp TU SC QID, #120 Metformin Hcl (Glucophage) 500 Mg Tab 500 MG PO BID for 30 Days, #60 DOSE Pantoprazole Sodium (Protonix) 40 Mg Tab 1 TAB PO DAILY for 30 Days, #30 TAB 5 Refills [insu] () Aspirin (Aspirin EC Low Dose) 81 Mg Ectab 81 MG PO QAM for 30 Days, #30 TABS Atorvastatin (Atorvastatin Calcium) 40 Mg Tab 80 MG PO QAM for 30 Days, #60 DOSE Insulin Glargine (Lantus Solostar) 100 Unit/Ml Inj 10 UNITS SC BID for 30 Days, #1 PEN 3 Refills Metoprolol Tartrate (Lopressor) 25 Mg Tab 12.5 MG PO Q12 for 30 Days, #30 DOSE Nitroglycerin (Nitrostat) 0.4 Mg/1 Tab Subl 0.4 MG SL UD PRN for Chest Pain for 30 Days, #1 BTL Action The above medications, specifically ones for stroke treatment/prophylaxis, have been reviewed in detail with the patient and/or patient tax representative(s) prior to discharge. This includes indication, common adverse reactions, drug interactions, and medication administration. Medication counseling has been employed using the teach-back method to ensure understanding. Outcome The patient and/or patient tax representative(s) have demonstrated understanding of the medications. Please note, they are aware that the pharmacist will call them within 72 hours post-discharge to confirm that the appropriate medications are being taken and answer any further medication related questions the patient might have at that time. Contact information Individual to be contacted: Mariana Relationship to patient (if applicable): patient Phone number: [phone] Best time to call: anytime Additional comments: Provided discharge instructions today to patient. Patient anxious to get home. Did not have any questions at this time. Aware that we will be calling her post discharge. Thank you for allowing pharmacy to be involved in the care of this patient. Please call [phone] or [phone] with any additional questions
--- NOTE | 2017-08-22 19:23 | NUR ---
A: PT DISCHARGED AROUND THIS TIME. PT TAKEN DOWN VIA WHEELCHAIR TO MEET SON AT FRONT DOOR. PT DISCHARGED BY DAYSHIFT RN AND SENT WITH ALL BELONGINGS.
[2017-08-22] MEDS ORDERED: APIXABAN 2.5 MG TAB PO SCH (21:00)
[2017-08-23] MEDS ORDERED: CLOPIDOGREL BISULFATE 75 MG TAB PO SCH (09:00)
[2017-08-25 11:46] VITALS: Ht 160 cm; Wt 75.2 kg
--- NOTE | 2017-08-25 11:54 | NUR ---
DIABETES Spoke with pt via telephone following discharge on Friday. Please see [facility]: Inpatient Teaching Record for additional information. Addendum: 08/25/17 at [address] Amended: Links added.
--- NOTE | 2017-08-25 12:14 | NUR ---
settlement processor [facility]: Received notification from Brandi ROBIN that a script for the wrong type of test strips was sent to the [facility]. The pt requires One Touch Verio test strips NOT One Touch Ultra. I contact [facility] and made the correction. I also notified Shereen CAMPBELL. Addendum: 08/25/17 at 1325 by Lia ESPINOSA Brandi Bishop notifies me that pt also needs One Touch Delica lancets. I contact Shereen CAMPBELL and get authorization to phone pharmacy for the lancets quantity of #100. I phoned to [facility] and left this info on their voicemail along w/ my contact info in case they have any questions. Addendum: 08/25/17 at 1343 by [employer] [facility] called and said that One Touch Verio test strips will require a prior authorization. I call [facility] at [phone] w/ ID # [id number] and explain that the pt's old One Touch Ultra doesn't work so she needed a new monitor and new strips - approved. I called [facility] and they are now able to process them. Addendum: 08/25/17 at 1346 by [employer] I call patient and inform her that she can pick them up later. Addendum: 08/27/17 at 1044 by [employer] Pt calls in and states that pharmacy could not fill script for needles for insulin pen - no quantity. I call the [facility] and inform them quantity of #100 - Shereen CAMPBELL aware. I provide the pharmacist w/ my direct number should she have any more questions.
--- NOTE | 2017-08-25 14:05 | Pharmacy Progress Note ---
Pharmacist Post D/C Phone Note Date of phone call: Aug 25, 2017. Individual with whom pharmacist spoke to: [Patient] The following questions were reviewed during the phone call with responses listed below each: Can you tell me the medications that you are currently taking as well as when and how you take each medication? - Patient reviewed the medication list from the hospital. When have you missed any doses of your medications? - Patient says she has not missed any doses of the medications What side effects are you having from your medications? - Pt reports she did have a nose bleed on Friday but bleeding was limited and it stopped shortly after starting. Instructed patient to call doctor or go to Emergency department if she experiences any heavy bleeding What questions do you have about your medications? - Patient had a lisinopril prescription called in but was not on the medication list from the hospital. She is currently not taking it. Instructed patient to follow-up with PCP via telephone today or at doctor's appointment on Friday at very latest to determine if she needs to start this medication. What problems are you having obtaining your medications? - Pt reports that she has not had issues other than wrong test strips. Correct test strips were called in today per recent coordinator note. When is your next appointment with your primary care doctor? - Appointment is FridayAugust 27 Additional comments: - As per the Pharmacist Discharge Counseling for Stroke Patients Protocol, this phone call has been completed within 72 hours of discharge. Thank you for allowing us to be involved in the care of this patient.
[2018-02-27] MEDS ORDERED: ISR5 PO (14:27)
== END 2017-08-22 19:23 | disposition home or self-care (01) | DRG 246 ==
LOC: C.EDB 21:54 → C.MSICU 22:52 → ENRESERV 08-21 21:35 → C.2T 08-21 21:50
PROVIDERS: ADMIT Internal Medicine Interventional Cardiology; ATTEND Internal Medicine
PROC: 027034Z Dilation of Coronary Artery, One Artery with Drug-eluting Intraluminal Device, Percutaneous Approach (ICD-10-PCS; principal; 2017-08-18 22:35)
PROC: B211YZZ Fluoroscopy of Multiple Coronary Arteries using Other Contrast (ICD-10-PCS; principal; 2017-08-18 22:35)
PROC: 4A023N7 Measurement of Cardiac Sampling and Pressure, Left Heart, Percutaneous Approach (ICD-10-PCS; principal; 2017-08-18 22:35)
DX: I21.09 ST elevation (STEMI) myocardial infarction involving other coronary artery of anterior wall (principal); I63.9 Cerebral infarction, unspecified; E11.65 Type 2 diabetes mellitus with hyperglycemia; H53.8 Other visual disturbances; R20.0 Anesthesia of skin; R29.700 NIHSS score 0; I25.10 Atherosclerotic heart disease of native coronary artery without angina pectoris; I11.0 Hypertensive heart disease with heart failure; F17.200 Nicotine dependence, unspecified, uncomplicated; Z79.899 Other long term (current) drug therapy; Z82.49 Family history of ischemic heart disease and other diseases of the circulatory system

== ENCOUNTER → 2017-09-15 | Outpatient (CLI) | payer OTHER ==
[~2017-09-15] MED LIST changes: +APIX1TAB3 PO; +ASPEC81 PO; +CLOP1TAB5 PO; +FSTTS SC; -GLIP5TAB11 PO; -IBUP-103 PO; +INSDGIPEN SC; +LPR25 PO; +LPT40 PO; -METH4PAK PO; +NTRSLP4 SL; +PANT40TA PO; +insu
== END | disposition home or self-care (01) ==
LOC: C.LAB1850 11:52
PROVIDERS: ATTEND Physician Assistant
DX: I50.20 Unspecified systolic (congestive) heart failure (principal)

== ENCOUNTER 2017-10-11 00:02 | Emergency (ER) | payer OTHER ==
[~2017-10-11] VITALS: Ht 160 cm; Wt 78.2 kg
[~2017-10-11 00:02] MED LIST changes: -APIX1TAB3 PO; -ASPEC81 PO; +ASPI-320 PO
[2017-10-11 00:05] VITALS: TEMP 36.9; Ht 160 cm; Wt 78.2 kg
[2017-10-11 00:21] VITALS: O2SAT 97
[2017-10-11 00:29] LABS: BASO % 0.3 %; BASO ABS # 0.03 K/uL (0-0.2); EOS % 1.6 %; EOS ABS # 0.18 K/uL (0-0.5); HEMATOCRIT 32.6 % (37-47); HEMOGLOBIN 11.1 g/dL (12.0-16.0); IG# 0.02 K/uL (0.00-0.02); LYMPH % 21.1 %; LYMPH ABS # 2.36 K/uL (1.2-3.4); MEAN CELL VOLUME 84.7 fL (80-100); MEAN CORPUSCULAR HEMOGLOBIN 28.8 pg (25-34); MEAN PLATELET VOLUME 9.4 fL (7.4-10.4); MONO % 4.5 %; NEUT % 72.3 %; NEUT ABS # 8.11 K/uL (1.4-6.5); PLATELET COUNT 238 K/uL (130-400); RED CELL DISTRIBUTION WIDTH CV 12.9 % (11.5-14.5); RED CELL DISTRIBUTION WIDTH SD 39.6 fL (36.4-46.3)
[2017-10-11 00:53] LABS: ALBUMIN 2.9 gm/dl (3.4-5.0); ALT/SGPT 20 U/L (12-78); AST/SGOT 9 U/L (15-37); BLOOD UREA NITROGEN 17 mg/dl (7-18); CALCIUM 8.6 mg/dl (8.5-10.1); CARBON DIOXIDE 32 mmol/L (21-32); CREATININE 0.88 mg/dl (0.60-1.20); GLUCOSE 293 mg/dl (70-99); LIPASE 148 U/L (73-393); POTASSIUM 3.4 mmol/L (3.5-5.1); SODIUM 137 mmol/L (136-145)
[2017-10-11 00:58] LABS: ALKALINE PHOSPHATASE 143 U/L (45-117); TOTAL PROTEIN 7.9 gm/dl (6.4-8.2)
[2017-10-11] MEDS ORDERED: APIX1TAB3 PO (01:31)
[2017-10-11] MEDS ORDERED: FURO-85 PO (01:31)
[2017-10-11] MEDS ORDERED: KETOROLAC TROMETHAMINE 30 MG/ML VIAL IV STA (02:56)
--- NOTE | 2017-10-11 03:00 | EMERGENCY ROOM VISIT NOTE ---
History First contact with patient: 00:07 Chief Complaint: CARDIAC ASSESSMENT Stated Complaint: NECK TO HAND ON LEFT SIDE TINGLY/NUMB,CARDIAC HX History of Present Illness The patient is a 47 year old female who presents to the Emergency Room with complaints of neck pain that radiates down her left arm described as tingling that has been intermittent for the past day that has been constant since 3 PM today. Patient had a heart attack and CVA without deficits in the past. She quit smoking 8 weeks ago when she had her heart attack. Dr. Olvera is her senior design engineering specialist. Patient states nothing makes it better or worse. Patient denies chest pain, dyspnea, weakness, back pain, jaw pain, injury to the area, abdominal pain, diaphoresis. Review of Systems See HPI for pertinent positives & negatives. A total of 10 systems reviewed and were otherwise negative. Past Medical/Surgical History Medical Problems: (1) AMI (acute myocardial infarction) (2) Angina pectoris (3) Atrial thrombus following [place] (4) Diabetes (5) GERD (gastroesophageal reflux disease) (6) HTN (hypertension) (7) Tobacco abuse Family History FH: congestive heart failure MOTHER FH: heart attack FATHER ( 72 AMI) Hypertension FATHER Kidney disease MOTHER Social History Smoking Status: Former Smoker Drug Use: none Marital Status: single Housing Status: lives with family Current/Historical Medications Scheduled Apixaban (Eliquis), 5 MG PO BID Aspirin (Aspirin EC Low Dose), 81 MG PO QAM Atorvastatin (Atorvastatin Calcium), 80 MG PO QAM Clopidogrel Bisulfate (Plavix), 75 MG PO DAILY Furosemide (Lasix), 20 MG PO DAILY Insulin Glargine (Lantus Solostar), 10 UNITS SC BID Metformin Hcl (Glucophage), 500 MG PO BID Metoprolol Tartrate (Lopressor), 12.5 MG PO Q12 Pantoprazole Sodium (Protonix), 1 TAB PO DAILY Scheduled PRN Nitroglycerin (Nitrostat), 0.4 MG SL UD PRN for Chest Pain Physical Exam Vital Signs Date Time Temp Pulse Resp B/P (MAP) Pulse Ox O2 Delivery O2 Flow Rate FiO2 10/11/17 02:00 86 16 119/70 97 Room Air 10/11/17 00:57 88 16 142/76 98 Room Air 10/11/17 00:22 90 10/11/17 00:21 97 Room Air 10/11/17 00:05 36.9 95 18 137/81 99 Room Air Physical Exam VITALS: Vitals are noted on the nurse's note and reviewed by myself. Vital signs stable. GENERAL: Pleasant female, in no acute distress, nondiaphoretic, well-developed well-nourished. SKIN: The skin was without rashes, erythema, edema, or bruising. There is no tenting of the skin. Capillary reflex less than 2 seconds. HEAD: Normocephalic atraumatic. EARS: External auditory canals clear, tympanic membranes pearly shah without erythema or effusion bilaterally. EYES: Pupils equal round and reactive to light and accommodation. Conjunctivae without injection, sclerae without icterus. Extraocular movements intact. NOSE: Patent, turbinates without inflammation or discharge. MOUTH: Mucous membranes moist. Pharynx without erythema or exudate. Uvula midline. Airway patent. Tongue does not deviate. NECK: Supple without nuchal rigidity. No lymphadenopathy. No thyromegaly. Cervical spine is nontender. No JVD. HEART: Regular rate and rhythm LUNGS: Clear to auscultation bilaterally without wheezes, rales or rhonchi. No dullness to percussion. No retractions or accessory muscle use. ABDOMEN: Positive bowel sounds x 4. Normal tympanic percussion. Soft, nontender, without masses or organomegaly. Hernandez sign negative. No guarding or rebound tenderness. MUSCULOSKELETAL: No muscle atrophy, erythema, or edema noted. 5 out of 5 strength throughout. NEURO: Patient was alert and oriented to person place and time. Normal sensation to light and sharp touch. No focal neurological deficits. Cranial nerves II-12 grossly intact. No pronator drift. Cerebellar exam intact. Medical Decision & Procedures Laboratory Results 10/11/17 00:20 Red Blood Count 3.85, Mean Corpuscular Volume 84.7, Mean Corpuscular Hemoglobin 28.8, Mean Corpuscular Hemoglobin Concent 34.0, Mean Platelet Volume 9.4, Neutrophils (%) (Auto) 72.3, Lymphocytes (%) (Auto) 21.1, Monocytes (%) (Auto) 4.5, Eosinophils (%) (Auto) 1.6, Basophils (%) (Auto) 0.3, Neutrophils # (Auto) 8.11, Lymphocytes # (Auto) 2.36, Monocytes # (Auto) 0.50, Eosinophils # (Auto) 0.18, Basophils # (Auto) 0.03 10/11/17 00:20 Test 10/11/17 00:20 10/11/17 02:24 White Blood Count 11.20 K/uL (4.8-10.8) Red Blood Count 3.85 M/uL (4.2-5.4) Hemoglobin 11.1 g/dL (12.0-16.0) Hematocrit 32.6 % (37-47) Mean Corpuscular Volume 84.7 fL (80-100) Mean Corpuscular Hemoglobin 28.8 pg (25-34) Mean Corpuscular Hemoglobin Concent 34.0 g/dl (32-36) Platelet Count 238 K/uL (130-400) Mean Platelet Volume 9.4 fL (7.4-10.4) Neutrophils (%) (Auto) 72.3 % Lymphocytes (%) (Auto) 21.1 % Monocytes (%) (Auto) 4.5 % Eosinophils (%) (Auto) 1.6 % Basophils (%) (Auto) 0.3 % Neutrophils # (Auto) 8.11 K/uL (1.4-6.5) Lymphocytes # (Auto) 2.36 K/uL (1.2-3.4) Monocytes # (Auto) 0.50 K/uL (0.11-0.59) Eosinophils # (Auto) 0.18 K/uL (0-0.5) Basophils # (Auto) 0.03 K/uL (0-0.2) RDW Standard Deviation 39.6 fL (36.4-46.3) RDW Coefficient of Variation 12.9 % (11.5-14.5) Immature Granulocyte % (Auto) 0.2 % Immature Granulocyte # (Auto) 0.02 K/uL (0.00-0.02) Anion Gap 5.0 mmol/L (3-11) Est Creatinine Clear Calc Drug Dose 77.4 ml/min Estimated GFR () 90.0 Estimated GFR (Non- 77.7 BUN/Creatinine Ratio 19.0 (10-20) Calcium Level 8.6 mg/dl (8.5-10.1) Total Bilirubin 0.2 mg/dl (0.2-1) Direct Bilirubin < 0.1 mg/dl (0-0.2) Aspartate Amino Transf (AST/SGOT) 9 U/L (15-37) Alanine Aminotransferase (ALT/SGPT) 20 U/L (12-78) Alkaline Phosphatase 143 U/L (45-117) Troponin I < 0.015 ng/ml (0-0.045) Total Protein 7.9 gm/dl (6.4-8.2) Albumin 2.9 gm/dl (3.4-5.0) Lipase 148 U/L (73-393) Human Chorionic Gonadotropin, Qual NEG (NEG) Bedside Troponin I < 0.030 ng/ml (0-0.045) ED Course Prior records/ancillary studies reviewed. Triage Nursing notes reviewed. Additional history obtained from family. The patient's history was concerning for neck pain down left arm. Differential diagnosis: Etiologies such as cervical radiculopathy, neurological, cardiac ischemia, musculoskeletal, infections, pericarditis, myocarditis, as well as others were entertained. Physical examination: As above. ER treatment provided: Patient was observed On reassessment the patient felt better. Diagnostic interpretation by me: The electrocardiogram was normal sinus, normal intervals, Q waves in the septal leads, no acute ST-T wave changes. EKG compared to prior EKG. Impression normal sinus rhythm with Q waves in the septal leads interpreted by myself. The repeat EKG is unchanged per my interpretation. The labs revealed negative troponin 2 greater than 2 hours apart. Hyperglycemia without DKA Imaging studies: Chest x-ray with no acute consolidation, pneumothorax or free air per my interpretation. CT HEAD: MRI 08/21/2017 No intracranial hemorrhage, mass effect or CT evidence of acute infarct Ventricles are within limits and midline Visualized paranasal sinuses, mastoid and orbits are within limits CT C SPINE: No fracture or malalignment C5-6 spondylosis/discogenic change with appearance of small posterior disc osteophyte complex Radiologist: Bryan Hobbs M.D. Exam and history seem consistent with cervical radiculopathy. Patient was neurovascularly and neurologically intact.. Patient's been having constant symptoms since 3 PM. She had an unremarkable workup as above. Normal EKG. Negative troponin. She was advised follow-up family care in a few days or here in the ER sooner for severe pain, numbness, tingling, chest pain, worsening signs or symptoms or as needed. By the evaluation outlined above emergent etiologies such as cardiac ischemia, aortic dissection, pulmonary embolism, pneumonia, pneumothorax, infections, pericarditis, myocarditis, gastrointestinal, as well as others were deemed relatively unlikely. The pt informed about the findings as listed above. All questions were answered and pleased with the treatment. Return instructions were outlined and the patient was discharged in stable condition. Referral: The patient was referred back to primary care physician for follow-up in 2 to 3 days for a recheck of the current condition. Case reviewed with my attending Medical Decision As above Medication Reconcilliation Current Medication List: was personally reviewed by me Blood Pressure Screening Patient's blood pressure: Normal blood pressure Impression Primary Impression: Cervical radiculopathy Additional Impression: Hyperglycemia due to type 2 diabetes mellitus Departure Information Dispostion Home / Self-Care Referrals Scar Ricks D.O. (PCP) Patient Instructions My [facility] [employer] Additional Instructions Monitor your blood sugars. It was high today. Ibuprofen(Motrin, Advil) may be used for fever or pain. Use 600mg every six hours as needed. Take with food. Avoid using more than 2400mg in a 24 hour period. Do not use 2400mg per day for more than three consecutive days without physician direction. Prolonged inappropriate use can lead to stomach upset or ulcers. (AND/OR) Acetaminophen(Tylenol) may be used for fever or pain. Use 1000mg every six hours as needed. Avoid using more than 3000mg in a 24 hour period. Rest and drink plenty of fluids as tolerated. Continue current medications. Avoid strenuous activities and anything that worsens your pain. Resume normal activities once your symptoms resolve. Return to the ER immediately for worsening or persistent neck pain, abdominal pain, vomiting, fevers, chest pains, difficulty breathing, worsening of your condition, or as needed. Follow up with your primary physician in 2-3 days for a recheck of your current condition. Problem Qualifiers
[2017-10-11 03:04] VITALS: BP 119/70; PULSE 85; O2SAT 98
--- NOTE | 2017-10-11 06:28 | DIAGNOSTIC IMAGING REPORT ---
CHEST ONE VIEW PORTABLE CLINICAL HISTORY: 47 years-old Female presenting with CHEST PAIN. TECHNIQUE: Portable upright AP view of the chest was obtained. COMPARISON: 08/18/2017. FINDINGS: Cardiomediastinal silhouette normal. Mildly low lung volumes with hypoventilatory changes. No focal infiltrate. No large effusion or pneumothorax. Degenerative changes of the thoracic spine. Cholecystectomy clips noted. External leads overlie the upper abdomen degrading evaluation. IMPRESSION: 1. Mildly low lung volumes with hypoventilatory changes. Electronically signed by: Brady Pope M.D. 10/11/2017 6:27 AM Dictated Date/Time: 10/11/2017 6:26 AM
--- NOTE | 2017-10-11 07:05 | DIAGNOSTIC IMAGING REPORT ---
HEAD WITHOUT CONTRAST (CT) CLINICAL HISTORY: 47 years-old Female presenting with pain/numbness neck down left arm. TECHNIQUE: Multidetector CT imaging of the head was performed without the use of intravenous contrast. IV contrast: None. A dose lowering technique was used consistent with the principles of ALARA (as low as reasonably achievable). COMPARISON: MR brain from 08/21/2017. CT DOSE (mGy.cm): The estimated cumulative dose is 973.99 mGy.cm. FINDINGS: Tar And Ammonia Pump Operator topogram: The patient is edentulous. Ventricles and sulci normal in size. Brain parenchyma normal in appearance with preserved shah-white differentiation. No mass effect or midline shift. No hemorrhage or acute territorial infarct. No extra-axial fluid collection. Paranasal sinuses and mastoid air cells clear. Calvarium intact. IMPRESSION: 1. No acute intracranial abnormality. Electronically signed by: Brady Pope M.D. 10/11/2017 7:04 AM Dictated Date/Time: 10/11/2017 7:00 AM
--- NOTE | 2017-10-11 07:17 | DIAGNOSTIC IMAGING REPORT ---
CERVICAL SPINE W/O CLINICAL HISTORY: 47 years-old Female presenting with pain/numbness neck down left arm. TECHNIQUE: Multidetector CT of the cervical spine was performed without the use of intravenous contrast. IV contrast: None. A dose lowering technique was used consistent with the principles of ALARA (as low as reasonably achievable). COMPARISON: None. CT DOSE (mGy.cm): The estimated cumulative dose is 973.[address] head. FINDINGS: Ophthalmic Asst topogram: The patient is edentulous. Normal cervical lordosis. Vertebral bodies maintain normal height and alignment. Intervertebral disc spaces are served. No acute fracture or subluxation. No degenerative change. Numerous subcentimeter cervical lymph nodes bilaterally, possibly reactive. Lung apices clear. IMPRESSION: No acute osseous injury of the cervical spine. Electronically signed by: Brady Pope M.D. 10/11/2017 7:15 AM Dictated Date/Time: 10/11/2017 7:13 AM
[2018-02-27] MEDS ORDERED: ISR5 PO (14:27)
== END 2017-10-11 03:06 | disposition home or self-care (01) ==
LOC: C.EDB 00:03
DX: M54.12 Radiculopathy, cervical region (principal); E11.65 Type 2 diabetes mellitus with hyperglycemia; K21.9 Gastro-esophageal reflux disease without esophagitis; I10 Essential (primary) hypertension; I25.2 Old myocardial infarction; Z79.01 Long term (current) use of anticoagulants; Z79.82 Long term (current) use of aspirin; Z79.02 Long term (current) use of antithrombotics/antiplatelets; Z79.4 Long term (current) use of insulin; Z86.73 Personal history of transient ischemic attack (TIA), and cerebral infarction without residual deficits; Z87.891 Personal history of nicotine dependence; Z82.49 Family history of ischemic heart disease and other diseases of the circulatory system; Z84.1 Family history of disorders of kidney and ureter

== ENCOUNTER → 2017-10-31 | Outpatient (CLI) | payer OTHER ==
[~2017-10-31] MED LIST changes: +APIX1TAB3 PO; +ASPEC81 PO; -ASPI-320 PO; -FSTTS SC; +FURO-85 PO; -insu
[2017-10-31 13:12] LABS: BLOOD UREA NITROGEN 20 mg/dl (7-18); CALCIUM 8.8 mg/dl (8.5-10.1); CARBON DIOXIDE 30 mmol/L (21-32); CREATININE 0.83 mg/dl (0.60-1.20); GLUCOSE 138 mg/dl (70-99); POTASSIUM 3.4 mmol/L (3.5-5.1); SODIUM 137 mmol/L (136-145)
== END | disposition home or self-care (01) ==
LOC: C.LABPBG 08:36
PROVIDERS: ATTEND Physician Assistant
DX: I50.20 Unspecified systolic (congestive) heart failure (principal)

== ENCOUNTER → 2017-11-03 | Outpatient (CLI) | payer OTHER ==
[2017-11-03 13:10] LABS: HEMATOCRIT 33.4 % (37-47); HEMOGLOBIN 11.3 g/dL (12.0-16.0); MEAN CELL VOLUME 84.6 fL (80-100); MEAN CORPUSCULAR HEMOGLOBIN 28.6 pg (25-34); MEAN CORPUSCULAR HGB CONC 33.8 g/dl (32-36); MEAN PLATELET VOLUME 9.9 fL (7.4-10.4); PLATELET COUNT 246 K/uL (130-400); RED CELL DISTRIBUTION WIDTH CV 13.2 % (11.5-14.5); RED CELL DISTRIBUTION WIDTH SD 40.2 fL (36.4-46.3); WHITE BLOOD COUNT 10.07 K/uL (4.8-10.8)
== END | disposition home or self-care (01) ==
LOC: C.LAB1850 12:07
PROVIDERS: ATTEND Physician Assistant
DX: R53.83 Other fatigue (principal)

== ENCOUNTER 2018-02-26 18:02 | Observation (INO) | payer OTHER ==
[~2018-02-26] VITALS: Ht 160 cm; Wt 81.5 kg
[~2018-02-26 18:02] MED LIST changes: -ASPEC81 PO; +ASPI-320 PO
[2018-02-26] MEDS ORDERED: NITROGLYCERIN 2% OINTMENT 30GM TUBE EXT STA (18:09)
[2018-02-26] MEDS ORDERED: ONDANSETRON INJ 2 MG/ML 2 ML VIAL IV STA (18:09)
--- NOTE | 2018-02-26 18:15 | EMERGENCY ROOM VISIT NOTE ---
History Report prepared by Donaldo: Regina Snyder Under the Supervision of: Dr. Aj Garcia M.D. First contact with patient: 18:03 Chief Complaint: CHEST PAIN Stated Complaint: CHEST PAIN History of Present Illness The patient is a 47 year old white female with a past medical history of AMI, diabetes, GERD, HTN and a heart stent who presents to the ED with a cc of left sided chest pain beginning at around 1630 today. Positive nausea, chills, diaphoresis. Negative vomiting, history of blood clots in her legs or lungs, recent travel. She states when her pain began that it was constant and sharp, as if someone was squeezing her chest. She reports that her pain is now intermittent, burning, and the 3 nitro and full dose of aspirin she received in the ambulance slightly alleviated her pain. The patient notes she has gained 35 pounds since her heart attack and she is currently taking aspirin and Plavix. Source of History: patient Onset: around 1630 today Position: chest (left) Quality: burning, sharp Timing: intermittent Modifying Factors (Relieving): other (3 nitro and full dose of aspirin) Associated Symptoms: + chills, + diaphoresis, + nausea, No vomiting Note: Negative history of blood clots in her legs or lungs or recent travel Review of Systems See HPI for pertinent positives and negatives. A total of ten systems were reviewed and were otherwise negative. Past Medical & Surgical Medical Problems: (1) AMI (acute myocardial infarction) (2) Angina pectoris (3) Atrial thrombus following [place] (4) Diabetes (5) GERD (gastroesophageal reflux disease) (6) HTN (hypertension) (7) Tobacco abuse Family History FH: congestive heart failure MOTHER FH: heart attack FATHER ( 72 AMI) Hypertension FATHER Kidney disease MOTHER Social History Smoking Status: Former Smoker Drug Use: none Marital Status: single Housing Status: lives with family Current/Historical Medications Scheduled Apixaban (Eliquis), 5 MG PO BID Aspirin (Aspirin Ec), 81 MG PO QAM Atorvastatin (Lipitor), 80 MG PO QAM Clopidogrel (Plavix), 75 MG PO QAM Insulin Glargine (Lantus Solostar), 10 UNITS SC AMPM Metformin Hcl (Glucophage), 500 MG PO BID Metoprolol Tartrate (Lopressor) (Lopressor), 12.5 MG PO BID Pantoprazole (Protonix), 40 MG PO QAM Scheduled PRN Nitroglycerin (Nitrostat), 0.4 MG SL DIRECTED PRN for Chest Pain Allergies Coded Allergies: No Known Allergies (Unverified , 02/26/18) Physical Exam Vital Signs Date Time Temp Pulse Resp B/P (MAP) Pulse Ox O2 Delivery O2 Flow Rate FiO2 02/26/18 19:15 73 20 137/90 99 Room Air 02/26/18 18:32 73 20 115/65 97 Room Air 02/26/18 18:17 73 02/26/18 18:16 100 Room Air 02/26/18 18:10 36.6 76 21 134/73 100 Room Air 02/26/18 18:10 100 Room Air Physical Exam GENERAL: Awake, alert, well-appearing, NAD HENT: Normocephalic, atraumatic. EYES: Normal conjunctiva. Sclera non-icteric. PERRL. No anisocoria. NECK: Supple. No nuchal rigidity. FROM. RESPIRATORY: CTAB, no rhonchi, wheezing, crackles CARDIAC: RRR, no MRG ABDOMEN: Soft, NTND, BS+ MSK: No chest wall TTP, no LE edema NEURO: GCS 15, CN 2-12 intact, moves all 4s on command SKIN: No rash or jaundice noted. Medical Decision & Procedures ER Provider Diagnostic Interpretation: Radiology results as stated below per my review and radiologist interpretation: CHEST ONE VIEW PORTABLE HISTORY: Atypical CHEST PAIN COMPARISON: Chest 10/11/2017. FINDINGS: There are low lung volumes. No focal lung consolidations to suggest pneumonia. No evidence for pulmonary edema. The heart is normal in size. No pleural effusions. No pneumothorax. IMPRESSION: No acute process. Electronically signed by: Candido Martinez M.D. 02/26/2018 6:34 PM Laboratory Results 02/26/18 18:00 Red Blood Count 4.26, Mean Corpuscular Volume 80.5, Mean Corpuscular Hemoglobin 28.2, Mean Corpuscular Hemoglobin Concent 35.0, Mean Platelet Volume 9.8, Neutrophils (%) (Auto) 59.4, Lymphocytes (%) (Auto) 33.2, Monocytes (%) (Auto) 5.4, Eosinophils (%) (Auto) 1.6, Basophils (%) (Auto) 0.2, Neutrophils # (Auto) 5.96, Lymphocytes # (Auto) 3.33, Monocytes # (Auto) 0.54, Eosinophils # (Auto) 0.16, Basophils # (Auto) 0.02 02/26/18 18:00 Test 02/26/18 18:00 White Blood Count 10.03 K/uL (4.8-10.8) Red Blood Count 4.26 M/uL (4.2-5.4) Hemoglobin 12.0 g/dL (12.0-16.0) Hematocrit 34.3 % (37-47) Mean Corpuscular Volume 80.5 fL (80-100) Mean Corpuscular Hemoglobin 28.2 pg (25-34) Mean Corpuscular Hemoglobin Concent 35.0 g/dl (32-36) Platelet Count 275 K/uL (130-400) Mean Platelet Volume 9.8 fL (7.4-10.4) Neutrophils (%) (Auto) 59.4 % Lymphocytes (%) (Auto) 33.2 % Monocytes (%) (Auto) 5.4 % Eosinophils (%) (Auto) 1.6 % Basophils (%) (Auto) 0.2 % Neutrophils # (Auto) 5.96 K/uL (1.4-6.5) Lymphocytes # (Auto) 3.33 K/uL (1.2-3.4) Monocytes # (Auto) 0.54 K/uL (0.11-0.59) Eosinophils # (Auto) 0.16 K/uL (0-0.5) Basophils # (Auto) 0.02 K/uL (0-0.2) RDW Standard Deviation 38.9 fL (36.4-46.3) RDW Coefficient of Variation 13.3 % (11.5-14.5) Immature Granulocyte % (Auto) 0.2 % Immature Granulocyte # (Auto) 0.02 K/uL (0.00-0.02) Prothrombin Time 10.6 SECONDS (9.0-12.0) Prothromb Time International Ratio 1.0 (0.9-1.1) Activated Partial Thromboplast Time 26.3 SECONDS (21.0-31.0) Partial Thromboplastin Ratio 1.0 Anion Gap 8.0 mmol/L (3-11) Est Creatinine Clear Calc Drug Dose 101.0 ml/min Estimated GFR () 118.7 Estimated GFR (Non- 102.5 BUN/Creatinine Ratio 17.4 (10-20) Calcium Level 9.0 mg/dl (8.5-10.1) Magnesium Level 1.6 mg/dl (1.8-2.4) Total Bilirubin 0.4 mg/dl (0.2-1) Direct Bilirubin 0.1 mg/dl (0-0.2) Aspartate Amino Transf (AST/SGOT) 13 U/L (15-37) Alanine Aminotransferase (ALT/SGPT) 18 U/L (12-78) Alkaline Phosphatase 111 U/L (45-117) Troponin I < 0.015 ng/ml (0-0.045) Pro-B-Type Natriuretic Peptide 414 pg/ml (0-450) Total Protein 7.7 gm/dl (6.4-8.2) Albumin 3.2 gm/dl (3.4-5.0) Lipase 105 U/L (73-393) Laboratory results reviewed by me Medications Administered Medications (Trade) Dose Ordered Sig/Russ Route Start Time Stop Time Status Last Admin Dose Admin Ondansetron HCl (Zofran Inj) 4 mg NOW STAT IV 02/26/18 18:09 02/26/18 18:11 DC 02/26/18 18:25 4 MG Nitroglycerin (Nitroglycerin 2% Oint) 1 inch ONE STAT EXT 02/26/18 18:09 02/26/18 18:11 DC 02/26/18 18:25 1 INCH Fentanyl Citrate (Fentanyl Inj) 50 mcg NOW ONCE IV 02/26/18 18:30 02/26/18 18:31 DC 02/26/18 18:44 50 MCG Potassium Chloride (Klor-Con Tab) 40 meq NOW STAT PO 02/26/18 19:00 02/26/18 19:01 DC 02/26/18 19:14 40 MEQ ECG Per My Interpretation Indication: chest pain Rate (beats per minute): 77 Rhythm: normal sinus Findings: other (normal intervals, normal axis, no STS changes or TWI ) ED Course 1804: The patient was evaluated in room A12. A complete history and physical exam was performed. 0: I checked on the patient at this time. She states her chest pain has slightly improved but it is not resolved. 0: Discussed the patient's case with Dr. Jerson Mckeon, [facility] Hospitalist. The patient will be evaluated for further treatment and disposition. Medical Decision The patient is a 47 year old white female with a past medical history of AMI s/ p CR to LAD on ASA/Plavix, diabetes, GERD, HTN and a heart stent who presents to the ED with a cc of left sided chest pain beginning at around 1630 today. Positive nausea, chills, diaphoresis. Negative vomiting, history of blood clots in her legs or lungs, recent travel. Differential diagnosis: Etiologies such as cardiac ischemia, aortic dissection, pulmonary embolism, pneumonia, pneumothorax, musculoskeletal, infections, pericarditis, myocarditis , esophageal rupture, gastrointestinal, as well as others were entertained. Patient was seen and evaluated the bedside. Patient did complain of chest pain around 430. Patient states it was sharp left-sided nonradiating. She did complain of some squeezing as well as some nausea without vomiting. Denies diaphoresis. Patient is unsure whether not it is exertional. Patient does state that aspirin nitro did relieve her discomfort. Patient still has some mild discomfort. Patient denies infectious symptoms, history DVT or PE, lower externally swelling. Patient did claim that she had approximately 30 pound weight gain since her stent was placed however she had been on diuretics but now was not as they caused sounds to be some dehydration possible [place] I. Blood work, EKG, troponin, chest x-ray were completed. The patient had already received a full dose aspirin. An inch of Nitropaste was placed on the chest. Patient's EKG did not show ischemic changes. Troponins negative patient white blood cell count within normal limits. Upon reassessment patient's chest pain improved from a 5-4. Patient does state that this felt similar to prior [place]. Patient did receive some fentanyl. Given the patient's high risk status as well as similar and ongoing chest pain even without EKG changes are not elevated troponin of believe she would benefit from an obscured. I did discuss the patient with the on-call hospitalist who agreed to further evaluate treat patient. Mild hypokalemia which was repleted. Mag was also drawn. Medication Reconcilliation Current Medication List: was personally reviewed by me Blood Pressure Screening Patient's blood pressure: Normal blood pressure Blood pressure disposition: Did not require urgent referral Consults Time Called: 1857 Consulting Physician: Dr. Jerson Mckeon [facility] Hospitalist Returned Call: 1900 Discussed the patient's case with Dr. Jerson Mckeon [facility] Hospitalist. The patient will be evaluated for further treatment and disposition. Impression Primary Impression: Left sided chest pain Additional Impression: Encounter for smoking cessation counseling Scribe Attestation The scribe's documentation has been prepared under my direction and personally reviewed by me in its entirety. I confirm that the note above accurately reflects all work, treatment, procedures, and medical decision making performed by me. Departure Information Dispostion Being Evaluated By Hospitalist (Dr. Jerson Mckeon, [facility] Hospitalist ) Referrals Scar Ricks D.O. (PCP) Patient Instructions My [facility] Problem Qualifiers
[2018-02-26] MEDS ORDERED: FENTANYL CITRATE INJ 50 MCG/1 ML 2 ML VIAL IV ONE (18:30)
[2018-02-26 18:33] LABS: BASO % 0.2 %; BASO ABS # 0.02 K/uL (0-0.2); EOS % 1.6 %; EOS ABS # 0.16 K/uL (0-0.5); HEMATOCRIT 34.3 % (37-47); IG# 0.02 K/uL (0.00-0.02); LYMPH % 33.2 %; LYMPH ABS # 3.33 K/uL (1.2-3.4); MEAN CELL VOLUME 80.5 fL (80-100); MEAN CORPUSCULAR HEMOGLOBIN 28.2 pg (25-34); MEAN PLATELET VOLUME 9.8 fL (7.4-10.4); MONO % 5.4 %; MONO ABS # 0.54 K/uL (0.11-0.59); NEUT % 59.4 %; NEUT ABS # 5.96 K/uL (1.4-6.5); PLATELET COUNT 275 K/uL (130-400); RED CELL DISTRIBUTION WIDTH CV 13.3 % (11.5-14.5); RED CELL DISTRIBUTION WIDTH SD 38.9 fL (36.4-46.3); WHITE BLOOD COUNT 10.03 K/uL (4.8-10.8)
--- NOTE | 2018-02-26 18:36 | DIAGNOSTIC IMAGING REPORT ---
CHEST ONE VIEW PORTABLE HISTORY: Atypical CHEST PAIN COMPARISON: Chest 10/11/2017. FINDINGS: There are low lung volumes. No focal lung consolidations to suggest pneumonia. No evidence for pulmonary edema. The heart is normal in size. No pleural effusions. No pneumothorax. IMPRESSION: No acute process. Electronically signed by: Candido Martinez M.D. 02/26/2018 6:34 PM Dictated Date/Time: 02/26/2018 6:33 PM
[2018-02-26 18:42] LABS: PTT PATIENT 26.3 SECONDS (21.0-31.0)
[2018-02-26] MEDS ORDERED: ASPI81TA28 PO (18:45)
[2018-02-26] MEDS ORDERED: INSDGIPEN SC (18:45)
[2018-02-26] MEDS ORDERED: CLOP1TAB15 PO (18:45)
[2018-02-26] MEDS ORDERED: METO25TA56 PO (18:45)
[2018-02-26] MEDS ORDERED: ATOR-26 PO (18:45)
[2018-02-26] MEDS ORDERED: GLC/500 PO (18:45)
[2018-02-26] MEDS ORDERED: PANT40TA PO (18:45)
[2018-02-26] MEDS ORDERED: NTRGSL/4 SL (18:45)
[2018-02-26 18:55] LABS: ALBUMIN 3.2 gm/dl (3.4-5.0); ALKALINE PHOSPHATASE 111 U/L (45-117); ALT/SGPT 18 U/L (12-78); AST/SGOT 13 U/L (15-37); BLOOD UREA NITROGEN 12 mg/dl (7-18); CARBON DIOXIDE 27 mmol/L (21-32); GLUCOSE 102 mg/dl (70-99); LIPASE 105 U/L (73-393); POTASSIUM 3.4 mmol/L (3.5-5.1); SODIUM 136 mmol/L (136-145); TOTAL PROTEIN 7.7 gm/dl (6.4-8.2)
[2018-02-26] MEDS ORDERED: POTASSIUM CHLORIDE 20 MEQ TABCR PO STA (19:00)
[2018-02-26] MEDS ORDERED: GLUCOSE 40% GEL 15 GM TUBE PO PRN (19:15)
[2018-02-26] MEDS ORDERED: GLUCOSE 10 TABS/TUBE PO PRN (19:15)
[2018-02-26] MEDS ORDERED: GLUCAGON FOR INJ 1 MG VIAL SQ PRN (19:15)
--- NOTE | 2018-02-26 20:41 | History and Physical ---
History & Physical Date & Time of Service: February 26, 2018 at 20:40 Chief Complaint: Chest Pain Primary Care Physician: Scar Ricks D.O. History of Present Illness Source: patient 47 y/o F pMHx of MO s/p stent with cardioembolic stroke (08/2017), DMII, HTN, tobacco abuse presented to the ED today with acute chest pain. Described as squeezing/tightness on her left chest occurring while at rest and associated with nausea, diaphoresis, and a sense of breathlessness. No radiation of pain, and patient did not have emesis. She states compliance with medication. She denies exertional symptoms prior to this, no orthopnea or PND. She does state chronic ankle swelling and a 35lb weight gain in the last 6 month. She otherwise denies fevers/chills, headaches, abdominal pain, rashes, or issues with voiding or stooling. In the ER, EKG was negative for ischemic changes and initial troponin was negative. She received NGT, Zofran, and fentanyl. She also states chronic numbness/tingling in her feet secondary to her DM. She states her chest pain is dulled but still present currently, however, she is feeling much better. ROS is unremarkable except as noted above. Past Medical/Surgical History Medical Problems: MO with atrial thrombus following MO Cervical radiculopathy DM GERD HTN Tobacco abuse Family History FH: congestive heart failure MOTHER FH: heart attack FATHER ( 72 AMI) Hypertension FATHER Kidney disease MOTHER Social History Smoking Status: Current Some Day Smoker Smokeless Tobacco Use: No Alcohol Use: none Drug Use: none Marital Status: single Housing status: lives with family Immunizations History of Influenza Vaccine: Unknown History of Tetanus Vaccine?: Unknown History of Pneumococcal: Unknown History of Hepatitis B Vaccine: Unknown Allergies Coded Allergies: No Known Allergies (Unverified , 02/26/18) Home Medications Scheduled Apixaban (Eliquis), 5 MG PO BID Aspirin (Aspirin Ec), 81 MG PO QAM Atorvastatin (Lipitor), 80 MG PO QAM Clopidogrel (Plavix), 75 MG PO QAM Insulin Glargine (Lantus Solostar), 10 UNITS SC AMPM Isosorbide Dinitrate (Isosorbide Dinitrate), 5 MG PO BID@0700,1200 Metformin Hcl (Glucophage), 500 MG PO BID Metoprolol Tartrate (Lopressor) (Lopressor), 12.5 MG PO BID Pantoprazole (Protonix), 40 MG PO QAM Scheduled PRN Nitroglycerin (Nitrostat), 0.4 MG SL DIRECTED PRN for Chest Pain Physical Exam Vital Signs Date Time Temp Pulse Resp B/P (MAP) Pulse Ox O2 Delivery O2 Flow Rate FiO2 02/26/18 19:15 73 20 137/90 99 Room Air 02/26/18 18:32 73 20 115/65 97 Room Air 02/26/18 18:17 73 02/26/18 18:16 100 Room Air 02/26/18 18:10 36.6 76 21 134/73 100 Room Air 02/26/18 18:10 100 Room Air General Appearance: WD/WN, no apparent distress Head: normocephalic, atraumatic Eyes: sclerae normal ENT: hearing grossly normal, pharynx normal Neck: supple, no JVD Respiratory/Chest: chest non-tender, no respiratory distress, no accessory muscle use Cardiovascular: regular rate, rhythm, no murmur, normal peripheral pulses Abdomen/GI: normal bowel sounds, non tender, soft Back: normal inspection Extremities/Musculoskelatal: no calf tenderness, no pedal edema Neurologic/Psych: alert, normal mood/affect, oriented x 3 Skin: normal color, warm/dry, no rash Diagnostics Laboratory Results Results Past 24 Hours Test 02/26/18 18:00 Range/Units White Blood Count 10.03 4.8-10.8 K/uL Red Blood Count 4.26 4.2-5.4 M/uL Hemoglobin 12.0 12.0-16.0 g/dL Hematocrit 34.3 37-47 % Mean Corpuscular Volume 80.5 80-100 fL Mean Corpuscular Hemoglobin 28.2 25-34 pg Mean Corpuscular Hemoglobin Concent 35.0 32-36 g/dl Platelet Count 275 130-400 K/uL Mean Platelet Volume 9.8 7.4-10.4 fL Neutrophils (%) (Auto) 59.4 % Lymphocytes (%) (Auto) 33.2 % Monocytes (%) (Auto) 5.4 % Eosinophils (%) (Auto) 1.6 % Basophils (%) (Auto) 0.2 % Neutrophils # (Auto) 5.96 1.4-6.5 K/uL Lymphocytes # (Auto) 3.33 1.2-3.4 K/uL Monocytes # (Auto) 0.54 0.11-0.59 K/uL Eosinophils # (Auto) 0.16 0-0.5 K/uL Basophils # (Auto) 0.02 0-0.2 K/uL RDW Standard Deviation 38.9 36.4-46.3 fL RDW Coefficient of Variation 13.3 11.5-14.5 % Immature Granulocyte % (Auto) 0.2 % Immature Granulocyte # (Auto) 0.02 0.00-0.02 K/uL Prothrombin Time 10.6 9.0-12.0 SECONDS Prothromb Time International Ratio 1.0 0.9-1.1 Activated Partial Thromboplast Time 26.3 21.0-31.0 SECONDS Partial Thromboplastin Ratio 1.0 Sodium Level 136 136-145 mmol/L Potassium Level 3.4 3.5-5.1 mmol/L Chloride Level 102 98-107 mmol/L Carbon Dioxide Level 27 21-32 mmol/L Anion Gap 8.0 3-11 mmol/L Blood Urea Nitrogen 12 7-18 mg/dl Creatinine 0.70 0.60-1.20 mg/dl Est Creatinine Clear Calc Drug Dose 101.0 ml/min Estimated GFR () 118.7 Estimated GFR (Non- 102.5 BUN/Creatinine Ratio 17.4 10-20 Random Glucose 102 70-99 mg/dl Calcium Level 9.0 8.5-10.1 mg/dl Magnesium Level 1.6 1.8-2.4 mg/dl Total Bilirubin 0.4 0.2-1 mg/dl Direct Bilirubin 0.1 0-0.2 mg/dl Aspartate Amino Transf (AST/SGOT) 13 15-37 U/L Alanine Aminotransferase (ALT/SGPT) 18 12-78 U/L Alkaline Phosphatase 111 45-117 U/L Troponin I < 0.015 0-0.045 ng/ml Pro-B-Type Natriuretic Peptide 414 0-450 pg/ml Total Protein 7.7 6.4-8.2 gm/dl Albumin 3.2 3.4-5.0 gm/dl Lipase 105 73-393 U/L Diagnostic Radiology CHEST ONE VIEW PORTABLE HISTORY: Atypical CHEST PAIN COMPARISON: Chest 10/11/2017. FINDINGS: There are low lung volumes. No focal lung consolidations to suggest pneumonia. No evidence for pulmonary edema. The heart is normal in size. No pleural effusions. No pneumothorax. IMPRESSION: No acute process. EKG Normal sinus rhythm Low voltage QRS Borderline ECG When compared with ECG of 11-OCT-2017 02:18, No significant change was found Confirmed by MARIBETH CAZARES ([id number]) on 02/26/2018 9:44:45 PM Impression Assessment and Plan 47 y/o F pMHx of MO s/p stent with cardioembolic stroke (08/2017), DMII, HTN, tobacco abuse presented to the ED today with acute onset left sided chest pain. Chest pain on bkgd of MO s/p stent (08/2017) - Serial troponin - Cardiology consulted - Continue aspirin, clopidogrel, metoprolol, atorvastatin - Initiated heparin drip - NGT and EKG prn chest pain DM - poorly controlled, HbA1c 13.3 (08/29) - Lantus 10units BID + ISS with checks ac/hs HTN - continue metoprolol GERD - continue pantoprazole Nicotine abuse - nicotine patch ordered VTE ppx - SCDs, Hep drip as above Full code Attending addendum: I have physically seen this patient, have supervised the medical residents activities, and agree with the H&P unless as otherwise noted. Assessment and Plan: Chest pain/CAD/history of MO/history coronary artery stent/hypertension-- The patient will be admitted to telemetry for serial cardiac enzymes, serial EKG's, cardiac rhythm monitoring and a 2-D echocardiogram with Dopplers. Continue aspirin, clopidogrel and metoprolol. Start heparin drip per weight-based protocol without bolus. Consult cardiology. Diabetes mellitus-- Lantus 10 units subcu twice daily. Placed on Accu-Cheks before meals and at bedtime with NovoLog coverage per scale. Last hemoglobin A1c 13.3 on 08/29. GERD-- Continue pantoprazole. Tobacco use disorder-- Tobacco cessation counseling. Nicotine patch. Advanced Directives Existing Advance Directive: No Existing Living Will: No Existing Power of Load Manager: No Resuscitation Status FULL VTE Prophylaxis Will order VTE Prophylaxis: Yes Social Service Consult None Apply Resident Tracking Resident Involvement: Resident Care Provided Care Provided: Adult Hospital Medicine
[2018-02-26] MEDS ORDERED: MAGNESIUM HYDROXIDE SUSP 30 ML UDC PO PRN (20:45)
[2018-02-26] MEDS ORDERED: MoRPHine SULFATE 2 MG/ML CARP IV PRN (20:45)
[2018-02-26] MEDS ORDERED: ACETAMINOPHEN 325 MG TAB PO PRN (20:45)
[2018-02-26] MEDS ORDERED: ONDANSETRON INJ 2 MG/ML 2 ML VIAL IV PRN (20:45)
[2018-02-26] MEDS ORDERED: NITROGLYCERIN 0.4 MG SL PER TAB CHARGE SL PRN (20:45)
[2018-02-26] MEDS ORDERED: ALUMINUM/MAGNESIUM/SIMETH (MAALOX MAX) 30 ML UDC PO PRN (20:45)
[2018-02-26] MEDS ORDERED: POLYETHYLENE (MIRALAX) 17 GM PACK PO PRN (20:45)
[2018-02-26 20:58] VITALS: BP 108/69; PULSE 78; TEMP 36.8; BMI 31.7; BMI 32.8
[2018-02-26] MEDS ORDERED: CARBOHYDRATES FOR HYPOGLYCEMIA PO PRN (21:00)
[2018-02-26] MEDS ORDERED: HEPARIN 25,000 UNIT/500ML D5W 500 ML IV SCH (21:15)
[2018-02-26] MEDS ORDERED: HEPARIN 25000 UNIT/500 ML D5W ONE (21:39)
[2018-02-26] MEDS: METOPROLOL TARTRATE 25 MG TAB PO SCH (22:29)
[2018-02-26] MEDS: INSULIN ASPART 100 UNITS/ML 3 ML PEN SC SCH (22:36)
[2018-02-26] MEDS: INSULIN GLARGINE SOLOSTAR 100 UNITS/ML 3 ML PEN SC SCH (22:37)
[2018-02-26] MEDS ORDERED: IV FLUIDS COMPLETED PRN (23:15)
[2018-02-26 23:55] VITALS: BP 98/61; PULSE 66; TEMP 36.5; O2SAT 98
[2018-02-26 23:59] VITALS: O2SAT 98
[2018-02-27] VITALS (7 sets, daily range): BP systolic 94–116; BP diastolic 58–76; PULSE 68–76; TEMP 36.6–36.8; O2SAT 95–98; Ht 160 cm; Wt 81.5 kg
[2018-02-27 04:18] LABS: HEMATOCRIT 31.1 % (37-47); HEMOGLOBIN 10.7 g/dL (12.0-16.0); MEAN CORPUSCULAR HEMOGLOBIN 27.9 pg (25-34); MEAN CORPUSCULAR HGB CONC 34.4 g/dl (32-36); MEAN PLATELET VOLUME 9.8 fL (7.4-10.4); PLATELET COUNT 231 K/uL (130-400); RED CELL DISTRIBUTION WIDTH CV 13.6 % (11.5-14.5); RED CELL DISTRIBUTION WIDTH SD 40.3 fL (36.4-46.3); WHITE BLOOD COUNT 9.18 K/uL (4.8-10.8)
[2018-02-27 04:31] LABS: PTT PATIENT 38.3 SECONDS (21.0-31.0)
[2018-02-27 04:44] LABS: BLOOD UREA NITROGEN 12 mg/dl (7-18); CALCIUM 8.6 mg/dl (8.5-10.1); CARBON DIOXIDE 31 mmol/L (21-32); CREATININE 0.75 mg/dl (0.60-1.20); GLUCOSE 174 mg/dl (70-99); POTASSIUM 4.1 mmol/L (3.5-5.1); SODIUM 139 mmol/L (136-145)
[2018-02-27] MEDS ORDERED: HEPARIN IV BOLUS 5,000 UNIT in SYRINGE 0 ML IV ONE (04:45)
[2018-02-27 04:48] LABS: CHOLESTEROL 143 mg/dl (0-200); LDL CHOLESTEROL CALCULATED 49 mg/dl
[2018-02-27 06:11] LABS: HEMOGLOBIN A1C 8.3 % (4.5-5.6)
--- NOTE | 2018-02-27 07:51 | Progress Note ---
Subjective Date of Service: February 27, 2018. Problem List Medical Problems: (1) Cervical radiculopathy Status: Acute (2) Encounter for smoking cessation counseling Status: Acute (3) Hyperglycemia due to type 2 diabetes mellitus Status: Acute (4) Left sided chest pain Status: Acute Objective Vital Signs Date Time Temp Pulse Resp B/P (MAP) Pulse Ox O2 Delivery O2 Flow Rate FiO2 02/27/18 06:39 36.8 76 16 99/63 (75) 96 Room Air 02/27/18 04:00 Room Air 02/27/18 03:55 36.7 68 16 94/58 (70) 95 Room Air 02/26/18 23:59 98 Room Air 02/26/18 23:55 36.5 66 17 98/61 (73) 98 Room Air 02/26/18 21:47 78 20 100/62 99 02/26/18 20:58 36.8 78 16 108/69 Room Air 02/26/18 19:15 73 20 137/90 99 Room Air 02/26/18 18:32 73 20 115/65 97 Room Air 02/26/18 18:17 73 02/26/18 18:16 100 Room Air 02/26/18 18:10 36.6 76 21 134/73 100 Room Air 02/26/18 18:10 100 Room Air Laboratory Results Last 24 Hours Test 02/26/18 18:00 02/26/18 22:20 02/27/18 03:45 02/27/18 07:01 White Blood Count 10.03 K/uL 9.18 K/uL Red Blood Count 4.26 M/uL 3.84 M/uL Hemoglobin 12.0 g/dL 10.7 g/dL Hematocrit 34.3 % 31.1 % Mean Corpuscular Volume 80.5 fL 81.0 fL Mean Corpuscular Hemoglobin 28.2 pg 27.9 pg Mean Corpuscular Hemoglobin Concent 35.0 g/dl 34.4 g/dl Platelet Count 275 K/uL 231 K/uL Mean Platelet Volume 9.8 fL 9.8 fL Neutrophils (%) (Auto) 59.4 % Lymphocytes (%) (Auto) 33.2 % Monocytes (%) (Auto) 5.4 % Eosinophils (%) (Auto) 1.6 % Basophils (%) (Auto) 0.2 % Neutrophils # (Auto) 5.96 K/uL Lymphocytes # (Auto) 3.33 K/uL Monocytes # (Auto) 0.54 K/uL Eosinophils # (Auto) 0.16 K/uL Basophils # (Auto) 0.02 K/uL RDW Standard Deviation 38.9 fL 40.3 fL RDW Coefficient of Variation 13.3 % 13.6 % Immature Granulocyte % (Auto) 0.2 % Immature Granulocyte # (Auto) 0.02 K/uL Prothrombin Time 10.6 SECONDS Prothromb Time International Ratio 1.0 Activated Partial Thromboplast Time 26.3 SECONDS 38.3 SECONDS Partial Thromboplastin Ratio 1.0 1.5 Sodium Level 136 mmol/L 139 mmol/L Potassium Level 3.4 mmol/L 4.1 mmol/L Chloride Level 102 mmol/L 105 mmol/L Carbon Dioxide Level 27 mmol/L 31 mmol/L Anion Gap 8.0 mmol/L 3.0 mmol/L Blood Urea Nitrogen 12 mg/dl 12 mg/dl Creatinine 0.70 mg/dl 0.75 mg/dl Est Creatinine Clear Calc Drug Dose 101.0 ml/min 92.5 ml/min Estimated GFR () 118.7 109.2 Estimated GFR (Non- 102.5 94.3 BUN/Creatinine Ratio 17.4 16.6 Random Glucose 102 mg/dl 174 mg/dl Calcium Level 9.0 mg/dl 8.6 mg/dl Magnesium Level 1.6 mg/dl Total Bilirubin 0.4 mg/dl Direct Bilirubin 0.1 mg/dl Aspartate Amino Transf (AST/SGOT) 13 U/L Alanine Aminotransferase (ALT/SGPT) 18 U/L Alkaline Phosphatase 111 U/L Troponin I < 0.015 ng/ml < 0.015 ng/ml Pro-B-Type Natriuretic Peptide 414 pg/ml Total Protein 7.7 gm/dl Albumin 3.2 gm/dl Lipase 105 U/L Bedside Glucose 225 mg/dl 175 mg/dl Estimated Average Glucose 192 mg/dl Hemoglobin A1c 8.3 % Triglycerides Level 253 mg/dl Cholesterol Level 143 mg/dl HDL Cholesterol 43 mg/dl LDL Cholesterol, Calculated 49 mg/dl VLDL Cholesterol, Calculated 51 mg/dl Cholesterol/HDL Ratio 3.3 Assessment and Plan 47 y/o F pMHx of NC s/p stent with cardioembolic stroke (08/2017), DMII, HTN, tobacco abuse presented to the ED today with acute onset left sided chest pain. Chest pain recent NC s/p stent (08/2017), no acute ECG changes on presentation Given weight gain consider if worsened systolic function, in past echo showed EF 45%, chronic systolic heart failure - Serial troponin, aspirin, clopidogrel, metoprolol, atorvastatin - Initiated heparin drip - Cardiology consulted DM - poorly controlled, HbA1c 13.3 (08/29) - Lantus 10units BID + ISS with checks ac/hs HTN - metoprolol GERD - pantoprazole Nicotine abuse - nicotine patch ordered VTE ppx - SCDs, Hep drip as above Full code
[2018-02-27] MEDS: INSULIN ASPART 100 UNITS/ML 3 ML PEN SC SCH ×2 (08:38→11:00)
[2018-02-27] MEDS: INSULIN GLARGINE SOLOSTAR 100 UNITS/ML 3 ML PEN SC SCH (08:39)
[2018-02-27] MEDS ORDERED: ASPIRIN 81 MG ECTAB PO SCH (09:00)
[2018-02-27] MEDS ORDERED: PANTOprazole SOD 40 MG TAB PO SCH (09:00)
[2018-02-27] MEDS ORDERED: NICOTINE 7 MG/24 HR TDSY TD SCH (09:00)
[2018-02-27] MEDS: METOPROLOL TARTRATE 25 MG TAB PO SCH (09:00)
[2018-02-27] MEDS ORDERED: ATORVASTATIN 40 MG TAB PO SCH (09:00)
[2018-02-27] MEDS ORDERED: CLOPIDOGREL BISULFATE 75 MG TAB PO SCH (09:00)
[2018-02-27] MEDS ORDERED: DOBUTamine HCL 12.5 MG/ML 20 ML VIAL ONE (09:25)
[2018-02-27] MEDS ORDERED: METOPROLOL TARTRATE 1 MG/ML VIAL ONE ×2 (09:25)
[2018-02-27] MEDS ORDERED: ATROPINE SULFATE 0.1 MG/ML 5ML SYR ONE ×2 (09:25→09:26)
[2018-02-27] MEDS ORDERED: PERFLUTREN LIPID MICROSPHERE (DEFINITY) IV ONE (10:38)
[2018-02-27 11:15] LABS: PTT PATIENT 50.8 SECONDS (21.0-31.0)
--- NOTE | 2018-02-27 11:55 | CARDIOLOGY CONSULTATION ---
DATE OF CONSULTATION: 02/27/2018 Cardiology consult note. CONSULTATION REQUESTED BY: Dr. Watson. REASON FOR CONSULTATION: Chest pain. HISTORY OF PRESENT ILLNESS: Ms. Cotter is a very pleasant 47-year-old woman known to me from the outpatient setting and prior hospitalizations with a history of coronary artery disease status post anterior STEMI back in August 2017, who returned yesterday in the setting of acute onset of chest pain. Patient states she has been in her usual state of health up until approximately 4:30 p.m. yesterday afternoon when all of a sudden while at rest developed substernal chest pain, radiating to her back associated with nausea. Patient states symptoms similar to what she had at time of her STEMI 6 months ago and as symptoms persisted, called EMS. She received 3 sublingual nitroglycerin en route with modest improvement in symptoms. Symptoms persisted for a total of about 6 hours until it went away gradually overnight. Denies any associated palpitations, presyncope. Has not had any similar symptoms recently. Exercises infrequently, but when does, walk her dog. Denies any new limiting chest pain or shortness of breath. PAST MEDICAL HISTORY: 1. Coronary artery disease status post anterior STEMI in August 2017. She was treated with primary PCI with a single drug-eluting stent 3.0 x 18 mm Xience to her proximal LAD. 2. Ischemic cardiomyopathy, EF of 40-45% on most recent echo in October of 2017. 3. Residual coronary artery disease involving a small circumflex/OM 2. 4. Fidelina-catheterization acute CVA thought potentially secondary to LV thrombus treated with anticoagulation for 2 months. Minimal residual symptoms at this time. 5. Dyslipidemia. 6. Poorly controlled diabetes, last A1c of 8.3. 7. GERD. 8. Hypertension. SOCIAL HISTORY: , currently continues to smoke. Denies any significant alcohol or illicit drugs. Lives with her . HOME MEDICATIONS: Include aspirin 81, atorvastatin 40, Plavix 75 mg, Lantus insulin, metformin, metoprolol 12.5 mg b.i.d., sublingual nitroglycerin, Protonix, and potassium supplementation. ALLERGIES: No known drug allergies. FAMILY HISTORY: Premature coronary artery disease. REVIEW OF SYSTEMS: Ten point review of systems was complete and otherwise negative unless mentioned in the HPI. PHYSICAL EXAMINATION: VITAL SIGNS: Temperature 36.8, pulse 76, blood pressure 96/63. GENERAL: Patient appears comfortable in no acute distress. HEENT: Sclerae are anicteric. Oropharynx is clear. Mucous membranes are moist. NECK: Supple with no lymphadenopathy, no jugular venous distention. No carotid bruits. LUNGS: Clear to auscultation bilaterally. CARDIAC: She has a regular rate. She has no associated murmurs. ABDOMEN: Soft, nontender. EXTREMITIES: Warm. She has no significant lower extremity edema. SKIN: Shows no rashes or lesions. NEUROLOGIC: Nonfocal. LABORATORY DATA: White blood cell count 9.2, hemoglobin of 10.7, platelets of 231. Sodium 139, potassium 4.1, BUN of 12, creatinine 0.75. A1c of 8.3. Troponins have been negative x2. Total cholesterol 143, triglycerides 253, HDL 43, LDL 49. IMAGING: Chest x-ray showed no acute cardiopulmonary process. EKG showed normal sinus rhythm at a ventricular rate of [address] abnormalities. There was borderline septal infarct. Telemetry reviewed, sinus rhythm, no significant events. IMPRESSION AND PLAN: 1. Chest pain. 2. History of coronary artery disease including anterior ST elevation myocardial infarction and known small-vessel disease in circumflex distribution. 3. Poorly-controlled type 2 diabetes. 4. Hypertension. 5. Dyslipidemia. 6. Anemia. 7. Hypokalemia/hypomagnesemia. Ms. Cotter is here with acute onset of substernal chest pain reminiscent of prior pain associated with her anterior myocardial infarction. She endorsed more than 6 hours of pain. Unfortunately, has no elevation in her cardiac markers or EKG changes. As such, suspicion for acute coronary syndrome at this time is relatively low. However, in the setting of patient's prior history and risk factors I do feel that further risk stratification is warranted. We will plan on obtaining a dobutamine stress echocardiogram later today. In the interim, continue home therapy, high-intensity statin and beta migel. Heparin can be placed on hold for test. Assuming stress test unremarkable, can try starting on low-dose, long-acting nitrate to see if any improvement in symptoms. Thank you for allowing us to participate in the care of this patient. Please contact with any questions.
--- NOTE | 2018-02-27 12:41 | DOBUTAMINE ECHO ---
*NOTICE TO RECEIVING DEMOCRAT AGENCY This information is strictly Confidential and protected under [place] law. [place] law prohibits you from making any further disclosure of this information unless further disclosure is expressly permitted by the written consent of the person to whom it pertains or is authorized by law. A general authorization for the release of medical or other information is not sufficient for this purpose. Hospital accepts no responsibility if the information is made available to any other person, INCLUDING THE PATIENT. Interpretation Summary * Name: ENRIQUETA ETIENNE Study Date: 02/27/2018 08:49 AM BP: 117/52 mmHg * Patient Location: C.2T\S\S232\S\1 HR: 68 * : 1970 (M/d/yyyy) Gender: Female Height: 63 in * Age: 47 yrs Ethnicity: CA Weight: 179 lb * Ordering Physician: Mario Olvera * Referring Physician: Self, Referred * Performed By: Crystal Coy RDCS * * Reason For Study: CHEST PAIN * BSA: 1.8 m2 * -- Conclusions -- * 1. Negative dobutamine stress echo for ischemia at 91% MPHR. * 2. Negative stress ECG for ischemia. * 3. Normal LV size and function. Apical resting severe hypokinesis, unchanged with stress. Normal RV size and function. No significant valvular pathology. * 4. Compared with prior study on 08/21/2017: Resting LV function improved. Procedure Details * DOBUTAMINE ECHO, CPT#64354 * A contrast injection of Definity was performed to improve assessment of LV function. * Contrast was injected into an intravenous site in the right arm. * One vial of Definity ultrasound contrast was diluted in normal saline to a total volume of 10 ml. A total of '4' ml of solution was administered during imaging. * Lot # [id number] of Definity utilized for procedure. * Expiration date JAN 29. * The attending nurse who injected the contrast agent was HAMMAD GARCIA RN. Left Ventricle * The left ventricle is grossly normal size. * There is normal left ventricular wall thickness. * Ejection Fraction = 50-55%. * There is severe apical wall hypokinesis. Right Ventricle * The right ventricle is grossly normal size. * The right ventricular systolic function is normal as assessed by tricuspid annular plane systolic excursion (TAPSE) (normal >1.5 cm). Atria * Borderline left atrial enlargement. * Right atrial size is normal. * No ASD detected; PFO is not assessed. Mitral Valve * The mitral valve is grossly normal. * There is no mitral valve stenosis. * Significant mitral regurgitation is absent. Tricuspid Valve * Significant tricuspid regurgitation is absent. Aortic Valve * The aortic valve opens well. * The aortic valve is trileaflet. * No hemodynamically significant valvular aortic stenosis. * Trace aortic regurgitation. Pulmonic Valve * The pulmonary valve is inadequately visualized, but the Doppler data is adequate for interpretation. * Trace pulmonic valvular regurgitation. Great Vessels * The aortic root and proximal ascending aorta are normal sized. Pericardium * There is no pericardial effusion. Stress Parameters * Rest heart rate was '68' BPM. * Rest blood pressure was '117/52' * Maximum heart rate achieved was 157 bpm. * Maximum heart rate was 91 % of maximum age-predicted heart rate. * Maximum blood pressure was '198/72' * Maximum Dobutamine infusion rate was '30' mcg/kg/min. * Dobutamine infusion was terminated due to achieving target heart rate * A total of 5 mg of IV Metoprolol was administered to reverse Dobutamine-induced tachycardia. Left Ventricular Findings with Stress * The study was technically good with many images being of high quality. MMode 2D Measurements and Calculations IVSd 0.83 cm IVSs 1.4 cm LVIDd 4.5 cm LVIDs 3.0 cm LVPWd 1.1 cm LVPWs 1.8 cm IVS/LVPW 0.75 FS 32.7 % EDV(Teich) 93.7 ml ESV(Teich) 36.3 ml EF(Teich) 61.2 % EDV(cubed) 92.7 ml ESV(cubed) 28.3 ml EF(cubed) 69.5 % % IVS thick 65.7 % % LVPW thick 65.6 % LV mass(C)d 149.4 grams LV mass(C)dI 81.0 grams/m\S\2 LV mass(C)s 182.8 grams LV mass(C)sI 99.1 grams/m\S\2 SV(Teich) 57.3 ml SI(Teich) 31.1 ml/m\S\2 SV(cubed) 64.4 ml SI(cubed) 34.9 ml/m\S\2 Ao root diam 2.9 cm Ao root area 6.7 cm\S\2 LA dimension 3.9 cm LA/Ao 1.3 Doppler Measurements and Calculations MV E max attila 69.5 cm/sec MV A max attila 75.5 cm/sec MV E/A 0.92 MV dec time 0.27 sec Ao V2 max 92.5 cm/sec Ao max PG 3.4 mmHg Ao max PG (full) 0.98 mmHg LV V1 max PG 2.4 mmHg LV V1 max 78.1 cm/sec TR max attila 174.3 cm/sec
[2018-02-27] MEDS ORDERED: ISR5 PO (14:27)
--- NOTE | 2018-02-27 14:28 | Discharge Instructions ---
Discharge Instructions Date of Service February 27, 2018. Admission Reason for Admission: Left Sided Chest Pain Discharge Discharge Diagnosis / Problem: chest pain, negative stress test Discharge Goals Goal(s): Diagnostic testing, Therapeutic intervention Activity Recommendations Activity Limitations: as noted below Lifting Limitations: gradually increase as tolerated . Current Hospital Diet Patient's current hospital diet: AHA Diet (Heart Healthy), Diabetes Type 2 Diet Discharge Diet Recommended Diet: Low Sodium Diet (2gm Na), Diabetes Type 2 Diet Pending Studies Studies pending at discharge: no Laboratory Results Hemoglobin A1c Test 02/27/18 03:45 Range/Units Estimated Average Glucose 192 mg/dl Hemoglobin A1c 8.3 H 4.5-5.6 % Lipid Panel Test 02/27/18 03:45 Range/Units Triglycerides Level 253 H 0-150 mg/dl Cholesterol Level 143 0-200 mg/dl HDL Cholesterol 43 mg/dl Cholesterol/HDL Ratio 3.3 LDL Cholesterol, Calculated 49 mg/dl Medical Emergencies . Who to Call and When: Medical Emergencies: If at any time you feel your situation is an emergency, please call 911 immediately. . Non-Emergent Contact Non-Emergency issues call your: Primary Care Provider, Machine Washer Call Non-Emergent contact if: temperature is above 101, your pain is not controlled . . "Provider Documentation" section prepared by Trev Watson. .
[2018-02-27] MEDS ORDERED: ISOSORBIDE DINITRATE 5 MG TAB PO SCH (14:45)
--- NOTE | 2018-02-27 17:39 | Discharge Summary ---
Discharge Summary Date of Service February 27, 2018. Discharge Summary Admission Date: February 26, 2018 at 20:42 Discharge Date: February 27, 2018 Discharge Disposition: Home Principal Diagnosis: chest pain Immunizations: Have You Had Influenza Vaccine: Unknown History of Tetanus Vaccine?: Unknown History of Pneumococcal: Unknown History of Hepatitis B Vaccine: Unknown Consultations: Dobutamine stress test negative for inducible ischemic change Medication Reconciliation New Medications: Isosorbide Dinitrate (Isosorbide Dinitrate) 5 Mg Tab 5 MG PO BID@0700,1200, #60 TAB 6 Refills Continued Medications: Apixaban (Eliquis) 5 Mg Tab 5 MG PO BID, TAB Aspirin (Aspirin Ec) 81 Mg Tab 81 MG PO QAM Atorvastatin (Lipitor) 80 Mg Tab 80 MG PO QAM, TAB Clopidogrel (Plavix) 75 Mg Tab 75 MG PO QAM, TAB Insulin Glargine (Lantus Solostar) 100 Unit/Ml Inj 10 UNITS SC AMPM, PEN Metformin Hcl (Glucophage) 500 Mg Tab 500 MG PO BID, TAB Metoprolol Tartrate (Lopressor) (Lopressor) 25 Mg Tab 12.5 MG PO BID, TAB Nitroglycerin (Nitrostat) 0.4 Mg Tab 0.4 MG SL DIRECTED PRN for Chest Pain, BTL Pantoprazole (Protonix) 40 Mg Tab 40 MG PO QAM, #30 TAB Discharge Exam Review of Systems: Constitutional: No fever, No chills Respiratory: No cough, No sputum Cardiovascular: No chest pain, No orthopnea Physical Exam: General Appearance: WD/WN, no apparent distress Neck: supple, no JVD Respiratory/Chest: chest non-tender, lungs clear, normal breath sounds Cardiovascular: regular rate, rhythm, no murmur Hospital Course 47 y/o F pMHx of MA s/p stent with cardioembolic stroke (08/2017), DMII, HTN, tobacco abuse presented to the ED today with acute onset left sided chest pain. Chest pain recent MA s/p stent (08/2017), no acute ECG changes on presentation past echo showed EF 45%, chronic systolic heart failure - Cardiology consulted perform stress test which was unremarkable for inducible ischemic change however they did recommend institution of low-dose nitrate therapy as an outpatient. The patient was offered to stay for 24 hours to see if she tolerates the medication but preferred to have a dose before she left him to go home with follow-up as an outpatient with her primary care provider DM - poorly controlled, HbA1c 13.3 (08/29) Continue home insulin dosing HTN - metoprolol GERD - pantoprazole Nicotine abuse - nicotine patch ordered, counseling information given for the patient to stop smoking when she leaves the facility Full code Total Time Spent: Greater than 30 minutes This includes examination of the patient, discharge planning, medication reconciliation, and communication with other providers. Discharge Instructions Please refer to the electronic Patient Visit Report (Discharge Instructions) for additional information.
[2018-02-28] MEDS ORDERED: ISOSORBIDE DINITRATE 5 MG TAB PO SCH (07:00)
== END 2018-02-27 16:48 | disposition home or self-care (01) ==
LOC: C.EDA 18:02 → EDBD 18:02 → C.2T 20:42 → ENRESERV 20:50
PROVIDERS: ADMIT Hospitalist; ATTEND Internal Medicine
DX: R07.9 Chest pain, unspecified (principal); I25.2 Old myocardial infarction; E11.9 Type 2 diabetes mellitus without complications; I10 Essential (primary) hypertension; K21.9 Gastro-esophageal reflux disease without esophagitis; I25.10 Atherosclerotic heart disease of native coronary artery without angina pectoris; I25.5 Ischemic cardiomyopathy; E78.5 Hyperlipidemia, unspecified; F17.200 Nicotine dependence, unspecified, uncomplicated; Z86.73 Personal history of transient ischemic attack (TIA), and cerebral infarction without residual deficits; Z79.01 Long term (current) use of anticoagulants; Z79.82 Long term (current) use of aspirin; Z79.4 Long term (current) use of insulin; Z79.02 Long term (current) use of antithrombotics/antiplatelets; Z82.49 Family history of ischemic heart disease and other diseases of the circulatory system; Z84.1 Family history of disorders of kidney and ureter

== ENCOUNTER → 2018-06-08 | Outpatient (CLI) | payer OTHER ==
[~2018-06-08] MED LIST changes: -ASPI-320 PO; +ASPI81TA28 PO; +ATOR-26 PO; +CLOP1TAB15 PO; -CLOP1TAB5 PO; -FURO-85 PO; +ISR5 PO; -LPR25 PO; -LPT40 PO; +METO25TA56 PO; +NTRGSL/4 SL; -NTRSLP4 SL
[2018-06-08 17:10] LABS: ALBUMIN 3.1 gm/dl (3.4-5.0); ALKALINE PHOSPHATASE 136 U/L (45-117); ALT/SGPT 20 U/L (12-78); AST/SGOT 11 U/L (15-37); BLOOD UREA NITROGEN 6 mg/dl (7-18); CALCIUM 8.5 mg/dl (8.5-10.1); CARBON DIOXIDE 29 mmol/L (21-32); CHOLESTEROL 147 mg/dl (0-200); CREATININE 0.67 mg/dl (0.60-1.20); GLUCOSE 140 mg/dl (70-99); LDL CHOLESTEROL CALCULATED 58 mg/dl; POTASSIUM 3.8 mmol/L (3.5-5.1); SODIUM 137 mmol/L (136-145); TOTAL PROTEIN 7.7 gm/dl (6.4-8.2)
[2018-06-09 05:31] LABS: HEMOGLOBIN A1C 8.6 % (4.5-5.6)
== END | disposition home or self-care (01) ==
LOC: C.LABPBG 15:55
PROVIDERS: ATTEND Family Medicine
DX: E11.9 Type 2 diabetes mellitus without complications (principal)